=== PATIENT | female | born 1990 | race Caucasian/White ===

== ENCOUNTER 2022-11-22 15:22 | Outpatient (CLI) | payer MEDICAID, SELFPAY ==
[2022-11-22 19:23] LABS: Chlamydia DNA Amplified* NOT DETECTED (No Detected); GC DNA Amplified* NOT DETECTED (No Detected)
== END 2022-11-22 15:23 | disposition home or self-care (01) ==
LOC: NFLDREF 15:23
PROVIDERS: Visit Provider Registered Nurse
DX: Z34.91 Encounter for supervision of normal pregnancy, unspecified, first trimester (principal); Z3A.09 9 weeks gestation of pregnancy
CPT/HCPCS: 76817; 86592; 86703; 86704; 86706; 86762; 86787; 86803; 86850; 86900; 86901; 87086; 87340; 87491; 87591

== ENCOUNTER 2023-01-06 18:06 | Emergency (ER) | payer MEDICAID, SELFPAY ==
[2023-01-06 18:13] VITALS: BP 141/83; PULSE 103; RESP 18; TEMP 37.3; O2SAT 97; BMI 36.0
--- NOTE | 2023-01-06 18:36 | ED_ITS ---
HPI - Headache General Date Seen: 01/06/23 Chief Complaint: Headache/Migraine Stated Complaint: 15 weeks , migraine 6 days Time Seen by Provider: 01/06/23 18:14 Source: patient Mode of arrival: ambulatory Limitations: no limitations History of Present Illness HPI Narrative: Patient is a 32-year-old female with history of migraines who is presenting to the emergency department for a migraine. She states the headaches become life the past 6 days and his pulse to be in the back of her head. States she has had headaches like this before with a have never lasted this long. She was saw her OB and they gave her sumatriptan which usually helps with the symptoms. She has also been taking Tylenol for the symptoms and has not been helping. She is feeling mildly nauseated but has not vomited. Denies fevers, chills, weakness, numbness, lightheadedness, dizziness, diarrhea, abdominal pain, chest pain, shortness of breath. No other concerns at this time Related Data Home Medications Medication Instructions Recorded Confirmed calcium carbonate 200 mg calcium 200 mg PO BID 11/22/22 12/20/22 (500 mg) chewable tablet (Tums) cetirizine 10 mg tablet (Zyrtec) 10 mg PO QDAY PRN 11/22/22 12/20/22 docosahexaenoic acid 200 mg mg PO 11/22/22 12/20/22 capsule ( DHA) Previous Rx's Medication Instructions Recorded ondansetron 4 mg disintegrating 4 mg PO Q6H #30 tabs 11/22/22 tablet sumatriptan succinate 50 mg tablet 50 mg PO ONCE #10 tabs 01/04/23 Allergies Allergy/AdvReac Type Severity Reaction Status Date / Time No Known Drug Allergies Allergy Verified 12/20/22 11:38 Review of Systems Status of ROS: Reports: 10 or more systems reviewed and unremarkable except as noted in History and below PFSH PFSH Surgical History History of cholecystectomy ?Z90.49 - Acquired absence of other specified parts of digestive tract (ICD- 10) H/O endoscopy ?Z98.890 - Other specified postprocedural states (ICD-10) H/O colonoscopy ?Z98.890 - Other specified postprocedural states (ICD-10) Family History Aunt Ovarian cancer Social History What is your current living situation?: I presently have a place to live Problems where you live: no known problems In the past 12 months, utilities in danger of being shut off: no In past 12 months, lack of transportation kept you from medical appts, meetings, work, or getting things needed for daily living: no In the past 12 mos, have been you worried that your food would run out before you had money to buy more?: never true In the past 12 mos, the food you bought just didn't last and you didn't have money to buy more?: never true How often does anyone, including family, friends and others, physically hurt you : never How often does anyone, including family, friends and others, insult or talk down to you: never How often does anyone, including family, friends and others, threaten you with harm: never How often does anyone, including family, friends and others, scream or curse at you: never Little interest or pleasure in doing things: several days Feeling down, depressed, or hopeless: several days Exam Narrative: Exam Narrative: Const: Well-nourished, Well-developed, in mild distress Eyes: PERRL, no conjunctival injection, and symmetrical lids HENT: Atraumatic external nose and ears. Moist mucous membranes. Neck: Symmetric, trachea midline, No thyromegaly. CVS: RRR, No murmurs or gallops. Peripheral pulses 2+ and equal in all extremities RESP: Unlabored respiratory effort. Clear to auscultation bilaterally. GI: Nontender/Nondistended, No rebound or guarding. MSK:Extremities w/o deformity, Normal Active ROM Skin: Warm, Dry. No rashes or lesions. Neuro: Normal Muscle tone, No focal neurological deficits. Psych: Awake, Alert, & Oriented x3. Appropriate mood and affect. Const: Vital Signs, click to edit/add: Vital Signs - 24 hr 01/06/23 18:13 Temperature 99.1 F Pulse Rate [Pulse Oximeter] 103 H Respiratory Rate 18 Blood Pressure [Ri ght Upper Arm] 141/83 H Pulse Oximetry 97 Oxygen Delivery Me thod Room Air Course Vital Signs Vital signs: Initial Vital Signs Temperature 99.1 F 01/06/23 18:13 Temperature Source Temporal Artery Scan 01/06/23 18:13 Pulse Rate 103 H 01/06/23 18:13 Respiratory Rate 18 01/06/23 18:13 Blood Pressure 141/83 H 01/06/23 18:13 Blood Pressure Mean 102 01/06/23 18:13 Pulse Oximetry 97 01/06/23 18:13 Oxygen Delivery Method Room Air 01/06/23 18:13 Vital Signs Temperature 99.1 F 01/06/23 18:13 Pulse Rate 103 H 01/06/23 18:13 Respiratory Rate 18 01/06/23 18:13 Blood Pressure 141/83 H 01/06/23 18:13 Pulse Oximetry 97 01/06/23 18:13 Oxygen Delivery Method Room Air 01/06/23 18:13 Temperature 99.1 F 01/06/23 18:13 Pulse Rate 103 H 01/06/23 18:13 Respiratory Rate 18 01/06/23 18:13 Blood Pressure 141/83 H 01/06/23 18:13 Pulse Oximetry 97 01/06/23 18:13 Oxygen Delivery Method Room Air 01/06/23 18:13 Medications Administered Medications: Generic Name Dose Route Start Last Admin Trade Name Macy PRN Reason Stop Dose Admin Acetaminophen 1,000 mg 01/06/23 18:25 01/06/23 18:45 Acetaminophen 500 Mg Tablet PO 01/06/23 18:26 1,000 mg ONCE ONE Administration Diphenhydramine HCl 25 mg 01/06/23 18:25 01/06/23 18:46 Diphenhydramine 50 Mg/Ml Inj IVP 01/06/23 18:26 25 mg ONCE ONE Administration Lactated Ringer's 1,000 mls @ 1,000 mls/hr 01/06/23 18:25 01/06/23 18:46 Lactated Ringers 1000 Ml IV 01/06/23 19:24 1,000 mls/hr .Q1H ONE Administration Metoclopramide HCl 10 mg 01/06/23 18:25 01/06/23 18:46 Metoclopramide Hcl 5 Mg/Ml Inj IVP 01/06/23 18:26 10 mg ONCE ONE Administration MDM - Headache MDM Narrative Medical decision making narrative: Patient is a 32-year-old female presenting to emergency for her migraine. She has had migraines like this multiple times in the past. Symptoms are not improving with her home medication. States she has come emergency department before for her migraines she was given migraine cocktail which resolved the symptoms. I do not find it necessary to do imaging at this time since she has had similar headaches in the past. She will be given a migraine cocktail with Reglan, Benadryl, 1 L fluids and Tylenol. Patient is feeling much better after the migraine cocktail. She can be discharged home. She is agreeable to this plan. Discharge Plan Discharge Clinical Impression: Migraines Qualifiers: Migraine type: unspecified Status migrainosus presence: without status migrainosus Intractability: not intractable Qualified Code(s): G43.909 - Migraine, unspecified, not intractable, without status migrainosus Patient Disposition: Home, Self-Care Condition: Improved Instructions: Migraine Headache (ED) Additional Instructions: Follow-up with your primary care provider symptoms persist. Return for new or worsening symptoms. Prescriptions: No Action DHA 200 mg capsule PO cetirizine [Zyrtec] 10 mg tablet 10 mg PO QDAY PRN calcium carbonate [Tums] 200 mg calcium (500 mg) tablet,chewable 200 mg PO BID ondansetron 4 mg tablet,disintegrating 4 mg PO Q6H Qty: 30 1RF sumatriptan succinate 50 mg tablet 50 mg PO ONCE Qty: 10 0RF Rx Instructions: Take 1 tablet at onset. If no relief, can repeat by taking 1 tablet at least 2 hours later. Max is 4 tablets per 24 hours. Follow Up/Referrals: Provider,Not a Local [Primary Care Provider] - Stand Alone Forms: [facility] Info Inst[facility]
[2023-01-06] MEDS: ACETAMINOPHEN 500 MG TABLET 1000 MG PO (18:45)
[2023-01-06] MEDS: LACTATED RINGERS 1000 ML 1,000 ML IV (18:46)
[2023-01-06] MEDS: diphenhydrAMINE 50 MG/ML inj 25 MG IVP (18:46)
[2023-01-06] MEDS: METOCLOPRAMIDE HCL 5 MG/ML INJ 10 MG IVP (18:46)
== END 2023-01-06 19:38 | disposition home or self-care (01) ==
PROVIDERS: Emergency Provider Student in an Organized Health Care Education/Training Program
DX: G43.909 Migraine, unspecified, not intractable, without status migrainosus (principal)
CPT/HCPCS: 96374; 96375; 99283; 99284; A9270; J1200; J2765; J7120

== ENCOUNTER 2023-01-10 14:09 | Outpatient (CLI) | payer MEDICAID, SELFPAY | END 2023-01-10 14:10 | disposition home or self-care (01) | PROVIDERS: Visit Provider Obstetrics & Gynecology | DX: Z34.92 Encounter for supervision of normal pregnancy, unspecified, second trimester (principal); Z3A.16 16 weeks gestation of pregnancy | CPT/HCPCS: 82565; 82570; 84156; 84450; 84460; 84520 ==

== ENCOUNTER 2023-04-09 10:29 | Outpatient (REF) | payer MEDICAID, SELFPAY ==
--- OUTSIDE RECORDS SUMMARY | 2023-04-10 07:41 | XMS_ITS | Encounter Summary ---
Author Name Unknown Organization [place] Address [facility] [place] [address] Care Team Providers Care [employer] Scoreboard Operator Name Role Phone Karen Peña MD Primary [facility] P [facility] PROVIDER RELATIONS CONSULTANT Unavailable [phone] Reason for Referral * Consultation (Routine: Next available opening) - Pending Review Specialty Diagnoses / Procedures Referred By Jose L reeves Referred To Contact Diagnoses Family history of carrier of genetic disease Kimberly Theodore MD [id number] [place] [address] Referral ID Status Reason Start Date Expiration Date V isits Requested Visits Authorized [id number] Pending Review 02/20/2023 02/20/2024 1 1 Scheduling Instructions Gc after at on 02/21 H ROLLER OPERATOR Encounter Details Date Type Department Care Team (Late st Contact Info) Description 02/20/2023 Orders Only [facility] [place] [address] [place] [address] [place] [facility] [id number] [place] [address] Family history of carrier of genetic disease (Primary Dx) Social History Tobacco Use Types Packs/Day Years Used Date Smoking Tobacco: Some Days Cigarettes 0.5 Smokeless Tobacco: Never Alcohol Use Standard Drinks/Week Comments Yes 0 (1 standard drink = 0.6 oz pur e alcohol) occ PHQ-2 Answer Date Recorded PHQ-2 Score 3 10/29/2019 Adolescent Education Answer Date Record ed Getting School Help Needed Not on file 11/10 Estimated Date of Delivery Comme nts Yes 06/26/2023 Based on last me nstrual period of 09/19/2022 Sex and Gender Information Value Date Recorded Sex Assigned at Not on file Gender Identity Not on file Sexual Orientation Not on file documented as of this encounter Plan of Treatment Scheduled Referrals Name Type Priority Associated Diagnoses Orde r Schedule MFM Genetic Counseling Referral Routine: Next available opening Family history of carrier of genetic disease Expected: 02/20/2023 (Approximate), Expires: 02/21/2024 documented as of this encounter Visit Diagnoses Diagnosis Family history of carrier of genetic disease- Primary Family history of genetic disease carrier documented in this encounter Additional Health Concerns Assessment Noted Time PHQ-9 Depression Total Score: 14 020 4:15 PM CDT documented as of this encounter Care Teams [employer] Scoreboard Operator Relationship Specialty Start Date End Date Karen Peña MD [address] [place] [address] PCP - General Internal Medicine 09/16/18 Benita Gonsales NP [facility] [address] [place] [address] Nurse Practitioner Nurse Practitioner Psych/Mental Health 09/17/18 documented as of this encounter
--- OUTSIDE RECORDS SUMMARY | 2023-04-10 07:41 | XMS_ITS | Clinical Summary ---
Author Name Unknown Organization [facility] Address [address] [place] [id number] Care Team Providers [facility] Service Worker Name Role Phone Karen Peña MD Primary Care P rovider [facility] CL[facility] Unavailable [phone] Allergies No known active allergies Medications Medication Sig Dispensed Refills Start Date End Date Status cetirizine (ZYRTEC) 10 MG tablet Take 10 mg by mouth daily 0 Active medroxyPROGESTERone (DEPO-PROVERA) 150 MG/ML IM injectionIndications :Dysmenorrhea,Depo-P rovera contraceptive status Inject 1 mL (150 mg) into the muscle every 3 months 3 mL 3 10/29/2019 Active Additional Information Patient not taking.Reported on 04/11/2021 cyclobenzaprine (FLEXERIL) 10 MG tabletIndications:Ac [place] right-sided low back pain without sciatica Take 0.5-1 tablets (5-10 mg) by mouth 3 times daily as needed for muscle spasms 20 tablet 0 04/11/2021 Active Hospital, Clinic, or Other Facility Administered Medication Ordered Dose Route Frequency Start Date End Date Status medroxyPROGESTERone (DEPO-PROVERA) injection 150 mgIndications:Contracept ion 150 mg IM EVERY 3 MONTHS 02/14/2018 Active medroxyPROGESTERone (DEPO-PROVERA) syringe 150 mgIndications:Contracept verito management 150 mg IM EVERY 3 MONTHS 05/01/2019 Active Active Problems Problem Noted Date Diagnosed Date Acute bilateral low back pain without sciatica 0 04/18/2021 Cervical high risk HPV (human papillomavirus) te st positive 10/17/2018 Obesity (BMI 35.0-39.9) with comorbidity 019 Moderate recurrent major depression 09/17/2018 Hyperlipidemia with target LDL less than 130 01/2018 ROB (generalized anxiety disorder) 06/29/2016 Abnormal Pap smear of cervix 09/19/2014 Overview: 09/19/13 Abnormal pap, patient reported 10/18/14 Normal pap, pt reported 06/20/15 Normal pap, pt reported 07/31/17 ASCUS pap, neg HR HPV. Plan 1 year pap per provider 10/17/18 NIL pap, + HR HPV (16/18). 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 Overview: Overview: Paternal aunt ovarian cancer, dad with colon cancer by age 44, needs genetic evaluation External hemorrhoid 05/28/2013 Family history of colon cancer 05/28/2013 Estimated Date of Delivery Comme nts Yes 06/26/2023 Based on last ca nstrual period of 09/19/2022 Resolved Problems Problem Noted Date Diagnosed Date Resolved Date Anxiety 06/01/2016 09/17/2018 Encounters Date Type Department Care Team Description 03/14/2023 Telephone [facility] [address] [place] [phone] Shari Park GC Results (Friedreich Ataxia results) 02/21/2023 1:15 PM STRATIGRAPHY TEACHER Lab [facility] [address] [place] [phone] Kimberly Theodore MD Jones, Cresta Wedel, MD Family history of carrier of genetic disease 02/21/2023 12:30 PM STRATIGRAPHY TEACHER Office Visit [facility] [address] [place] [phone] Avinash Manning MD Stoner, Natalie E, GC Encounter of female for testing for genetic disease carrier status for procreative management (Primary Dx); Family history of carrier of genetic disease; Encounter for procreative genetic counseling and testing 02/21/2023 12:15 PM STRATIGRAPHY TEACHER Office Visit [facility] Medicine [place] [address] [place] [address] Kimberly Theodore MD Jones, Cresta Wedel, MD Hereditary disease in family possibly affecting fetus, affecting management of mother in , single or unspecified fetus (Primary Dx) 02/21/2023 11:45 AM STRATIGRAPHY TEACHER - 02/21/2023 11:59 PM STRATIGRAPHY TEACHER Hospital Encounter [facility] [place] [address] [place] [address] Kimberly Theodore MD Jones, Cresta Wedel, MD Encounter for follow-up ultrasound of anatomy Discharge Disposition: Home or Self Care 02/21/2023 Medical Correspondence [facility] [address] [place] [address] Outside, Provider 02/21/2023 Travel 02/20/2023 Orders Only [facility] [place] [address] [place] [phone] Shari Park GC Family history of carrier of genetic disease (Primary Dx) 01/29/2023 12:15 PM STRATIGRAPHY TEACHER Office Visit [facility] [place] [address] [place] [phone] Alesia Allred MD Burn, Martina, MD Encounter for follow-up ultrasound of anatomy (Primary Dx); Family history of genetic disease carrier 01/29/2023 11:45 AM STRATIGRAPHY TEACHER - 01/29/2023 11:59 PM STRATIGRAPHY TEACHER Hospital Encounter [facility] [place] [address] [place] [address] Alesia Allred MD Burn, Martina, MD related condition, antepartum Discharge Disposition: Home or Self Care 01/29/2023 11:00 AM STRATIGRAPHY TEACHER Office Visit [facility] [place] [address] [place] [address] Kimberly Theodore MD Stoner, Natalie E, GC Family history of genetic disease carrier (Primary Dx); Encounter for procreative genetic counseling 01/29/2023 Travel 01/19/2023 PRE VISIT [facility] [address] [place] [phone] Rosa Maria Segura RN Ultrasound (L2-Family history Fredreich Ataxia) 01/12/2023 Medical Correspondence [facility] [address] [place] [phone] Outside, Provider 01/12/2023 Transcribe Orders [facility] [place] [address] [place] [phone] Alesia Allred MD related condition, antepartum (Primary Dx) 01/10/2023 Medical Correspondence [facility] [address] [place] [address] Outside, Provider from Last 3 Months Immunizations Name Administration Dates Next Due DTaP, Unspecified 08/15/1993, 1,06/06/1989,01/30/1989, 9 Historic Hib Prohibit 04/09/1990 MMR 01/04/1990 OPV, unspecified 08/15/1993,04/09/1990, 9,1988 TDAP (Adacel,Boostrix) 03/22/2014 Family History Medical History Relation Comments Pancreatitis Brother Colon Cancer Father No Known Problems Maternal Grandfather No Known Problems Maternal Grandmother Gallbladder Disease Mother Gallbladder Disease Paternal Grandfather Other Cancer Paternal Grandfather No Known Problems Paternal Grandmother Gallbladder Disease Sister Relation Status Comments Brother Alive Father Alive Maternal Grandfather Maternal Grandmother Mother Alive Paternal Grandfather Alive Paternal Grandmother Sister Alive Social History Tobacco Use Types Packs/Day Years Used Date Smoking Tobacco: Some Days Cigarettes 0.5 Smokeless Tobacco: Never Tobacco Cessation:Ready to Q uit: No; Counseling Given: No Alcohol Use Standard Drinks/Week Comments Yes 0 [...] on file Sexual Orientation Not on file Last Filed Vital Signs Vital Sign Reading Time Taken Comments Blood Pressure 124/76 04/11/2021 2:28 PM STRATIGRAPHY TEACHER Pulse 78 04/11/2021 2:28 PM STRATIGRAPHY TEACHER Temperature 36.9 ??C (98.5 ??F) 04/11/2021 2:28 PM CS T Respiratory Rate 16 04/11/2021 2:28 PM STRATIGRAPHY TEACHER Oxygen Saturation 99% 04/11/2021 2:28 PM STRATIGRAPHY TEACHER Inhaled Oxygen Concentration - - Weight 88.9 kg (196 lb) 04/11/2021 2:28 PM STRATIGRAPHY TEACHER Height 162.6 cm (5' 4) 04/11/2021 2:28 PM STRATIGRAPHY TEACHER Body Mass Index 33.64 04/11/2021 2:28 PM STRATIGRAPHY TEACHER Plan of Treatment Health Maintenance Due Date Last Done Comments ADVANCE CARE PLANNING 1988 ANNUAL REVIEW OF HM ORDERS 1988 CT COLONOGRAPHY 1988 DEPRESSION ACTION PLAN 1988 FIT 1988 FLEX SIG 1988 HEPATITIS B IMMUNIZATION (1 of 3 - 3-dose series) 1988 sDNA (Cologuard) 1988 COVID-19 Vaccine (#1) 03/12/1989 Pneumococcal Vaccine: Pediatrics (0 to 5 Years) and At-Risk Patients (6 to 64 Years) (1 of 2 - PCV) 1994 HIV SCREENING 09/10/2003 HEPATITIS C SCREENING 2006 HPV FOLLOW-UP 10/18/2019 10/17/2018, 07/31/2017 NICOTINE/TOBACCO CESSATION COUNSELING Q 1 YR 10/18/2019 10/17/2018, 07/31/2017 PAP FOLLOW-UP 10/18/2019 10/17/2018, 07/20, 06/20/2015, Additional history exists YEARLY PREVENTIVE VISIT 10/18/2019 10/17/2018, 07/31 PHQ-9 04/27/2020 10/29/2019, 09/20, 09/17/2018, Additional history exists INFLUENZA VACCINE (#1) 2022 MATERNAL SCREENING DISCUSSION 11/28/2022 OBGCT (OB) 03/06/2023 COLONOSCOPY 10/25/2023 10/24/2018, 06/2018, 04/03/2017, Additional history exists COLORECTAL CANCER SCREENING 10/25/2023 DTAP/TDAP/TD IMMUNIZATION (7 - Td or Tdap) 03/22/2024 03/22/2014, 08/15/1993, 04/09/1990, Additional history exists PAP Discontinued 10/17/2018, 07/20, 06/20/2015, Additional history exists HPV IMMUNIZATION Aged Out No longer e ligible based on patient's age to complete this topic IPV IMMUNIZATION Aged Out No longer e ligible based on patient's age to complete this topic MENINGITIS IMMUNIZATION Aged Out No l onger eligible based on patient's age to complete this topic RSV MONOCLONAL ANTIBODY Aged Out No l onger eligible based on patient's age to complete this topic RSV VACCINE ( & 60+) (No Doses Required) Completed Procedures Procedure Name Priority Date/Time Associated Diagnosis Comments LABORATORY MISCELLANEOUS ORDER Routine 02/21/2023 12:58 PM STRATIGRAPHY TEACHER Family history of carrier of genetic disease [facility] US COMPREHENSIVE SINGLE F/U Routine 02/21/2023 12:26 PM STRATIGRAPHY TEACHER Encounter for follow-up ultrasound of anatomy [facility] US COMPREHENSIVE SINGLE Routine 01/29/2023 12:41 PM STRATIGRAPHY TEACHER related condition, antepartum from Last 3 Months Results * Other Laboratory; [facility]; FXN (Friedreich Ataxia) Repeat Expansion (Laboratory Miscellaneous Order) (02/21/2023 12:58 PM STRATIGRAPHY TEACHER) See Scanned Result LABORATORY MISCELLANEOUS ORDER-Scanned 03/14/2023 1:25 PM STRATIGRAPHY TEACHER MISCELLANEOUS TESTING Blood STRUCTURE OF RIGHT UPPER LIMB / Unknown Venipuncture / Unknown 02/21/2023 12:58 PM STRATIGRAPHY TEACHER 02/21/2023 12:59 PM STRATIGRAPHY TEACHER [facility] - BLOOD ORDERABL ES MISCELLANEOUS TESTING * [facility] Comprehensive Single F/U (02/21/2023 12:26 PM STRATIGRAPHY TEACHER) Anatomical Region Laterality Modality Ultrasound 02/21/2023 11:5 5 AM STRATIGRAPHY TEACHER Impressions 02/21/2023 1:28 PM STRATIGRAPHY TEACHER IMPRESSION ----- 1. Graf intrauterine at 22w 1d gestational age here for completion of anatomy. 2. The remaining anatomic survey was completed, no anomalies commonly detected by ultrasound were identified within the limits of ultrasound. 3. Growth parameters and estimated weight were consistent with established dates. EFW 90%. 4. The amniotic fluid volume appeared normal. Narrative 02/21/2023 1:28 PM STRATIGRAPHY TEACHER ?Comp Follow Up ----- Pat. Name: NAMAN AKHTAR ? Study Date: ??02/21/2023 11:55am Pat. NO: ??[id number] ?Referring ??MD: ALESIA ALLRED Site: ??[facility] ? Binder Technician: Lyudmila Segundo : ??1990 ?Age: ?? 32 ----- INDICATION ----- Suboptimal anatomy on previous u/s. Elevated BMI 35 Family history of Ashley Ataxia - getting carrier screening today METHOD ----- Transabdominal ultrasound examination. View: Sufficient ----- Graf . Number of fetuses: 1 DATING ----- ? Date ?Details ?Gest. age ?MP LMP ?09/19/2022 ? 22 w + 1 d ? 06/26/2023 Prior assessment ? 11/22/2022 ? GA: 9 w + 1 d ?22 w + 1 d ? 06/26/2023 U/S ? 02/21/2023 ?based upon AC, BPD, Femur, HC ? 23 w + 0 d ? 06/20/2023 Assigned dating ?Dating performed on 02/21/2023, based on the LMP ?22 w + 1 d ? 06/26/2023 GENERAL EVALUATION ----- Cardiac activity present. FHR 128 bpm. movements present. Presentation cephalic. Placenta No Previa, > 2 cm from internal os, Anterior. Umbilical cord 3 vessel cord. Amniotic fluid Amount of AF: normal. MVP 5.2 cm. BIOMETRY ----- Main Biometry: BPD ?54.4 ?mm ? 22w 4d ?Renny GALLEGOS ?74.7 ?mm ? 22w 6d ?Nicolaides HC ?206.4 ?mm ?22w 5d ?Hadlock Cerebellum tr ?24.5 ? mm ?22w 4d ?Nicolaides AC ?185.5 ?mm ?23w 2d ?79% ?Hadlock Femur ?41.0 ? mm ?23w 2d ?Hadlock Humerus ?35.9 ?mm ? 22w 4d ?Jagdish Weight Calculation: EFW ? 575 ? g ? 90% ?Hadlock EFW (lb,oz) ? 1 lb 4 ?oz EFW by ?Hadlock (CRA-TM-HB-FL) Head / Face / Neck Biometry: Protozoology Teacher ? 8.1 ? mm CM ?6.6 ? mm ANATOMY ----- The following structures appear normal: Head / Neck ? Cranium. Head size. Head shape. Lateral ventricles. Midline falx. Cavum septi pellucidi. Cerebellum. Cisterna magna. Thalami. Face ? Lips. Profile. Nose. Heart / Thorax ?4-chamber view. RVOT view. LVOT view. 3-vessel view. 3-yfcmkp-xrhxace view. ? Diaphragm. Abdomen ? Cord insertion. Stomach. Kidneys. Bladder. Spine ?Cervical spine. Thoracic spine. Lumbar spine. Sacral spine. Extremities / Skeleton ?Right foot. Gender: female. MATERNAL STRUCTURES ----- Cervix ?Visualized ? Appearance: Appears Closed ? Approach - Transabdominal: Cervical length 51.7 mm Right Ovary ?Normal Left Ovary ?Normal RECOMMENDATION ----- Thank-you for referring your patient for ultrasound assessment. I discussed the findings on today's ultrasound with the patient. I reviewed the limitations of ultrasound. Further ultrasound studies as clinically indicated with her primary team in [place]. Return to primary provider for continued care. If you have questions regarding today's evaluation or if we can be of further service, please contact the [facility]. anomalies may be present but not detected Procedure Note Avinash Manning MD - 02/21/2023 Comp Follow Up ----- Pat. Name: NAMAN AKHTAR Study Date: 02/21/2023 11:55am Pat. NO: [id number] Referring MD: ALESIA ALLRED Site: [facility] Binder Technician: Lyudmila Segundo RDMS : 1990 Age: 32 ----- INDICATION ----- Suboptimal anatomy on previous u/s. Elevated BMI 35 Family history of Ashley Ataxia - getting carrier screening today METHOD ----- Transabdominal ultrasound examination. View: Sufficient ----- Graf . Number of fetuses: 1 DATING ----- DateDetailsGest. age MP LMP w + 1 d 06/26/2023 Prior assessment 11/22/2022 GA: 9 w +1 d22 w + 1 d 06/26/2023 U/S 02/21/2023ased upon AC, BPD, Femur, HC23 w + 0 d 06/20/2023 Assigned dating Dating performed on 02/21/2023, based onthe LMP 22 w+ 1 d 06/26/2023 GENERAL EVALUATION ----- Cardiac activity present. FHR 128 bpm. movements present. Presentation cephalic. Placenta No Previa, > 2 cm from internal os, Anterior. Umbilical cord 3 vessel cord. Amniotic fluid Amount of AF: normal. MVP 5.2 cm. BIOMETRY ----- Main Biometry: BPD 54.4 mm22w 4d Hadlock OFD 74.7 mm22w 6d Nicolaides HC 206.4 mm22w 5d Hadlock Cerebellum tr 24.5 mm22w 4d Nicolaides AC 185.5 mm23w 2d 79% Hadlock Femur 41.0 mm23w 2d Hadlock Humerus 35.9 mm22w 4d Jagdish Weight Calculation: EFW 575 g90% Hadlock EFW (lb,oz) 1 lb 4 oz EFW by Renny ([id number]) Head / Face / Neck Biometry: Protozoology Teacher 8.1 mm CM 6.6 mm ANATOMY ----- The following structures appear normal: Head / Neck Cranium. Head size. Head shape.Lateral ventricles. Midline falx. Cavum septi pellucidi. Cerebellum.Cisterna magna. Thalami. Face Lips. Profile. Nose. Heart / Thorax 4-chamber view. RVOT view. LVOT view.3-vessel view. 1-hjmbbt-ngtbkyk view. Diaphragm. Abdomen Cord insertion. Stomach. Kidneys.Bladder. Spine Cervical spine. Thoracic spine.Lumbar spine. Sacral spine. Extremities / Skeleton Right foot. Gender: female. MATERNAL STRUCTURES ----- Cervix Visualized Appearance: Appears Closed Approach - Transabdominal:Cervical length 51.7 mm Right Ovary Normal Left Ovary Normal RECOMMENDATION ----- Thank-you for referring your patient for ultrasound assessment. I discussed the findings on today's ultrasound with the patient. Ireviewed the limitations of ultrasound. Further ultrasound studies as clinically indicated with her primary teamin [place]. Return to primary provider for continued care. If you have questions regarding today's evaluation or if we can be offurther service, please contact the [facility]. anomalies may be present but not detected IMPRESSION ----- 1. Graf intrauterine at 22w 1d gestational age here forcompletion of anatomy. 2. The remaining anatomic survey was completed, no anomaliescommonly detected by ultrasound were identified within the limits ofprenatal ultrasound. 3. Growth parameters and estimated weight were consistent withestablished dates. EFW 90%. 4. The amniotic fluid volume appeared normal. Kimberly Theodore MD Edgardo [facility] US ORDERABLE S * [facility] Comprehensive Single (01/29/2023 12:41 PM STRATIGRAPHY TEACHER) Anatomical Region Laterality Modality Ultrasound 01/29/2023 11:4 8 AM STRATIGRAPHY TEACHER Impressions 01/29/2023 1:06 PM STRATIGRAPHY TEACHER IMPRESSION ----- 1. Graf intrauterine at 18w 6d gestational age here for evaluation of anatomy. 2. No anomalies commonly detected by ultrasound or soft markers of aneuploidy were identified in the detailed anatomic survey within the limits of ultrasound, however some views were suboptimal, as described above. 3. Growth parameters and estimated weight were consistent with established dates. 4. The amniotic fluid volume appeared normal. 5. On transabdominal imaging the cervix appears long and closed. Narrative 01/29/2023 1:06 PM STRATIGRAPHY TEACHER ?Comprehensive ----- Pat. Name: NAMAN CORTÉS ? Study Date: ??01/29/2023 11:48am Pat. NO: ??[id number] ?Referring ??MD: ALESIA ALLRED Site: ??[facility] ? Binder Technician: Radha Steele RDMS : ??1990 ?Age: ?? 32 ----- INDICATION ----- Family history of Fredreich ataxia. Low risk NIPT. METHOD ----- Transabdominal ultrasound examination. View: Suboptimal view: limited by position. ----- Graf . Number of fetuses: 1 DATING ----- ? Date ?Details ?Gest. age ?MP LMP ?09/19/2022 ? 18 w + 6 d ? 06/26/2023 Prior assessment ? 11/22/2022 ? GA: 9 w + 1 d ?18 w + 6 d ? 06/26/2023 U/S ? 01/29/2023 ? based upon AC, BPD, Femur, HC ? 19 w + 3 d ? 06/22/2023 Assigned dating ?Dating performed on 01/29/2023, based on the LMP ? 18 w + 6 d ? 06/26/2023 GENERAL EVALUATION ----- Cardiac activity present. FHR 126 bpm. movements present. Presentation breech. Placenta Anterior, No Previa, > 2 cm from internal os. Umbilical cord 3 vessel cord. Amniotic fluid Amount of AF: normal. MVP 4.9 cm. BIOMETRY ----- Main Biometry: BPD ?43.4 ?mm ? 19w 1d ?Hadlock OFD ?61.4 ?mm ? 19w 6d ?Nicolaides HC ?168.9 ?mm ?19w 4d ?Hadlock Cerebellum tr ?21.8 ? mm ?20w 6d ?Nicolaides AC ?144.4 ?mm ?19w 5d ?76% ?Hadlock Femur ?30.2 ? mm ?19w 2d ?Hadlock Humerus ?28.7 ?mm ? 19w 2d ?Jagdish Weight Calculation: EFW ? 299 ? g ? 83% ?Hadlock EFW (lb,oz) ? 0 lb 11 ? oz EFW by ?Hadlock (CUS-TC-NI-FL) Head / Face / Neck Biometry: Protozoology Teacher ? 8.0 ? mm CM ?3.3 ? mm Nasal bone ? 5.4 ? mm Nuchal fold ? 4.4 ? mm ANATOMY ----- The following structures appear normal: Head / Neck ? Cranium. Head size. Head shape. Lateral ventricles. Choroid plexus. Midline falx. Cavum septi pellucidi. Cerebellum. Cisterna magna. ? Parenchyma. Thalami. Vermis. ? Neck. Nuchal fold. Face ? Lips. Profile. Nose. Maxilla. Mandible. Orbits. Lens. Heart / Thorax ?4-chamber view. RVOT view. LVOT view. Situs. Aortic arch view. Bicaval view. Ductal arch view. Superior vena cava. Inferior vena cava. ? 1-dpmpnj-lzdejft view. Cardiac position. Cardiac size. Cardiac rhythm. ? Right lung. Left lung. Diaphragm. Abdomen ? Abdominal wall. Cord insertion. Stomach. Bladder. Liver. Bowel. Genitals. Extremities / Skeleton ?Right arm. Right hand. Left arm. Left hand. Right leg. Left leg. Left foot. The following structures could not be adequately visualized: Heart / Thorax ?3-vessel view. Abdomen ? Kidneys. Spine ?Cervical spine. Thoracic spine. Lumbar spine. Sacral spine. Extremities / Skeleton ?Right foot. Gender: female. MATERNAL STRUCTURES ----- Cervix ?Visualized ? Appearance: Appears Closed ? Approach - Transabdominal: Cervical length 39.5 mm Right Ovary ?Not visualized Left Ovary ?Not visualized RECOMMENDATION ----- Thank-you for referring your patient for ultrasound assessment. I discussed the findings on today's ultrasound with the patient. I reviewed the limitations of ultrasound both in detecting aneuploidy and structural abnormalities. Ultrasound, when views completed, can routinely detect 80-90% of structural abnormalities. She had low risk cell free DNA for genetic screening this . Her history is notable for three of her sister's five children being affected by Friedreich's ataxia. She met with our genetic counselor following today's ultrasound to discuss options for carrier screening. Follow-up is scheduled here in three weeks to reassess anatomy that was suboptimally seen today. Return to primary provider for continued care. If you have questions regarding today's evaluation or if we can be of further service, please contact the [facility]. anomalies may be present but not detected I spent a total of 15 minutes on the date of this encounter including preparing to see the patient (reviewing medical records/tests), counseling and discussing the plan of care, documenting the visit in the electronic medical record, and communicating with other health home care scheduler and/or care coordination. Procedure Note Kimberly Theodore MD - 01/29/2023 Comprehensive ----- Pat. Name: NAMAN CORTÉS Study Date: 01/29/2023 11:48am Pat. NO: [id number] Referring MD: ALESIA ALLRED Site: [facility] Binder Technician: Radha Steele RDMS : 1990 Age: 32 ----- INDICATION ----- Family history of Fredreich ataxia. Low risk NIPT. METHOD ----- Transabdominal ultrasound examination. View: Suboptimal view: limited byfetal position. ----- Graf . Number of fetuses: 1 DATING ----- DateDetailsGest. age MP LMP w + 6 d 06/26/2023 Prior assessment 11/22/2022 GA: 9 w +1 d18 w + 6 d 06/26/2023 U/S 3based upon AC, BPD, Femur, HC19 w + 3 d 06/22/2023 Assigned dating Dating performed on 01/29/2023, based onthe LMP 18 w +6 d 06/26/2023 GENERAL EVALUATION ----- Cardiac activity present. FHR 126 bpm. movements present. Presentation breech. Placenta Anterior, No Previa, > 2 cm from internal os. Umbilical cord 3 vessel cord. Amniotic fluid Amount of AF: normal. MVP 4.9 cm. BIOMETRY ----- Main Biometry: BPD 43.4 mm19w 1d Hadlock OFD 61.4 mm19w 6d Nicolaides HC 168.9 mm19w 4d Hadlock Cerebellum tr 21.8 mm20w 6d Nicolaides AC 144.4 mm19w 5d 76% Hadlock Femur 30.2 mm19w 2d Hadlock Humerus 28.7 mm19w 2d Jagdish Weight Calculation: EFW 299 g83% Hadlock EFW (lb,oz) 0 lb 11 oz EFW by Hadlock ([id number]-DV-FL) Head / Face / Neck Biometry: Protozoology Teacher 8.0 mm CM 3.3 mm Nasal bone 5.4 mm Nuchal fold 4.4 mm ANATOMY ----- The following structures appear normal: Head / Neck Cranium. Head size. Head shape.Lateral ventricles. Choroid plexus. Midline falx. Cavum septi pellucidi.Cerebellum. Cisterna magna. Parenchyma. Thalami. Vermis. Neck. Nuchal fold. Face Lips. Profile. Nose. Maxilla.Mandible. Orbits. Lens. Heart / Thorax 4-chamber view. RVOT view. LVOT view.Situs. Aortic arch view. Bicaval view. Ductal arch view. Superior venacava. Inferior vena cava. 3-cnhbyh-xgxejgu view. Cardiacposition. Cardiac size. Cardiac rhythm. Right lung. Left lung.Diaphragm. Abdomen Abdominal wall. Cord insertion.Stomach. Bladder. Liver. Bowel. Genitals. Extremities / Skeleton Right arm. Right hand. Left arm. [place]. Right leg. Left leg. Left foot. The following structures could not be adequately visualized: Heart / Thorax 3-vessel view. Abdomen Kidneys. Spine Cervical spine. Thoracic spine.Lumbar spine. Sacral spine. Extremities / Skeleton Right foot. Gender: female. MATERNAL STRUCTURES ----- Cervix Visualized Appearance: Appears Closed Approach - Transabdominal:Cervical length 39.5 mm Right Ovary Not visualized Left Ovary Not visualized RECOMMENDATION ----- Thank-you for referring your patient for ultrasound assessment. I discussed the findings on today's ultrasound with the patient. Ireviewed the limitations of ultrasound both in detecting aneuploidy andstructural abnormalities. Ultrasound, when views completed, can routinely detect 80-90% of structuralabnormalities. She had low risk cell free DNA for genetic screeningthis . Her history is notable for three of her sister's five children beingaffected by Friedreich's ataxia. She met with our genetic counselorfollowing today's ultrasound to discuss options for carrier screening. Follow-up is scheduled here in three weeks to reassess anatomy that wassuboptimally seen today. Return to primary provider for continued care. If you have questions regarding today's evaluation or if we can be offurther service, please contact the [facility]. anomalies may be present but not detected I spent a total of 15 minutes on the date of this encounter includingpreparing to see the patient (reviewing medical records/tests), counselingand discussing the plan of care, documenting the visit in the electronic medical record, andcommunicating with other health home care scheduler and/or carecoordination. IMPRESSION ----- 1. Graf intrauterine at 18w 6d gestational age here forevaluation of anatomy. 2. No anomalies commonly detected by ultrasound or soft markers ofaneuploidy were identified in the detailed anatomic survey withinthe limits of ultrasound, however some views were suboptimal, as described above. 3. Growth parameters and estimated weight were consistent withestablished dates. 4. The amniotic fluid volume appeared normal. 5. On transabdominal imaging the cervix appears long and closed. [facility] R[facility] from Last 3 Months Care Teams Hospital Tray Service Worker Relationship Specialty Start Date End Date Karen Peña MD [address] [place], [place] [address] PCP - General Internal Medicine 09/16/18 Benita Gonsales NP [facility] [address], [place] [address] Nurse Practitioner Nurse Practitioner Psych/Mental Health 09/17/18
--- OUTSIDE RECORDS SUMMARY | 2023-04-10 07:41 | XMS_ITS | Encounter Summary ---
Author Name Unknown Organization [place] Address [address] [place] [address] Care Team Providers Care Last Greaser Name Role Phone Karen Peña MD Primary Care P rovider DruBenita nobles EMPLOYMENT TRAINING SPECIALIST Unavailable [phone] Encounter Details Date Type Department Care Team (Late st Contact Info) Description 02/21/2023 1:15 PM MARKETING COMMUNICATIONS ASSOCIATE Lab [facility] [address] [place] [address] Kimberly Theodore MD [address] [facility] [address] [place] [address] Avinash Manning MD [address] [facility] [address] [place] [address] Family history of carrier of genetic disease Social History Tobacco Use Types Packs/Day Years [...] as of this encounter Plan of Treatment Not on file documented as of this encounter Procedures Procedure Name Priority Date/Time Associated Diagnosis Comments LABORATORY MISCELLANEOUS ORDER Routine 02/21/2023 12:58 PM MARKETING COMMUNICATIONS ASSOCIATE Family history of carrier of genetic disease documented in this encounter Results * [facility]; FXN (Friedreich Ataxia) Repeat Expansion (Laboratory Miscellaneous Order) (02/21/2023 12:58 PM MARKETING COMMUNICATIONS ASSOCIATE) See Scanned Result LABORATORY MISCELLANEOUS ORDER-Scanned 03/14/2023 1:25 PM MARKETING COMMUNICATIONS ASSOCIATE MISCELLANEOUS TESTING Blood STRUCTURE OF RIGHT UPPER LIMB / Unknown Venipuncture / Unknown 02/21/2023 12:58 PM MARKETING COMMUNICATIONS ASSOCIATE 02/21/2023 12:59 PM MARKETING COMMUNICATIONS ASSOCIATE Shari Park [facility] LAB - BLOOD ORDERABL ES MISCELLANEOUS TESTING documented in this encounter Visit Diagnoses Diagnosis Family history of carrier of genetic disease Family history of genetic disease carrier documented in this encounter Additional Health Concerns Assessment Noted Time PHQ-9 Depression Total Score: 14 020 4:15 PM CDT documented as of this encounter Care Teams Last Greaser Relationship Specialty Start Date End Date Karen Peña MD [address] [place] [address] PCP - General Internal Medicine 09/16/18 Benita Gonsales NP [facility] [address] [place] [address] Nurse Practitioner Nurse Practitioner Psych/Mental Health 09/17/18 documented as of this encounter
--- OUTSIDE RECORDS SUMMARY | 2023-04-10 07:41 | XMS_ITS | Encounter Summary ---
Author Name Unknown Organization [place] Address [address] [place] [id number] Care Team Providers Care Insulation Applicator Name Role Phone Karen Peña MD Primary Care P ronicholasder [facility] FIELD ASSESSOR Unavailable [phone] Reason for Visit * Reason Comments Genetic Counseling Family history emily rn * Consultation (Routine: Next available opening) - Pending Review Specialty Diagnoses / Procedures Referred By Jose L reeves Referred To Contact Diagnoses Family history of carrier of genetic disease Kimberly Theodore MD [address] [facility] [address] [place] [address] Referral ID Status Reason Start Date Expiration Date V isits Requested Visits Authorized [id number] Pending Review 02/20/2023 02/20/2024 1 1 Encounter Details Date Type Department Care Team (Late st Contact Info) Description 02/21/2023 12:30 PM GRIP WRAPPER Office Visit [facility] [place] [address] [facility] [address] [place] [address] Avinash Manning MD [address] [facility] [address] [place] [address] Shari Park GC [address] [place] [address] Encounter of female for testing for genetic disease carrier status for procreative management (Primary Dx); Family history of carrier of genetic disease; Encounter for procreative genetic counseling and testing Social History Tobacco Use Types Packs/Day Years [...] on file documented as of this encounter Progress Notes * Shari Park, GC - 02/21/2023 12:30 PM CST [facility] Genetic Counseling Consult Patient: Tata Akhtar Preferred Name: Tata Date of : 1990 Date of Service: 02/21/23 Tata was seen at the [facility] for genetic consultation. Theindication for genetic counseling is family history concern. The patient was accompanied to this visit by their partner, John. The session was conducted in [place]. IMPRESSION/ PLAN 1. Tata had genetic screening earlier in this . Their non-invasive test was screen negative or low risk for screened conditions 2. During today's [facility] visit, Tata had a blood draw for screening for FXN (Friedreich Ataxia) Repeat Expansion through [employer] due to her family history of two nieces and a nephew with Friedreich Ataxia. Tata previously had a full genetic counseling session with myself on 01-29-23. We discussed options for screening at that time. I called her yesterday to see if she wanted to pursue the screening at this appointment and she elected to do so. Therefore, a genetic counseling session was added to her ultrasound appointment and consent was obtained today. 3. Since the patient chose aneuploidy screening via NIPT, quad screen is NOT recommended in the second trimester. If the patient desires screening for open neural tube defects, maternal serum AFP only is recommended, ideally between 16- 18 weeks gestation. 4. Tata had a level II comprehensive anatomy ultrasound today. Please see the ultrasound report for further details. 5. See [facility] consult note for further recommendations. HISTORY /Parity: Tata's history is insignificant. This is her first . CURRENT Current Age: [age] year old Age at Delivery: 32 year old MP: 06/26/2023, by Last Menstrual Period Gestational Age: 22w1d This is a single gestation. MEDICAL HISTORY Tata???s reported medical history is not expected to impact management or risks to development. FAMILY HISTORY A three-generation pedigree was obtained previously by a genetic counselor on 01-29-23 and is scanned under the Media tab in [employer]. There were no significant updates provided today. Please see the original documentation from myself, Shari Park, MS, [facility], for more information. The family historywas reported by Tata and their partner. Tata has a healthy brother (39y) who has no children. Tata also has a sister (37y) who has fivechildren. Two of Tata's nieces (13y, 6y) and one of her nephews (10y) have Friedreich's Ataxia. Of note, her nephew was diagnosed at 4-years-old. One of her nephews (11y) is a carrier. One of her nieces (7y) is neither a carrier nor affected with Friedreich's Ataxia. See information in carrier screening section. All of her nieces/nephews had molecular testing. Tata reports that she does not have access to one of their reports. Tata does not have a copy of her relative's genetic testing. We talked about how most cases of FAare caused by repeat expansion. I called and spoke to a [facility] genetic counselor, Katy, who confirmed that they could do this testing without a family genetic test report. She explained that a limitation of the test is that if the repeats are >187 the report will state that there is an expanded allele, but they will not know the exact number of repeats. This is a possibility as the greater the repeats, the earlier the onset of the condition. Tata's nephew had symptoms onset at 4-years-old which is early. I collected additional details on the family history for the [facility] requisition form. Affected family members include: Kayleigh Mercado (: 03/28/2012) age of onset: 4y Tiki Wright (: 06/26/2009) age of onset: 6y Sailor Mercado (: 12/07/2016) no symptoms yet, molecular diagnosis The reported family history is unremarkable for multiple miscarriages, stillbirths, defects, intellectual disabilities, and consanguinity. RISK ASSESSMENT FOR INHERITED CONDITIONS AND CARRIER SCREENING OPTIONS Expanded carrier screening is available to screen for autosomal recessive conditions and X-linked conditions in a large list of genes. Carrier screening does not test the but gives a risk assessment for the and future pregnancies to have the condition. Expanded carrier screeningis designed to identify carrier status for conditions that are primarily childhood or adolescent onset. Expanded carrier screening does not evaluate for adult-onset conditions such as hereditary cancer syndromes, dementia/ Alzheimer's disease, or cardiovascular disease risk factors. Additionally, expanded carrier screening is not comprehensive for all known genetic diseases or inherited conditions. Carrier screening does not test for all genetic and health conditions or risk factors. Autosomal recessive conditions happen when a mutation has been inherited from the egg and sperm andinclude conditions like cystic fibrosis, thalassemia, hearing loss, spinal muscular atrophy, and more. We reviewed that when both biological parents carry a harmful genetic change in a gene associated with autosomal recessive inheritance, each of their pregnancies has a 1 in 4 (25%) chance to be affected by that condition. X-linked conditions happen when a mutation has been inherited from the eggand include conditions like fragile X syndrome.With x-linked conditions, the specific risk generally depends on the chromosomal sex of the fetus, with XY individuals (generally male) being most severely affected. [place] screening was not reviewed due to focus on other topics. About [place] Screening The patient does have a family history of a known inherited condition: Friedreich Ataxia. Friedreich Ataxia Friedreich Ataxia (FA) is an autosomal recessive neurodegenerative condition. Clinical manifestations include gradual loss of strength in the arms and legs, dysarthria, ataxic gait, muscle spasticityin the lower limbs, loss of speech, impaired vision, hearing loss, hypertrophic cardiomyopathy and diabetes. FA occurs due to a GAA triplet repeat expansion in the FXN gene. Normal GAA repeat size is 5-33 GAArepeats, premutation is 34-65 GAA repeats and a full mutation is > 66 GAA repeats. Individuals with FA, have inherited a GAA expansion in both copies of their FXN gene, one from each parent. Carriers, like Tata's sister, have one functional FXN gene without a GAA expansion, and one FXN gene with a GAA expansion. In order for Tata and John's to be at risk of having FA, both Tata and John would have to be carriers. Since John does not have a family history of FA, he is at the general population risk to be a carrier for FA, which is 1 in 100 carrier risk. Since Tata's sister is an obligate carrier of FA, there is a 1 in 2 chance that Tata is a carrier of FA. Without pursuing any genetictesting, their risk to have a child with FA is 1 in 800. Tata's carrier risk x John's carrier risk x chance they both pass on a non- working copy of the FXN gene 1/2 x 1/100 x 1/4 = 1 in 800 Tata and John were offered FXN (Friedreich Ataxia) Repeat Expansion testing by [facility] to determine their carrier status. They were provided with CPT codes for testing at [facility]. Tata wanted tocheck with her insurance prior to having her blood drawn. She was provided with my contact information if she decides to pursue carrier screening for FA. We also discussed that if Tata and John were both carriers for FA, their risk to have an affected child would increased to 1 in 4 (25%). If they are both carriers, invasive testing ([facility] or amniocentesis) would be the only option to determine if the is affected. Babies with FA do not have physical defects that could be screened for by comprehensive level II ultrasound. testing could also be done. The patient has not had carrier screening previously. The patient elected to pursue carrier screening today. The screening will include 1 condition, FXN (Friedreich Ataxia) Repeat Expansion, through [facility] conditions. Carrier testing was offered to her partner, John, and declined today. The couple is aware that if Tata's results are positive, John will be recommended to have screening. We reviewed the Informed Consent for Genetic Testing form through [employer] and the patient signed the requisition form. We discussed that: Expanded carrier screening for mutations in a large panel of genes associated with autosomal recessive conditions including cystic fibrosis, spinal muscular atrophy, and others, is now available. We discussed that expanded carrier screening is designed to identify carrier status for conditions that are primarily childhood or adolescent onset. Expanded carrier screening does not evaluate for adult-onset conditions such as hereditary cancer syndromes, dementia/ Alzheimer's disease, or cardiovascular disease risk factors. Additionally, expanded carrier screening is not comprehensive for all known genetic diseases or inherited conditions. This is a screening test, and residual carrier status risk figures will be provided to the patient after results become available. Carrier screening is not meant to diagnose the patient with a condition, and generally carriers are asymptomatic. However, certain genes may confer increased risks for various health concerns in carriers (DMD, FMR1, etc).Patients are encouraged to share results with their primary care providers to ensure appropriate screening. If we are notified by the performing laboratory of a variant reclassification, the patient will be contacted. We reviewed that there is a law in place, the Genetic Information Nondiscrimination Act (JENNIFER), that protects patients from discrimination by health insurance companies and employers based on their genetic information. JENN[place]ER does not protect against discrimination by life insurance companies or disability insurance. We reviewed availability of expanded carrier screening through through [facility] and different panel sizes. [facility] will report on pseudodeficiency alleles, which are benign variants that are not known to be associated with disease and are not thought to impact the individuals risk to be a carrier for these conditions. However, the presence of pseudodeficiency alleles can exhibit false positive results on biochemical tests such as screen. [facility] laboratory will report the common 5T CFTR allele in isolation. If an individual is a carrier, family members could be as well. The patient is encouraged to share positive results with siblings and other family members of reproductive age. Additionally, even if there is not a high reproductive risk for a condition, it is possible that carrier status can be passed on to future generations. It was a pleasure to be involved with [facility]???s care. Hoku-ob-eqoy time of the meeting was 15 minutes. Shari Park, JENNYFER, MS, [facility] Board Certified and [place] Licensed Genetic Counselor [facility] Maternal Medicine Office: [phone] [facility]: [phone] [facility] WRAPPER documented in this encounter Plan of Treatment Not on file documented as of this encounter Results * Other Laboratory; [facility]; FXN (Friedreich Ataxia) Repeat Expansion (Laboratory Miscellaneous Order) (02/21/2023 12:58 PM GRIP WRAPPER) See Scanned Result LABORATORY MISCELLANEOUS ORDER-Scanned 03/14/2023 1:25 PM GRIP WRAPPER MISCELLANEOUS TESTING Blood STRUCTURE OF RIGHT UPPER LIMB / Unknown Venipuncture / Unknown 02/21/2023 12:58 PM GRIP WRAPPER 02/21/2023 12:59 PM GRIP WRAPPER Shari Park GC LAB - BLOOD ORDERABL ES MISCELLANEOUS TESTING documented in this encounter Visit Diagnoses Diagnosis Encounter of female for testing for genetic disease carrier status for procreative management- Primary Testing of female for genetic disease carrier status Family history of carrier of genetic disease Family history of genetic disease carrier Encounter for procreative genetic counseling and testing documented in this encounter Additional Health Concerns Assessment Noted Time PHQ-9 Depression Total Score: 14 020 4:15 PM CDT documented as of this encounter Care Teams Insulation Applicator Relationship Specialty Start Date End Date Karen Peña MD [address] [place] [address] PCP - General Internal Medicine 09/16/18 Benita Gonsales NP [facility] [address] [place] [address] Nurse Practitioner Nurse Practitioner Psych/Mental Health 09/17/18 documented as of this encounter
--- OUTSIDE RECORDS SUMMARY | 2023-04-10 07:41 | XMS_ITS | Encounter Summary ---
Author Name Unknown Organization [place] Address [facility] [place] [address] Care Team Providers Care Back Shoe Cutter Name Role Phone Karen Peña MD Primary [facility] PRODUCT DEVELOPMENT ACTUARY Unavailable [phone] Reason for Visit * Reason Comments Ultrasound L2-subopt anatomy Encounter Details Date Type Department Care Team (Late st Contact Info) Description 02/21/2023 12:15 PM RECREATION TEACHER Office Visit [facility] [place] [address] [facility] [address] [place] [address] Kimberly Theodore MD [address] [place] [address] Avinash Manning MD [address] [place] [address] Hereditary disease in family possibly affecting fetus, affecting management of mother in , single or unspecified fetus (Primary Dx) Social History Tobacco Use Types [...] as of this encounter Progress Notes * Avinash Manning MD - 02/21/2023 12:15 PM CST Please see full imaging report from [employer] program under imaging tab. Avinash Manning MD Maternal Medicine EATION TEACHER documented in this encounter Plan of Treatment Not on file documented as of this encounter Visit Diagnoses Diagnosis Hereditary disease in family possibly affecting fetus, affecting management of mother in , single or unspecified fetus- Primary documented in this encounter Additional Health Concerns Assessment Noted Time PHQ-9 Depression Total Score: 14 020 4:15 PM CDT documented as of this encounter Care Teams Back Shoe Cutter Relationship Specialty Start Date End Date Karen Peña MD [address] [place] [address] PCP - General Internal Medicine 09/16/18 Benita Gonsales NP [facility] [address] [place] [address] Nurse Practitioner Nurse Practitioner Psych/Mental Health 09/17/18 documented as of this encounter
--- OUTSIDE RECORDS SUMMARY | 2023-04-10 07:41 | XMS_ITS | Referral Summary ---
Author Name Unknown Organization [place] Address [address] [place] [address] Care Team Providers Care Brand Development Manager Name Role Phone Karen Peña MD Primary Care P kamaljitder DruBenita nobles NP Unavailable [phone] Encounters Date Type Department Care Team Description 03/14/2023 Telephone [facility] Maternal Medicine [facility] [address] [facility] [address] [place] [address] Shari Park GC Results (Friedreich Ataxia results) 02/21/[address] [facility] [address] [place] [phone] Outside, Provider 02/21/2023 1:15 PM ATTENDANT LODGING [employer]ACILITIES Lab [facility] [address] [place] [address] Kimberly Theodore MD Jones, Cresta Wedel, MD Family history of carrier of genetic disease 02/21/2023 Travel 02/21/2023 12:30 PM ATTENDANT LODGING FACILITIES Office Visit [facility] Medicine [facility] [address] [facility] [address] [place] [address] Avinash Manning MD Stoner, Natalie E, GC Encounter of female for testing for genetic disease carrier status for procreative management (Primary Dx); Family history of carrier of genetic disease; Encounter for procreative genetic counseling and testing 02/21/2023 12:15 PM ATTENDANT LODGING [employer]ACILITIES Office Visit [facility] Maternal [place] [address] [place] [phone] Kimberly Theodore MD Jones, Avinash Lacy MD Hereditary disease in family possibly affecting fetus, affecting management of mother in , single or unspecified fetus (Primary Dx) 02/21/2023 11:45 AM ATTENDANT LODGING [employer]ACILITIES - 02/21/2023 11:59 PM ATTENDANT LODGING [employer]ACILITIES Hospital Encounter [place] [address] [place] [phone] Kimberly Theodore MD Jones, Cresta Wedel, MD Encounter for follow-up ultrasound of anatomy Discharge Disposition: Home or Self Care 02/20/2023 Orders Only [place] [address] [facility] [address] [place] [phone] Shari Park GC Family history of carrier of genetic disease (Primary Dx) 01/29/2023 11:00 AM ATTENDANT LODGING [employer]ILITIES Office Visit [place] [address] [place] [phone] Kimberly Theodore MD Stoner, Natalie E, GC Family history of genetic disease carrier (Primary Dx); Encounter for procreative genetic counseling 01/29/2023 Travel 01/29/2023 12:15 PM ATTENDANT LODGING [employer]ACILITIES [facility] [place] [address] [facility] [address] [place] [phone] Alesia Allred MD Burn, Martina, MD Encounter for follow-up ultrasound of anatomy (Primary Dx); Family history of genetic disease carrier 01/29/2023 11:45 AM ATTENDANT [employer]GING [employer]IES - 01/29/2023 11:59 PM ATTENDANT LODGING [employer]ACILITIES Hospital Encounter [place] [address] [place] [phone] Alesia Allred MD Burn, Martina, MD related condition, antepartum Discharge Disposition: Home or Self Care 01/19/2023 PRE VISIT [place] [address] [facility] [address] [place] [phone] Rosa Maria Segura RN Ultrasound (L2-Family history Fredreich Ataxia) 01/12/2023 Medical Correspondence [facility] [address] [place] [phone] Outside, Provider 01/12/2023 Transcribe Orders [facility] [place] [address] [facility] [address] [place] [phone] Alesia Allred MD related condition, antepartum (Primary Dx) 01/10/2023 Medical Correspondence [facility] [address] [place] [phone] Outside, Provider from Last 3 Months Allergies No known active allergies Medications Medication [...] on 04/11/2021 cyclobenzaprine (FLEXERIL) 10 MG tabletIndications:Ac curyung right-sided low back pain without sciatica Take [...] on last me nstrual period of 09/19/2022 Resolved Problems Problem Noted Date Diagnosed Date Resolved Date Anxiety 06/01/2016 09/17/2018 Immunizations Name Administration Dates Next Due DTaP, Unspecified 08/15/1993, 1,06/06/1989,01/30/1989, 9 Historic Hib Prohibit 04/09/1990 MMR 01/04/1990 OPV, unspecified 08/15/1993,04/09/1990, 9,1988 TDAP (Adacel,Boostrix) 03/22/2014 Social History Tobacco Use Types Packs/Day Years [...] Comments Blood Pressure 124/76 04/11/2021 2:28 PM ATTENDANT [employer]ODGING [employer]ITIES Pulse 78 04/11/2021 2:28 PM ATTENDANT [employer]ODGING [employer]ITIES Temperature 36.9 ??C (98.5 ??F) 04/11/2021 2:28 PM CS T Respiratory Rate 16 04/11/2021 2:28 PM ATTENDANT LODGING [employer]ACILITIES Oxygen Saturation 99% 04/11/2021 2:28 PM ATTENDANT LODGING [employer]ILITIES Inhaled Oxygen Concentration - - Weight 88.9 kg (196 lb) 04/11/2021 2:28 PM ATTENDANT [employer]ODGING [employer]ILITIES Height 162.6 cm (5' 4) 04/11/2021 2:28 PM ATTENDANT [employer]ODGING [employer]ILITIES Body Mass Index 33.64 04/11/2021 2:28 PM ATTENDANT [employer]ODGING [employer]ILITIES Plan of Treatment Not on file Procedures Procedure Name Priority Date/Time Associated Diagnosis Comments LABORATORY MISCELLANEOUS ORDER Routine 02/21/2023 12:58 PM ATTENDANT LODGING [employer]ILITIES Family history of carrier of genetic disease [facility] US COMPREHENSIVE SINGLE F/U Routine 02/21/2023 12:26 PM ATTENDANT LODGING [employer]ACILITIES Encounter for follow-up ultrasound of anatomy [facility] US COMPREHENSIVE SINGLE Routine 01/29/2023 12:41 PM ATTENDANT [employer]ODGING [employer]ILITIES related condition, antepartum from Last 3 Months Results * Other Laboratory; [facility]; FXN (Friedreich Ataxia) Repeat Expansion (Laboratory Miscellaneous Order) (02/21/2023 12:58 PM ATTENDANT LODGING [employer]ACILITIES) See Scanned Result LABORATORY MISCELLANEOUS ORDER-Scanned 03/14/2023 1:25 PM ATTENDANT LODGING [employer]ACILITIES MISCELLANEOUS TESTING Blood STRUCTURE OF RIGHT UPPER LIMB / Unknown Venipuncture / Unknown 02/21/2023 12:58 PM ATTENDANT LODGING FACILITIES 02/21/2023 12:59 PM ATTENDANT LODGING [employer]ACILITIES Shari Park GC LAB - BLOOD ORDERABL ES MISCELLANEOUS TESTING * [facility] US Comprehensive Single F/U (02/21/2023 12:26 PM ATTENDANT LODGING [employer]ACILITIES) Anatomical Region Laterality Modality Ultrasound 02/21/2023 11:5 5 AM ATTENDANT LODGING [employer]ILITIES Impressions 02/21/2023 1:28 PM ATTENDANT LODGING [employer]ACILITIES IMPRESSION ----- 1. Graf intrauterine at 22w 1d gestational age here for completion of anatomy. 2. The remaining anatomic survey was completed, no anomalies commonly detected by ultrasound were identified within the limits of ultrasound. 3. Growth parameters and estimated weight were consistent with established dates. EFW 90%. 4. The amniotic fluid volume appeared normal. Narrative 02/21/2023 1:28 PM ATTENDANT LODGING [employer]ACILITIES ?Comp Follow Up ----- Pat. Name: NAMAN AKHTAR ? Study Date: ??02/21/2023 11:55am Pat. NO: ??[id number] ?Referring ??: ALESIA ALLRED Site: ??[facility] ? Office Mover: Lyudmila Segundo RDMS : ??1990 ?Age: ?? 32 ----- [...] Biometry: BPD ?54.4 ?mm ? 22w 4d ?Hadlock OFD ?74.7 ?mm ? 22w 6d ?Nicolaides HC ?206.4 ?mm ?22w 5d ?Hadlock Cerebellum tr ?24.5 ? mm ?22w 4d ?[place]olaides AC ?185.5 ?mm ?23w 2d ?79% ?Hadlock Femur ?41.0 ? mm ?23w 2d ?Hadlock Humerus ?35.9 ?mm ? 22w 4d ?[place]ag[place]ish Weight Calculation: EFW ? 575 ? g ? 90% ?Hadlock EFW (lb,oz) ? 1 lb 4 ?oz EFW by ?Hadlock ([id number]) Head / Face / Neck Biometry: Indirect Sales Representative ? 8.1 ? mm CM ?6.6 ? mm ANATOMY ----- The following structures appear normal: Head / Neck ? Cranium. Head size. Head shape. Lateral ventricles. Midline falx. Cavum septi pellucidi. Cerebellum. Cisterna magna. Thalami. Face ? Lips. Profile. Nose. Heart / Thorax ?4-chamber view. RVOT view. LVOT view. 3-vessel view. 0-myxqyj-zfmswgi view. ? Diaphragm. Abdomen ? Cord insertion. [...] clinically indicated with her primary team in [place]. Return to primary provider for continued care. If you have questions regarding today's evaluation or if we can be of further service, please contact the [facility]. anomalies may be present but not detected Procedure Note Avinash Manning MD - 02/21/2023 Comp Follow Up ----- Pat. Name: NAMAN AKHTAR Study Date: 02/21/2023 11:55am Pat. NO: [id number] Referring MD: ALESIA ALLRED Site: [facility] Office Mover: Lyudmila Segundo RDMS : 1990 Age: 32 [...] (lb,oz) 1 lb 4 oz EFW by Hadlock ([id number]-FL) Head / Face / Neck Biometry: Indirect Sales Representative 8.1 mm CM 6.6 mm ANATOMY ----- The following structures appear normal: Head / Neck Cranium. Head size. Head shape.Lateral ventricles. Midline falx. Cavum septi pellucidi. Cerebellum.Cisterna magna. Thalami. Face Lips. Profile. Nose. Heart / Thorax 4-chamber view. RVOT view. LVOT view.3-vessel view. 0-eauggx-jkgyyuc view. Diaphragm. Abdomen Cord insertion. Stomach. Kidneys.Bladder. [...] as clinically indicated with her primary teamin [place]. Return to primary provider for continued care. [...] fluid volume appeared normal. Kimberly Theodore MD [facility] US ORDERABLE S * [facility] Comprehensive Single (01/29/2023 12:41 PM ATTENDANT LODGING [employer]ACILITIES) Anatomical Region Laterality Modality Ultrasound 01/29/2023 11:4 8 AM ATTENDANT [employer]GING [employer]ITIES Impressions 01/29/2023 1:06 PM ATTENDANT [employer]ODGING [employer]ILITIES IMPRESSION ----- 1. Graf intrauterine at 18w [...] long and closed. Narrative 01/29/2023 1:06 PM ATTENDANT [employer]ODGING [employer]ITIES ?Comprehensive ----- Pat. Name: NAMAN CORTÉS ? Study Date: ??01/29/2023 11:48am Pat. NO: ??[id number] ?Referring ??MD: ALESIA ALLRED Site: ??[facility] ? Office Mover: Radha Steele RDMS : ??1990 ?Age: ?? [...] lb 11 ? oz EFW by ?Hadlock ([id number]-SB-[id number]-FL) Head / Face / Neck Biometry: Indirect Sales Representative ? 8.0 ? mm CM ?3.3 ? [...] Superior vena cava. Inferior vena cava. ? 9-rbnxyq-vfylrul view. Cardiac position. Cardiac size. Cardiac rhythm. [...] medical record, and communicating with other health manager critical care and/or care coordination. Procedure Note Kimberly Theodore MD - 01/29/2023 Comprehensive ----- Pat. Name: NAMAN CORTÉS Study Date: 01/29/2023 11:48am Pat. NO: [id number] Referring MD: ALESIA ALLRED Site: [facility] Office Mover: Radha Steele RDMS : 1990 Age: 32 [...] 0 lb 11 oz EFW by Hadlock (BCS-IM-IU-FL) Head / Face / Neck Biometry: Indirect Sales Representative 8.0 mm CM 3.3 mm Nasal bone [...] arch view. Superior venacava. Inferior vena cava. 4-lpfzah-lfwyvma view. Cardiacposition. Cardiac size. Cardiac rhythm. Right [...] electronic medical record, andcommunicating with other health manager critical care and/or carecoordination. IMPRESSION ----- 1. Graf intrauterine [...] the cervix appears long and closed. Alesia Allred MD [facility] US O RDERABLES from Last 3 Months Care Teams Brand Development Manager Relationship Specialty Start Date End Date Karen Peña MD [address] [place] [address] PCP - General Internal Medicine 09/16/18 Benita Gonsales NP [facility] [address] [place] [address] Nurse Practitioner Nurse Practitioner Psych/Mental Health 09/17/18
--- OUTSIDE RECORDS SUMMARY | 2023-04-10 07:41 | XMS_ITS | Encounter Summary ---
Author Name Unknown Organization [place] Address [address] [place] [address]. [place] [address] Care Team Providers Care Pin Feather Machine Operator Name Role Phone Karen Peña MD Primary Care P [facility]vider [facility] SUPERVISOR PLASMA Unavailable [phone] Encounter Details Date Type Department Care Team (Late st Contact Info) Description 02/21/2023 Medical Correspondence [facility] Info [place] [address] [place] [phone] Outside, Provider Social History Tobacco Use Types Packs/Day Years [...] documented as of this encounter Visit Diagnoses Not on filedocumented in this encounter Additional Health Concerns Assessment Noted Time PHQ-9 Depression Total Score: 14 020 4:15 PM CDT documented as of this encounter Care Teams Pin Feather Machine Operator Relationship Specialty Start Date End Date Karen Peña MD [address] [place], [place] [address] PCP - General Internal Medicine 09/16/18 Benita Gonsales NP [address] [address] Nurse Practitioner Nurse Practitioner Psych/Mental Health 09/17/18 documented as of this encounter
--- OUTSIDE RECORDS SUMMARY | 2023-04-10 07:41 | XMS_ITS | Encounter Summary ---
Author Name Unknown Organization [facility] Address [address] [place] [address] Care Team Providers Care Otorhinolaryngologist Name Role Phone Karen Peña MD Primary Care P rovider [facility] HEAD CD REACTOR OPERATOR Unavailable [phone] Reason for Referral * Diagnostic Imaging Ultrasound (Routine) - Pending Review Specialty Diagnoses / Procedures Referred By Contac t Referred To Contact Radiology. Diagnoses Encounter for follow-up ultrasound of anatomy Procedures [facility] US Comprehensive Single F/U Kimberly Theodore MD [address] [place] [address] Referral ID Status Reason Start Date Expiration Date V isits Requested Visits Authorized [id number] Pending Review 01/29/2023 01/29/2024 1 1 MBLER EQUIPMENT Reason for Visit * Diagnostic Imaging Ultrasound (Routine) - Pending Review Specialty Diagnoses / Procedures Referred By Contac t Referred To Contact Radiology. Diagnoses Encounter for follow-up ultrasound of anatomy Procedures [facility] US Comprehensive Single F/U Kimberly Theodore MD [address] [place] [address] Referral ID Status Reason Start Date Expiration Date V isits Requested Visits Authorized [id number] Pending Review 01/29/2023 01/29/2024 1 1 Encounter Details Date Type Department Care Team (Latest Contact Info) Description 02/21/2023 11:45 AM ASSEMBLER EQUIPMENT - 02/21/2023 11:59 PM ASSEMBLER EQUIPMENT Hospital Encounter [facility] [place] [address] [place] [address] Kimberly Theodore MD [address] [place] [address] Avinash Manning MD [address] [place] [address] Encounter for follow-up ultrasound of anatomy Discharge Disposition: Home or Self Care Social History Tobacco Use Types Packs/Day Years [...] on file documented as of this encounter Medications at Time of Discharge Medication Sig Dispensed Refills Start Date End Date cetirizine (ZYRTEC) 10 MG tablet Take 10 mg by mouth daily 0 cyclobenzaprine (FLEXERIL) 10 MG tabletIndications:Acute right-sided low back pain without sciatica Take 0.5-1 tablets (5-10 mg) by mouth 3 times daily as needed for muscle spasms 20 tablet 0 04/11/2021 medroxyPROGESTERone (DEPO-PROVERA) 150 MG/ML IM injectionIndications:Dysme norrhea,Depo-Provera contraceptive status Inject 1 mL (150 mg) into the muscle every 3 months 3 mL 3 10/29/2019 documented as of this encounter Plan of Treatment Not on file documented as of this encounter Procedures Procedure Name Priority Date/Time Associated Diagnosis Comments [facility] US COMPREHENSIVE SINGLE F/U Routine 02/21/2023 12:26 PM ASSEMBLER EQUIPMENT Encounter for follow-up ultrasound of anatomy documented in this encounter Results * [facility] US Comprehensive Single F/U (02/21/2023 12:26 PM ASSEMBLER EQUIPMENT) Anatomical Region Laterality Modality Ultrasound 02/21/2023 11:5 5 AM ASSEMBLER EQUIPMENT Impressions 02/21/2023 1:28 PM ASSEMBLER EQUIPMENT IMPRESSION ----- 1. Graf intrauterine at 22w 1d gestational age here for completion of anatomy. 2. The remaining anatomic survey was completed, no anomalies commonly detected by ultrasound were identified within the limits of ultrasound. 3. Growth parameters and estimated weight were consistent with established dates. EFW 90%. 4. The amniotic fluid volume appeared normal. Narrative 02/21/2023 1:28 PM ASSEMBLER EQUIPMENT ?Comp Follow Up ----- Pat. Name: TATA AKHTAR ? Study Date: ??02/21/2023 11:55am Pat. NO: ??[id number] ?Referring ??: DENISE ALLRED Site: ??[facility] ? Outpatient Therapist: Lyudmila Segundo RDMS : ??1990 ?Age: ?? [...] 1 lb 4 ?oz EFW by ?Hadlock ([id number]-FL) Head / Face / Neck Biometry: Shipping Point Inspector ? 8.1 ? mm CM ?6.6 ? mm ANATOMY ----- The following structures appear normal: Head / Neck ? Cranium. Head size. Head shape. Lateral ventricles. Midline falx. Cavum septi pellucidi. Cerebellum. Cisterna magna. Thalami. Face ? Lips. Profile. Nose. Heart / Thorax ?4-chamber view. RVOT view. LVOT view. 3-vessel view. 0-njppnl-oprrkyi view. ? Diaphragm. Abdomen ? Cord insertion. [...] clinically indicated with her primary team in [place]. Return to primary provider for continued care. If you have questions regarding today's evaluation or if we can be of further service, please contact the [facility] Center. anomalies may be present but not detected Procedure Note Avinash Manning MD - 02/21/2023 Comp Follow Up ----- Pat. Name: TATA AKHTAR Study Date: 02/21/2023 11:55am Pat. NO: [id number] Referring MD: DENISE ALLRED Site: [facility] Outpatient Therapist: Lyudmila Segundo RDMS : 1990 Age: 32 [...] d22 w + 1 d 06/26/2023 U/S 4based upon AC, BPD, Femur, HC23 w + [...] 1 lb 4 oz EFW by Hadlock ([id number]-FL) Head / Face / Neck Biometry: Shipping Point Inspector 8.1 mm CM 6.6 mm ANATOMY ----- The following structures appear normal: Head / Neck Cranium. Head size. Head shape.Lateral ventricles. Midline falx. Cavum septi pellucidi. Cerebellum.Cisterna magna. Thalami. Face Lips. Profile. Nose. Heart / Thorax 4-chamber view. RVOT view. LVOT view.3-vessel view. 1-zwczzh-llfwxhg view. Diaphragm. Abdomen Cord insertion. Stomach. Kidneys.Bladder. [...] as clinically indicated with her primary teamin [place]. Return to primary provider for continued care. [...] fluid volume appeared normal. Kimberly Theodore MD [facility] US ORDERABLE S documented in this encounter Visit Diagnoses Diagnosis Encounter for follow-up ultrasound of anatomy documented in this encounter Additional Health Concerns Assessment Noted Time PHQ-9 Depression Total Score: 14 020 4:15 PM CDT documented as of this encounter Care Teams Otorhinolaryngologist Relationship Specialty Start Date End Date Karen Peña MD [address] [place], [place] [id number] PCP - General Internal Medicine 09/16/18 Benita Gonsales NP [facility] [address] [place], [place] [address] Nurse Practitioner Nurse Practitioner Psych/Mental Health 09/17/18 documented as of this encounter
--- OUTSIDE RECORDS SUMMARY | 2023-04-10 07:41 | XMS_ITS | Encounter Summary ---
Author Name Unknown Organization [facility] Address [address] [place] [address] Care Team Providers Care Family Caseworker Name Role Phone Karen Peña MD Primary Care P rovider [facility] SAWYER Unavailable [phone] Reason for Referral * Consultation (Routine: Next available opening) - Pending Review Specialty Diagnoses / Procedures Referred By Jose L reeves Referred To Contact Diagnoses Family history of genetic disease carrier Kimberly Theodore MD [address] [place] [address] Referral ID Status Reason Start Date Expiration Date V isits Requested Visits Authorized [id number] Pending Review 01/29/2023 01/29/2024 1 1 OW REPRESENTATIVE * Diagnostic Imaging Ultrasound (Routine) - Pending Review Specialty Diagnoses / Procedures Referred By Jose L reeves Referred To Contact Radiology. Diagnoses Encounter for follow-up ultrasound of anatomy Procedures [facility] US Comprehensive Single F/U Kimberly Theodore MD [address] [place] [address] Referral ID Status Reason Start Date Expiration Date V isits Requested Visits Authorized [id number] Pending Review 01/29/2023 01/29/2024 1 1 OW REPRESENTATIVE Reason for Visit * Reason Comments Ultrasound L2-Family history of Fredreich Ataxia Encounter Details Date Type Department Care Team ([facility] Contact Info) Description 01/29/2023 12:15 PM ESCROW REPRESENTATIVE Office Visit [facility] [place] [address] [place] [address] Alesia Allred MD [address] [place] [address] Kimberly Theodore MD [address] [facility] [address] [place] [address] Encounter for follow-up ultrasound of anatomy (Primary Dx); Family history of genetic disease carrier Social History Tobacco Use Types Packs/Day Years [...] as of this encounter Progress Notes * Kimberly Theodore MD - 01/29/2023 12:15 PM CST Please see Imaging tab under Chart Review for details of today's visit. Kimberly Theodore OW REPRESENTATIVE documented in this encounter Plan of Treatment Scheduled Referrals Name Type Priority Associated Diagnoses Orde r Schedule [facility] Genetic Counseling Referral Routine: Next available opening Family history of genetic disease carrier Expected: 01/29/2023 (Approximate), Expires: 01/30/2024 documented as of this encounter Results * [facility] US Comprehensive Single F/U (02/21/2023 12:26 PM ESCROW REPRESENTATIVE) Anatomical Region Laterality Modality Ultrasound 02/21/2023 11:5 5 AM ESCROW REPRESENTATIVE Impressions 02/21/2023 1:28 PM ESCROW REPRESENTATIVE IMPRESSION ----- 1. Graf intrauterine at 22w 1d gestational age here for completion of anatomy. 2. The remaining anatomic survey was completed, no anomalies commonly detected by ultrasound were identified within the limits of ultrasound. 3. Growth parameters and estimated weight were consistent with established dates. EFW 90%. 4. The amniotic fluid volume appeared normal. Narrative 02/21/2023 1:28 PM ESCROW REPRESENTATIVE ?Comp Follow Up ----- Pat. Name: TATA AKHTAR ? Study Date: ??02/21/2023 11:55am Pat. NO: ??[id number] ?Referring ??MD: ALESIA ALLRED Site: ??[facility] ? Mannequin Wig Maker: Lyudmila Segundo RDMS : ??1990 ?Age: ?? [...] 1 lb 4 ?oz EFW by ?Hadlock ([id number]) Head / Face / Neck Biometry: Radio Interference Trouble Shooter ? 8.1 ? mm CM ?6.6 ? mm ANATOMY ----- The following structures appear normal: Head / Neck ? Cranium. Head size. Head shape. Lateral ventricles. Midline falx. Cavum septi pellucidi. Cerebellum. Cisterna magna. Thalami. Face ? Lips. Profile. Nose. Heart / Thorax ?4-chamber view. RVOT view. LVOT view. 3-vessel view. 4-bydind-acepqum view. ? Diaphragm. Abdomen ? Cord insertion. [...] clinically indicated with her primary team in [place]. Return to primary provider for continued care. If you have questions regarding today's evaluation or if we can be of further service, please contact the [facility]. anomalies may be present but not detected Procedure Note Avinash Manning MD - 02/21/2023 Comp Follow Up ----- Pat. Name: TATA AKHTAR Study Date: 02/21/2023 11:55am Pat. NO: [id number] Referring MD: ALESIA ALLRED Site: [facility] Mannequin Wig Maker: Lyudmila Segundo RDMS : 1990 Age: 32 [...] 1 lb 4 oz EFW by Hadlock ([id number]-FL) Head / Face / Neck Biometry: Radio Interference Trouble Shooter 8.1 mm CM 6.6 mm ANATOMY ----- The following structures appear normal: Head / Neck Cranium. Head size. Head shape.Lateral ventricles. Midline falx. Cavum septi pellucidi. Cerebellum.Cisterna magna. Thalami. Face Lips. Profile. Nose. Heart / Thorax 4-chamber view. RVOT view. LVOT view.3-vessel view. 2-ddceug-xrggyjc view. Diaphragm. Abdomen Cord insertion. Stomach. Kidneys.Bladder. [...] as clinically indicated with her primary teamin [place]. Return to primary provider for continued care. [...] Diagnoses Diagnosis Encounter for follow-up ultrasound of anatomy- Primary Family history of genetic disease carrier Encounter for follow-up ultrasound of anatomy documented in this encounter Additional Health Concerns Assessment Noted Time PHQ-9 Depression Total Score: 14 020 4:15 PM CDT documented as of this encounter Care Teams Family Caseworker Relationship Specialty Start Date End Date Karen Peña MD [address] [place] [address] PCP - General Internal Medicine 09/16/18 Benita Gonsales NP [facility] [address] [place] [address] Nurse Practitioner Nurse Practitioner Psych/Mental Health 09/17/18 documented as of this encounter
--- OUTSIDE RECORDS SUMMARY | 2023-04-10 07:41 | XMS_ITS | Encounter Summary ---
Author Name Unknown Organization [facility] Address [address] [place] [address] Care Team Providers Care Appellate Conferee Name Role Phone Karen Peña MD Primary Care P rovider Benita Gonsales FRUIT RANCHER Unavailable [phone] Encounter Details Date Type Department Care Team (Latest Contact Info) Description 01/29/2023 Travel Social History Tobacco Use Types Packs/Day Years [...] documented as of this encounter Care Teams Appellate Conferee Relationship Specialty Start Date End Date Karen Peña MD [address] [place] [address] PCP - General Internal Medicine 09/16/18 Benita Gonsales NP [address] [address] Nurse Practitioner Nurse Practitioner Psych/Mental Health 09/17/18 documented as of this encounter
--- OUTSIDE RECORDS SUMMARY | 2023-04-10 07:41 | XMS_ITS | Encounter Summary ---
Author Name Unknown Organization [facility] Address [address] [place] [address] Care Team Providers Care Financial Intern Name Role Phone Karen Peña MD Primary Care P kamaljitder [facility] INDUSTRIAL TWISTING MACHINE OPERATOR Unavailable Reason for Visit * Reason Comments Genetic Counseling Family history jacklyn ic disease carrier * Consultation (Routine: Next available opening) - Pending Review Specialty Diagnoses / Procedures Referred By Jose L reeves Referred To Contact Diagnoses Family history of genetic disease carrier Kimberly Theodore MD [address] [place] [address] Referral ID Status Reason Start Date Expiration Date V isits Requested Visits Authorized [id number] Pending Review 01/29/2023 01/29/2024 1 1 Encounter Details Date Type Department Care Team (Late st Contact Info) Description 01/29/2023 11:00 AM RETRIMMER Office Visit [facility] [place] [address] [facility] [address] [place] [address] Kimberly Theodore MD [address] [place] [address] Shari Park GC [address] [place] [address] Family history of genetic disease carrier (Primary Dx); Encounter for procreative genetic counseling Social History Tobacco Use Types Packs/Day Years [...] Progress Notes * Shari Park, GC - 01/29/2023 11:00 AM CST [facility] Genetic Counseling Consult Patient: Tata Akhtar Preferred Name: Tata Date of : 1990 Date of Service: 01/29/23 Tata was seen at the [facility] for genetic consultation. Theindication for genetic counseling is family history concern. The patient was accompanied to this visit by their partner, John. The session was conducted in Maldivian. IMPRESSION/ PLAN 1. Tata had genetic screening earlier in this . Their non-invasive test was screen negative or low risk for screened conditions 2. During today's [facility] visit, Tata had a genetic counseling session only. The patient will furtherconsider screening and diagnostic testing, but declined to proceed today. CPT codes for carrier screening were provided. 3. Since the patient chose aneuploidy screening via NIPT, quad screen is NOT recommended in the second trimester. If the patient desires screening for open neural tube defects, maternal serum AFP only is recommended, ideally between 16- 18 weeks gestation. 4. Tata had a level II comprehensive anatomy ultrasound today. Please see the ultrasound report for further details. 5. Further recommendation include a follow-up ultrasound with [facility]. The upcoming ultrasound has beenscheduled for 02/21/2023. HISTORY /Parity: Tata's history is insignificant. This is her first . CURRENT Current Age: [age] year old Age at Delivery: 32 year old MP: 06/26/2023, by Last Menstrual Period Gestational Age: 18w6d This is a single gestation. MEDICAL HISTORY Tata???s reported medical history is not expected to impact management or risks to development. FAMILY HISTORY A three-generation pedigree was obtained today and is scanned under the Media tab in [employer]. The family history was reported by Tata and their partner. The following significant findings were reported today: Tata has a healthy brother (39y) who [...] Ataxia. See information in carrier screening section. Tata's mother (61y) is healthy. She had her ovaries removed due to a benign tumor. Tata has twohealthy maternal aunts and a healthy maternal uncle. Tata's maternal grandparents are . Tata's father (61y) was diagnosed with colon cancer at [id number]. He has not had genetic testing, to her knowledge. Tata's maternal aunt was diagnosed with ovarian cancer <53-vxeea-uni and had negative genetic testing. Tata's father has two other siblings. Tata's paternal grandmother was diagnosed with lymphoma in her late 40s/early 50s and is . Tata's paternal grandfatheris still living. We discussed the family history of cancer briefly. Cancer most often occurs by chance; however, some families seem to develop cancer more frequently than expected. Everyone has a risk to develop cancer, but individuals may be at an increased risk to develop cancer based on their family history. Cancer family history, even without genetic testing, can change cancer screening recommendations for family members and aid in insurance coverage for access to them as well. The most informative individuals to complete cancer genetic counseling and genetic testing are those with a personal history of cancer or those closely related to the affected individuals. This may be Tata's father. If he does not want testing, Tata could consider testing. Tata declined for further information about the Cancer Risk Management Program. If the family wants more information they can contact the [facility] Cancer Risk Management Program ( ). John (35y) is healthy. John's mother (56y) had anal cancer. John has one maternal aunt. His maternal grandparents are still living. John has limited information about his father, but knows he has a paternal half-brother. His maternal half-sister (22y) is healthy. Otherwise, the reported family history is unremarkable for multiple [...] individuals (generally male) being most severely affected. [place] screening was not reviewed due to focus on other topics. About [place] Screening The patient does have a family history of a known inherited condition. 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 Friedreich Ataxia Friedreich Ataxia (FA) is [...] with a GAA expansion. In order for Christophe's to be at risk of having FA, [...] 1/100 x 1/4 = 1 in 800 Christophe were offered FXN (Friedreich Ataxia) Repeat Expansion testing by [facility] to determine their carrier status. They were provided with CPT codes for testing at [facility]. Tata wanted tocheck with her insurance prior [...] patient has not had carrier screening previously. We also discussed the [facility] comprehensive carrier screening panel of up to 558 conditions. It does not include Friedreich's Ataxia, but could be done if the couple wanted to know about the risks for other genetic conditions. Expanded carrier screening for mutations in a [...] availability of expanded carrier screening through through [facility] and different panel sizes. [facility] laboratory will report on pseudodeficiency alleles, which are benign variants that are not known to be associated with disease and are not thought to impact the individuals risk to be a carrier for these conditions. However, the presence of pseudodeficiency alleles can exhibit false positive results on biochemical tests such as screen. [facility] will report the common 5T CFTR allele [...] can be passed on to future generations. RISK ASSESSMENT FOR CHROMOSOME CONDITIONS We explained that the risk for chromosome abnormalities increases with maternal age. We discussed specific features of common chromosome abnormalities, including Down syndrome, trisomy 13, trisomy 18, and sex chromosome trisomies. At age 32 at midtrimester, the risk to have a baby with Down syndrome is 1 in 342. At age 32 at midtrimester, the risk to have a baby with any chromosome abnormality is 1 in 172. Tata had genetic screening earlier in this . Their non-invasive test was screennegative or low risk for screened conditions Non-invasive testing (NIPT) results Maternal plasma cell-free DNA testing Screens for trisomy 21, trisomy 13, trisomy 18, and sex chromosome aneuploidy First trimester ultrasound with nuchal translucency and nasal bone assessment was not performed in this , to our knowledge. Tata had a [facility] NIPT earlier in ; we reviewed the results today, which are low risk. The NIPT did not include sex chromosome aneuploidies. Given the accuracy of this test, these results greatly decrease the chance for certain chromosome abnormalities We discussed the limitations of normal NIPT results Maternal serum AFP only to screen for open neural tube defects (after 15 weeks) was not performed in this , to our knowledge. GENETIC TESTING OPTIONS Genetic testing during a includes screening and diagnostic procedures. Screening tests are non-invasive which means no risk to the and includes ultrasounds and blood work. The benefits and limitations of screening were reviewed. Screening tests provide a risk assessment (chance) specific to the for certain chromosome abnormalities but cannot definitively diagnose or exclude a chromosome abnormality. Follow-up genetic counseling and consideration of diagnostic testing is recommended with any abnormal screening result. Diagnostic testing during a is more certain and can test for more conditions. However, the tests do have a risk of miscarriage that requires careful consideration. These tests can detect chromosome ab normalities with greater than 99% certainty. Results can be compromised by maternal cell contamination or mosaicism and are limited by the resolution of current genetic testing technology. There is no screening or diagnostic test that detects all forms of defects or intellectual disability. We discussed the following screening options: Non-invasive testing (NIPT) Also called cell-free DNA screening because it detects chromosomes from the placenta in the person's blood Can be done any time after 10 weeks gestation Standard recommendation for NIPT screens for trisomy 21, trisomy 18, trisomy 13, with the option ofadding sex chromosome aneuploidies, without or without predicted sex Cannot screen for open neural tube defects, maternal serum AFP after 15 weeks is recommended New NIPT options include screening for other trisomies, microdeletion syndromes, and in some cases blood antigens. Guidelines do not recommend these conditions are included in standard screening. These options have limitations and should be discussed with a genetic counselor. However, current (2022) ACMG guidelines do recommend that screening for one microdeletion syndrome,called 22q11.2 deletion syndrome be offered to all patients. 22q11.2 deletion syndrome hasan estimated prevalence of 1 in 990 to 1 in 2148 (0.05-0.1%). Risk is not thought to increase with maternal age. Clinical features are variable but include congenital heart defects, cleft palate, developmental delays, immune system deficiencies, and hearing loss. Approximately 90% of cases are de luca (a sporadic new change in a ). Cell-free DNA screening for 22q11.2 deletion syndrome isavailable (Expanded NIPS through [facility]). We discussed the limitations of cell-free DNA screening in detecting microdeletions and the possiblity of false positives and false negatives. Expanded NIPS also allows for reflex to include other microdeletion conditions and rare autosomal trisomies if an indication would arise later in the . 22q11.2 deletion syndrome was not included in [facility]'s NIPT. We discussed the following ultrasound options: Comprehensive level II ultrasound ( Anatomy Ultrasound) Ultrasound done between 18-20 weeks gestation Screens for major defects and markers for aneuploidy (like trisomy 21 and trisomy 18) Includes looking at the fetus/baby's growth, heart, organs (stomach, kidneys), placenta, and amniotic fluid We discussed the following diagnostic options: Amniocentesis Invasive diagnostic procedure done after 15 weeks gestation The procedure collects a small sample of amniotic fluid for the purpose of chromosomal testing and/or other genetic testing Diagnostic result; more than 99% sensitivity for chromosome abnormalities Testing for AFP in the amniotic fluid can test for open neural tube defects It was a pleasure to be involved with [facility]???s care. Nwlm-as-qass time of the meeting was 25 minutes. Shari Park GC, MS, [facility] Board Certified and [place] Licensed Genetic Counselor [facility] Office: [phone] [facility]: [phone] [facility] IMMER documented in this encounter Plan of Treatment Not on file documented as of this encounter Visit Diagnoses Diagnosis Family history of genetic disease carrier- Primary Encounter for procreative genetic counseling documented in this encounter Additional Health Concerns Assessment Noted Time PHQ-9 Depression Total Score: 14 020 4:15 PM CDT documented as of this encounter Care Teams Financial Intern Relationship Specialty Start Date End Date Karen Peña MD [address] [place] [address] PCP - General Internal Medicine 09/16/18 Benita Gonsales NP [facility] [address] [place] [address] Nurse Practitioner Nurse Practitioner Psych/Mental Health 09/17/18 documented as of this encounter
--- OUTSIDE RECORDS SUMMARY | 2023-04-10 07:41 | XMS_ITS | Encounter Summary ---
Author Name Unknown Organization [facility] Address [address] [place] [address] Care Team Providers Care Fat Purification Worker Name Role Phone Karen Peña MD Primary Care P rovider Benita Gonsales BAND TOP MAKER Unavailable [phone] Encounter Details Date Type Department Care Team (Latest Contact Info) Description 02/21/2023 Travel Social History Tobacco Use Types Packs/Day [...] documented as of this encounter Care Teams Fat Purification Worker Relationship Specialty Start Date End Date Karen Peña MD [address] [place] [address] PCP - General Internal Medicine 09/16/18 Benita Gonsales NP [address] [address] Nurse Practitioner Nurse Practitioner Psych/Mental Health 09/17/18 documented as of this encounter
--- OUTSIDE RECORDS SUMMARY | 2023-04-10 07:41 | XMS_ITS | Encounter Summary ---
Author Name Unknown Organization [facility] Address [address] [facility] [place] [address] Care Team Providers Care Store Consultant Name Role Phone Karen Peña MD Primary Care P rovider [facility] GREENHOUSE SUPERINTENDENT Unavailable [phone] Reason for Visit * Reason Onset Date Comments Results 03/14/2023 Friedreich Ataxi a results Encounter Details Date Type Department Care Team ([facility] Contact Info) Description 03/14/2023 Telephone [facility] [place] [address] [facility] [address] [place] [address] Shari Park GC [address] [address] [place] [address] Results (Friedreich Ataxia results) Social History Tobacco Use Types Packs/Day Years [...] on file documented as of this encounter Miscellaneous Notes * Telephone Encounter - Shari Park GC - 03/14/2023 12:53 PM ONCOLOGY SOCIAL WORKER March 14, 2023 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 She had this testing done as carrier screening for her current due to her sister having children affected with this condition. 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 Trinucleotide repeats in the range of 5-33 are considered in the normal range. Autosomal recessive repeats [id number] are associated with full penetrance of Friedreich Ataxia. We discussed that this analysis does not rule out rare point mutations. There was not a review of Tata's nieces and nephew's genetic test results to confirm that it was due to trinucleotide repeat expansion, but this is the most common inheritance. Shari Park MS, [facility] Licensed Genetic Counselor [facility] Pager: [phone] Office: [phone] LOGY SOCIAL WORKER documented in this encounter Plan of Treatment Not on file documented as of this encounter Visit Diagnoses Not on filedocumented in this encounter Additional Health Concerns Assessment Noted Time PHQ-9 Depression Total Score: 14 020 4:15 PM CDT documented as of this encounter Care Teams Store Consultant Relationship Specialty Start Date End Date Karen Peña MD [address] [place] [address] PCP - General Internal Medicine 09/16/18 Benita Gonsales NP [facility] [address] [place] [address] Nurse Practitioner Nurse Practitioner Psych/Mental Health 09/17/18 documented as of this encounter
--- OUTSIDE RECORDS SUMMARY | 2023-04-10 07:42 | XMS_ITS | Encounter Summary ---
Author Name Unknown Organization [place] Address [address] [place] [address] Care Team Providers Care Ball Warper Tender Name Role Phone [facility], [facility] Primary Care Provide r None Primary Care Provider Unavailabl e No Ref-Primary, Physician Primary Care Provider Yolanda Chowdary APRN CHILD CARE CENTRE MANAGER Primary Care Provi renetta Unavailable Yolanda Chowdary APRN CHILD CARE CENTRE MANAGER Unavailable Un available Yolanda Chowdary APRN, CNP Unavailable Un available Karen Peña MD Unavailable Karen Peña MD Primary Care P rovider [facility], Benita L ELECTROPLATER Unavailable [phone] Yolanda Chowdary APRN CHILD CARE CENTRE MANAGER Unavailable Un available [facility], Benita L ELECTROPLATER Unavailable [phone] Karen Peña MD Unavailable Yolanda Chowdary APRN CHILD CARE CENTRE MANAGER Unavailable Un available Karen Peña MD Unavailable Yolanda Chowdary APRN CHILD CARE CENTRE MANAGER Unavailable Un available Yolanda Chowdary APRN, CNP Unavailable Un available Reason for Visit * Reason Onset Date Comments Panel Management 09/29/2014 pap due Encounter Details Date Type Department Care Team (Late st Contact Info) Description 09/29/[address] [facility] [id number] [place] [address], [address] [place] [address] [place] [address] [place] [address] Panel Management (pap due) Social History Tobacco Use Types Packs/Day Years Used Date Smoking Tobacco: Former Cigarettes 0.5 Alcohol Use Standard Drinks/Week Comments Yes 0 (1 standard drink = 0.6 oz pur e alcohol) Sex and Gender Information Value Date Recorded Sex Assigned at Not on file Gender Identity Not on file Sexual Orientation Not on file documented as of this encounter Miscellaneous Notes * Telephone Encounter - Tiffany Malik - 09/29/2014 1:43 PM CDT Panel Management Review Date of last visit with a [place] provider: Juan Miguel Wallace on 06/02/14. Date of next visit with a [place] provider: None. Problem List There is no problem list on file for this patient. Health Maintenance List Health Maintenance Topic Date Due ??? PAP SCREENING Q3 YR (SYSTEM ASSIGNED) 2009 ??? INFLUENZA VACCINE (SYSTEM ASSIGNED) 10/20/2014 ??? TETANUS IMMUNIZATION (SYSTEM ASSIGNED) 03/22/2024 For diabetic patients with hyperlipidemia, only choose diabetes. Composite cancer screening Chart review shows that this patient is due/due soon for the following Pap Smear No results found for this basename: pap No past surgical history on file. Is hysterectomy listed in surgical history? No Is mastectomy listed in surgical history? No Tobacco History History Smoking status ??? Former Smoker -- 0.50 packs/day Smokeless tobacco ??? Not on file Summary: Patient is due/failing the following: PAP Action needed: Patient needs office visit for physical/pap. Type of outreach: Phone, spoke to patient. coming in for a physical! Questions for provider review: None Please indicate office visit, lab, MTM, or nurse appt if needed. Indicate fasting or not fasting. Tiffany Malik MA Chart routed to Care Team . documented in this encounter Plan of Treatment Not on file documented as of this encounter Procedures Procedure Name Priority Date/Time Associated Diagnosis Comments PAP IMAGED THIN LAYER SCREEN Routine 09/19/2013 Screening for malignant neoplasm of cervix documented in this encounter Results * PAP imaged thin layer, screen (09/19/2013) PAP Date MISYS PAP MISYS Cytologic material (specimen) 09/19/2013 Narrative MISYS - 09/19/2013 [facility] Juan Miguel Wallace MD LAB - OPTIME CLI NICAL SPECIMEN MISYS documented in this encounter Visit Diagnoses Diagnosis Screening for malignant neoplasm of cervix- Primary Screening for malignant neoplasm of the cervix documented in this encounter Care Teams Ball Warper Tender Relationship Specialty Start Date End Date [facility], [facility] [address] [place], [place] [id number] PCP - General 04/16/14 06/20/16 None PCP - General 06/21/16 10/19/16 No Ref-Primary, Physician PCP - General 04/03/17 07/30/17 Yolanda Chowdary APRN CHILD CARE CENTRE MANAGER PCP - General Nurse Practitioner - Adult Health 07/31/17 09/15/18 Yolanda Chowdary APRN CHILD CARE CENTRE MANAGER PCP - Assigned PCP 08/05/17 04/23/18 Karen Peña MD [address] [place], [place] [address] PCP - General Internal Medicine 09/16/18 Yolanda Chowdary APRN CHILD CARE CENTRE MANAGER Assigned PCP 08/05/17 08/03/18 Karen Peña MD [address] [place], [place] [id number] Assigned PCP 08/04/18 11/01/19 Benita Gonsales NP [facility] [address] [place], [place] [id number] Nurse Practitioner Nurse Practitioner Psych/Mental Health 09/17/18 Yolanda Chowdary APRN CHILD CARE CENTRE MANAGER Assigned PCP 11/02/19 10/30/20 Benita Gonsales ELECTROPLATER [facility] [address] [place] [address] Assigned Behavioral Health Provider 12/12/19 03/20/20 Karen Peña MD [address] [place] [address] Assigned PCP 10/31/20 02/26/21 Yolanda Chowdary APRN CHILD CARE CENTRE MANAGER Assigned PCP 02/27/21 04/30/21 Karen Peña MD [address] [place] [address] Assigned PCP 05/01/21 10/21/21 Yolanda Chowdary APRN CHILD CARE CENTRE MANAGER Assigned PCP 10/22/21 02/03/22 Yolanda Chowdary APRN CHILD CARE CENTRE MANAGER Assigned PCP 04/15/22 04/21/22 documented as of this encounter
--- OUTSIDE RECORDS SUMMARY | 2023-04-10 07:42 | XMS_ITS | Encounter Summary ---
Author Name Unknown Organization [place] Address [address] [place] [address] Care Team Providers Care Relief Pharmacist Name Role Phone Karen Peña MD Primary Care P rovider [facility], Benita Hernandez OIL BURNER INSTALLER Unavailable [phone] Yolanda Chowdary APRN MEDICAL AIDES TEACHER Unavailable Un available [facility], Benita Hernandez OIL BURNER INSTALLER Unavailable [phone] Karen Peña MD Unavailable Yolanda Chowdary APRN MEDICAL AIDES TEACHER Unavailable Un available Karen Peña MD Unavailable Yolanda Chowdary APRN MEDICAL AIDES TEACHER Unavailable Un available Yolanda Chowdary APRN MEDICAL AIDES TEACHER Unavailable Un available Encounter Details Date Type Department Care Team (Late st Contact Info) Description 03/10/2020 [facility] Medical Advice [address] [place] [address] Cherelle Romero, RN Social History Tobacco Use Types Packs/Day Years Used Date Smoking Tobacco: Every Day Cigarettes 0.5 Smokeless Tobacco: Never Alcohol Use Standard Drinks/Week Comments Yes 0 (1 standard drink = 0.6 oz pur e alcohol) occ PHQ-2 Answer Date Recorded PHQ-2 Score 3 10/29/2019 Sex and Gender Information Value Date Recorded [...] documented as of this encounter Care Teams Relief Pharmacist Relationship Specialty Start Date End Date Karen Peña MD [address] [place] [address] PCP - General Internal Medicine 09/16/18 Benita Gonsales OIL BURNER INSTALLER [facility] [address] [place] [address] Nurse Practitioner Nurse Practitioner Psych/Mental Health 09/17/18 Yolanda Chowdary APRN MEDICAL AIDES TEACHER Assigned PCP 11/02/19 10/30/20 Benita Gonsales NP [facility] [address] [place] [address] Assigned Behavioral Health Provider 12/12/19 03/20/20 Karen Peña MD [address] [place] [address] Assigned PCP 10/31/20 02/26/21 Yolanda Chowdary APRN MEDICAL AIDES TEACHER Assigned PCP 02/27/21 04/30/21 Karen Peña MD [address] [place] [address] Assigned PCP 05/01/21 10/21/21 Yolanda Chowdary APRN MEDICAL AIDES TEACHER Assigned PCP 10/22/21 02/03/22 Yolanda Chowdary APRN MEDICAL AIDES TEACHER Assigned PCP 04/15/22 04/21/22 documented as of this encounter
--- OUTSIDE RECORDS SUMMARY | 2023-04-10 07:42 | XMS_ITS | Encounter Summary ---
Author Name Unknown Organization [place] Address [address] [place] [address]. [place] [address] Care Team Providers Care Telescope Maintenance Name Role Phone Karen Peña MD Primary Care P rovider Benita Gonsales MUSEUM SERVICE SCHEDULER Unavailable [phone] Encounter Details Date Type Department Care Team (Late st Contact Info) Description 01/10/2023 Medical Correspondence [facility] [address] [place] [address] Outside, Provider Social History Tobacco Use Types Packs/Day Years Used Date Smoking Tobacco: Some Days Cigarettes 0.5 Smokeless Tobacco: Never Alcohol Use Standard Drinks/Week Comments Yes 0 (1 standard drink = 0.6 oz pur e alcohol) occ PHQ-2 Answer Date Recorded PHQ-2 Score 3 10/29/2019 Adolescent Education Answer Date Record ed Getting School Help Needed Not on file 11/10 Sex and Gender Information Value Date Recorded [...] documented as of this encounter Care Teams Telescope Maintenance Relationship Specialty Start Date End Date Karen Peña MD [address] [place] [address] PCP - General Internal Medicine 09/16/18 Benita Gonsales NP [address] [address] Nurse Practitioner Nurse Practitioner Psych/Mental Health 09/17/18 documented as of this encounter
--- OUTSIDE RECORDS SUMMARY | 2023-04-10 07:42 | XMS_ITS | Encounter Summary ---
Author Name Unknown Organization [place] Address [address] [place] [address] Care Team Providers Care Shot Bagger Name Role Phone Karen Peña MD [facility] GUIDE SETTER Unavailable [phone] Reason for Referral * Diagnostic Imaging Ultrasound (Routine) - Pending Review Specialty Diagnoses / Procedures Referred By Contac t Referred To Contact Radiology. Diagnoses related condition, antepartum Procedures [facility] US Comprehensive Single Alesia Allred MD [address] [place] [address] Referral ID Status Reason Start Date Expiration Date V isits Requested Visits Authorized [id number] Pending Review 01/12/2023 01/12/2024 1 1 D TESTER * Consultation (Routine: Next available opening) - Pending Review Specialty Diagnoses / Procedures Referred By Contac t Referred To Contact Diagnoses related condition, antepartum Alesia Allred MD [address] [place] [address] Maternal Med [address] [place] [facility] [address] [place] [address] Referral ID Status Reason Start Date Expiration Date V isits Requested Visits Authorized [id number] Pending Review 01/12/2023 01/12/2024 1 1 Question Answer Preferred Location: [facility] MP 06/26/2023 Ultrasound Comprehensive US (>than 18 weeks GA) US PROC NONE MFM Issue Genetic Screening *MUST request Genetic Counseling - Family hx of Willowshannansujit PRINCE MD Consultation (unrelated to Ultrasound findings): No Inflammatory Bowel Disease Clinic: Joint MFM and GI Consultation: No Chronic Kidney Disease: Joint MFM and Nephrology Consultation No Genetic Counseling Consultation: Yes fax Alesia Allred, [facility] Women's Health, Comments There is no height or weight on file to calculate BMI. >> Patient may proceed with recommendations for further testing as directed by the Maternal Medicine Specialist >> >> If requesting Echo: MFM will determine appropriate location for exam due to indication. >> If requesting Lung Maturity Amnio: If results indicate lung maturity, induction or C/S is recommended within 36 hours. Please schedule accordingly. Please be aware that coverage of these services is subject to the terms and limitations of your health insurance plan. Call member services at your health plan with any benefit or coverage questions. D TESTER Encounter Details Date Type Department Care Team (Latest Contact Info) Description 01/12/2023 Transcribe Orders [facility] [place] [address] [facility] [address] [place] [address] Alesia Allred MD [address] [place] [address] related condition, antepartum (Primary Dx) Social History Tobacco Use Types [...] Type Priority Associated Diagnoses Orde r Schedule Mat Med Ctr Referral - Referral Routine: Next available opening related condition, antepartum Expected: 01/12/2023 (Approximate), Expires: 07/11/2023 documented as of this encounter Results * [facility] US Comprehensive Single (01/29/2023 12:41 PM SOUND TESTER) Anatomical Region Laterality Modality Ultrasound 01/29/2023 11:4 8 AM SOUND TESTER Impressions 01/29/2023 1:06 PM SOUND TESTER IMPRESSION ----- 1. Graf intrauterine at 18w [...] long and closed. Narrative 01/29/2023 1:06 PM SOUND TESTER ?Comprehensive ----- Pat. Name: TATA CORTÉS ? Study Date: ??01/29/2023 11:48am Pat. NO: ??[id number] ?Referring ??MD: ALESIA ALLRED Site: ??[facility] ? Fitness Supervisor: CEDRIC Garcia: ??1990 ?Age: ?? 32 ----- INDICATION ----- [...] lb 11 ? oz EFW by ?Hadlock ([id number]) Head / Face / Neck Biometry: Race Starter ? 8.0 ? mm CM ?3.3 ? [...] Superior vena cava. Inferior vena cava. ? 8-gujfte-xjpfulf view. Cardiac position. Cardiac size. Cardiac rhythm. [...] medical record, and communicating with other health intensive care medicine specialist and/or care coordination. Procedure Note Kimberly Theodore MD - 01/29/2023 Comprehensive ----- Pat. Name: TATA CORTÉS Study Date: 01/29/2023 11:48am Pat. NO: [id number] Referring MD: ALESIA ALLRED Site: [facility] Fitness Supervisor: Radha [place] RDMS : 1990 Age: 32 ----- INDICATION ----- Family history of Fredreich ataxia. Low risk NIPT. METHOD ----- Transabdominal ultrasound examination. View: Suboptimal view: limited byfetal position. ----- Graf . Number of fetuses: 1 DATING ----- DateDetailsGest. age MP LMP w + 6 d 06/26/2023 Prior assessment 11/22/2022 GA: 9 w +1 d18 w + 6 d 06/26/2023 U/S 01/29/2023ased upon AC, BPD, Femur, HC19 w + [...] (lb,oz) 0 lb 11 oz EFW by Renny ([id number]) Head / Face / Neck Biometry: Race Starter 8.0 mm CM 3.3 mm Nasal bone [...] arch view. Superior venacava. Inferior vena cava. 2-zxyoca-bgjyojy view. Cardiacposition. Cardiac size. Cardiac rhythm. Right [...] electronic medical record, andcommunicating with other health intensive care medicine specialist and/or carecoordination. IMPRESSION ----- 1. Graf intrauterine [...] appears long and closed. Alesia Allred MD IMG MFM US O RDERABLES documented in this encounter Visit Diagnoses Diagnosis related condition, antepartum- Primary related condition, antepartum documented in this encounter Additional Health Concerns Assessment Noted Time PHQ-9 Depression Total Score: 14 020 4:15 PM CDT documented as of this encounter Care Teams Shot Bagger Relationship Specialty Start Date End Date Karen Peña MD [address] [place], [place] [phone] PCP - General Internal Medicine 09/16/18 Benita Gonsales NP [facility] [address] [place], [place] [id number] Nurse Practitioner Nurse Practitioner Psych/Mental Health 09/17/18 documented as of this encounter
--- OUTSIDE RECORDS SUMMARY | 2023-04-10 07:42 | XMS_ITS | Encounter Summary ---
Author Name Unknown Organization [place] Address [address] [place] [address] Care Team Providers Care Insulation Worker Furnace Installer Name Role Phone Karen Peña MD [facility] Un[facility] [phone] Reason for Referral * Diagnostic Imaging Ultrasound (Routine) - Pending Review Specialty Diagnoses / Procedures Referred By Contac t Referred To Contact Radiology. Diagnoses related condition, antepartum Procedures [facility] US Comprehensive Alesia Serrato MD [address] [place] [address] Referral ID Status Reason Start Date Expiration Date V isits Requested Visits Authorized [id number] Pending Review 01/12/2023 01/12/2024 1 1 SOLUTIONS ARCHITECT Reason for Visit * Diagnostic Imaging Ultrasound (Routine) - Pending Review Specialty Diagnoses / Procedures Referred By Contac t Referred To Contact Radiology. Diagnoses related condition, antepartum Procedures [facility] US Alesia Hawley MD [address] [place] [address] Referral ID Status Reason Start Date Expiration Date V isits Requested Visits Authorized [id number] Pending Review 01/12/2023 01/12/2024 1 1 Encounter Details Date Type Department Care Team (Latest Contact Info) Description 01/29/2023 11:45 AM IT SOLUTIONS ARCHITECT - 01/29/2023 11:59 PM IT SOLUTIONS ARCHITECT Hospital Encounter [facility] Maternal Medicine [place] [address] [place] [phone] Alesia Allred MD [address] [place], [place] [address] Kimberly [place] MD [address] [place] [address] related condition, antepartum Discharge Disposition: Home or Self Care Social [...] Name Priority Date/Time Associated Diagnosis Comments [facility] US COMPREHENSIVE SINGLE Routine 01/29/2023 12:41 PM IT SOLUTIONS ARCHITECT related condition, antepartum documented in this encounter Results * [facility] US Comprehensive Single (01/29/2023 12:41 PM IT SOLUTIONS ARCHITECT) Anatomical Region Laterality Modality Ultrasound 01/29/2023 11:4 8 AM IT SOLUTIONS ARCHITECT Impressions 01/29/2023 1:06 PM IT SOLUTIONS ARCHITECT IMPRESSION ----- 1. Graf intrauterine at 18w [...] long and closed. Narrative 01/29/2023 1:06 PM IT SOLUTIONS ARCHITECT ?Comprehensive ----- Pat. Name: TATA CORTÉS ? Study Date: ??01/29/2023 11:48am Pat. NO: ??[id number] ?Referring ??: ALESIA ALLRED Site: ??[facility] ? Mounter Saxophones: Radha [place] RDMS : ??1990 ?Age: ?? [...] lb 11 ? oz EFW by ?Hadlock ([id number]-FL) Head / Face / Neck Biometry: Heel Builder Machine ? 8.0 ? mm CM ?3.3 ? [...] Superior vena cava. Inferior vena cava. ? 7-sojkxg-qqlbsoq view. Cardiac position. Cardiac size. Cardiac rhythm. [...] medical record, and communicating with other health career development coordinator and/or care coordination. Procedure Note Kimberly Theodore MD - 01/29/2023 Comprehensive ----- Pat. Name: TATA CORTÉS Study Date: 01/29/2023 11:48am Pat. NO: [id number] Referring MD: ALESIA ALLRED Site: [facility] Mounter Saxophones: Radha [place] RDMS : 1990 Age: 32 ----- INDICATION ----- Family history of Fredreich ataxia. Low risk NIPT. METHOD ----- Transabdominal ultrasound examination. View: Suboptimal view: limited byfetal position. ----- Graf . Number of fetuses: 1 DATING ----- DateDetailsGest. age MP LMP 8 w + 6 d 06/26/2023 Prior assessment [...] 0 lb 11 oz EFW by Hadlock ([id number]) Head / Face / Neck Biometry: Heel Builder Machine 8.0 mm CM 3.3 mm Nasal bone [...] arch view. Superior venacava. Inferior vena cava. 3-yjcqli-byxfbrm view. Cardiacposition. Cardiac size. Cardiac rhythm. Right [...] electronic medical record, andcommunicating with other health career development coordinator and/or carecoordination. IMPRESSION ----- 1. Graf intrauterine [...] this encounter Visit Diagnoses Diagnosis related condition, antepartum documented in this encounter Additional Health Concerns Assessment Noted Time PHQ-9 Depression Total Score: 14 020 4:15 PM CDT documented as of this encounter Care Teams Insulation Worker Furnace Installer Relationship Specialty Start Date End Date Karen Peña MD [address] [place], [place] [address] PCP - General Internal Medicine 09/16/18 Benita Gonsales NP [facility] [address] [place], [place] [address] Nurse Practitioner Nurse Practitioner Psych/Mental Health 09/17/18 documented as of this encounter
--- OUTSIDE RECORDS SUMMARY | 2023-04-10 07:42 | XMS_ITS | Encounter Summary ---
Author Name Unknown Organization [facility] Address [address] [place] [address] Care Team Providers Care Transaction Manager Name Role Phone Karen Peña MD [facility] FAMILY PROGRAM SPECIALIST Unavailable [phone] Reason for Visit * Reason Comments Ultrasound L2-Family history Fr edreich Ataxia Encounter Details Date Type Department Care Team (Late st Contact Info) Description 01/19/2023 PRE VISIT [facility] [place] [address] [facility] [address] [place] [address] Rosa Maria Segura RN Ultrasound (L2-Family history Fredreich Ataxia) Social History Tobacco Use Types Packs/Day Years [...] documented as of this encounter Care Teams Transaction Manager Relationship Specialty Start Date End Date Karen Peña MD [address] [place] [address] PCP - General Internal Medicine 09/16/18 Benita Gonsales NP [facility] [address] [place] [address] Nurse Practitioner Nurse Practitioner Psych/Mental Health 09/17/18 documented as of this encounter
--- OUTSIDE RECORDS SUMMARY | 2023-04-10 07:42 | XMS_ITS | Encounter Summary ---
Author Name Unknown Organization [place] Address [address] [place] [address]. [place] [address] Care Team Providers Care Contract Administration Manager Name Role Phone Karen Peña MD Primary Care P rovider Benita Gonsales ENDOSCOPY RN Unavailable [phone] Encounter Details Date Type Department Care Team (Late st Contact Info) Description 01/12/2023 Medical Correspondence [facility] [address] [place] [address] Outside, Provider Social History Tobacco Use [...] documented as of this encounter Care Teams Contract Administration Manager Relationship Specialty Start Date End Date Karen Peña MD [address] [place] [address] PCP - General Internal Medicine 09/16/18 Benita Gonsales NP [address] [address] Nurse Practitioner Nurse Practitioner Psych/Mental Health 09/17/18 documented as of this encounter
--- OUTSIDE RECORDS SUMMARY | 2023-04-10 07:42 | XMS_ITS | Encounter Summary ---
Author Name Unknown Organization [place] Address [address] [place] [address] Care Team Providers Care Race Starter Name Role Phone Karen Peña MD Unavailable Karen Peña MD Primary Care P rovider [facility], Benita L INVASIVE MANAGER Unavailable [phone] Yolanda Chowdary APRN GRAIN THRESHER Unavailable Un available [facility], Benita L INVASIVE MANAGER Unavailable [phone] Karen Peña MD Unavailable Yolanda Chowdary APRN GRAIN THRESHER Unavailable Un available Karen Peña MD Unavailable Yolanda Chowdary APRN GRAIN THRESHER Unavailable Un available Yolanda Chowdary APRN GRAIN THRESHER Unavailable Un available Encounter Details Date Type Department Care Team (Latest Contact Info) Description 10/29/2019 Historic Results Social History Tobacco Use Types Packs/Day Years [...] on file Sexual Orientation Not on file COVID-19 Exposure Response Date Recorded In the last month, have you been in contact with someone who was confirmed or suspected to have Coronavirus / COVID-19? No / Unsure 10/29/2019 3:32 PM CDT documented as of this encounter Plan of Treatment Not on file documented as of this encounter Visit Diagnoses Not on filedocumented in this encounter Additional Health Concerns Assessment Noted Time PHQ-9 Depression Total Score: 14 020 4:15 PM CDT documented as of this encounter Care Teams Race Starter Relationship Specialty Start Date End Date Karen Peña MD [address] [place] [address] PCP - General Internal Medicine 09/16/18 Karen Peña MD [address] [place], [place] [address] Assigned PCP 08/04/18 11/01/19 Benita Gonsales NP [facility] [address] [place], [place] [address] Nurse Practitioner Nurse Practitioner Psych/Mental Health 09/17/18 Yolanda Chowdary APRN GRAIN THRESHER Assigned PCP 11/02/19 10/30/[address] [facility] [address] [place] [address] Assigned Behavioral Health Provider 12/12/19 03/20/20 Karen Peña MD [address] [place] [address] Assigned PCP 10/31/20 02/26/21 Yolanda Chowdary APRN GRAIN THRESHER Assigned PCP 02/27/21 04/30/21 Karen Peña MD [address] [place], [place] [address] Assigned PCP 3/13/22 9/2/22 Yolanda Chowdary APRN GRAIN THRESHER Assigned PCP 10/22/21 02/03/22 Yolanda Chowdary APRN GRAIN THRESHER Assigned PCP 04/15/22 04/21/22 documented as of this encounter
--- OUTSIDE RECORDS SUMMARY | 2023-04-10 07:42 | XMS_ITS | Encounter Summary ---
Author Name Unknown Organization [place] Address [facility] [place] [address] Care Team Providers Care Pulmonology Technician Name Role Phone Karen Peña MD [facility] Unavailable Reason for Visit * Reason Onset Date Comments Conjunctivitis Entered automati lucas based on patient selection in MyChart. Conjunctivitis 08/30/2022 Encounter Details Date Type Department Care Team ([facility] st Contact Info) Description 08/30/2022 11:55 AM CDT E-Visit [facility] [address] [address] Heriberto Brooks, YOUNG [address] [place] [address] Conjunctivitis (Entered automatically base... Social History Tobacco Use Types Packs/Day Years [...] on file documented as of this encounter Patient Instructions * Patient Instructions* Heriberto Brooks PA-C - 08/30/2022 11:55 AM CDT Images from the original note were not included. Bacterial Conjunctivitis You have an infection in the membranes covering the white part of??the eye. This part of the eye iscalled the conjunctiva. The infection is called conjunctivitis. The most common symptoms of conjunctivitis include a thick, pus- like discharge from the eye, swollen eyelids, redness, eyelids stickingtogether upon awakening, and a gritty or scratchy feeling in the eye. Your infection was caused by bacteria. It may be treated with medicine. With treatment, the infection takes about 7 to 10 days toresolve. Home care ??? Use prescribed antibiotic eye drops or ointment as directed to treat the infection. ??? Apply a warm compress (towel soaked in warm water) to the affected eye 3 to 4 times a day. Do this just before applying medicine to the eye. ??? Use a warm, wet cloth to wipe away crusting of the eyelids in the morning. This is caused by mucus drainage during the night. You may also use saline irrigating solution or artificial tears to rinse away mucus in the eye. Do not put a patch over the eye. ??? Wash your hands before and after touching the infected eye. This is to prevent spreading the infection to the other eye, and to other people. Don't share your towels or washcloths with others. ??? You may use acetaminophen or ibuprofen to control pain, unless another medicine was prescribed.Talk with your healthcare provider before using these medicines if you have chronic liver or kidneydisease. Also talk with your provider if you have ever had a stomach ulcer or digestive bleeding. ??? Don't wear contact lenses until your eyes have healed and all symptoms are gone. Follow-up care Follow up with your healthcare provider, or as advised. When to seek medical advice Call your healthcare provider right away if any of these occur: ??? Worsening vision ??? Increasing pain in the eye ??? Increasing swelling or redness of the eyelid ??? Redness spreading around the eye [employer] last reviewed this educational content on 05/21/2019 ?? [id number] [employer]. All rights reserved. This information is not intended as a substitute for professional medical care. Always follow your healthcare professional's instructions. documented in this encounter Miscellaneous Notes * Telephone Encounter - Heriberto Brooks PA-C - 08/30/2022 12:01 PM CDT Provider E-Visit time total (minutes): 3 documented in this encounter Plan of Treatment Not on file documented as of this encounter Visit Diagnoses Diagnosis Acute bacterial conjunctivitis of left eye- Primary documented in this encounter Additional Health Concerns Assessment Noted Time PHQ-9 Depression Total Score: 14 020 4:15 PM CDT documented as of this encounter Care Teams Pulmonology Technician Relationship Specialty Start Date End Date Karen Peña MD [address] [place] [address] PCP - General Internal Medicine 09/16/18 Benita Gonsales NP [facility] [address] [place] [address] Nurse Practitioner Nurse Practitioner Psych/Mental Health 09/17/18 documented as of this encounter
== END 2023-04-09 10:30 | disposition home or self-care (01) ==
LOC: NFLDREF 10:29
PROVIDERS: Visit Provider Obstetrics & Gynecology
DX: Z34.90 Encounter for supervision of normal pregnancy, unspecified, unspecified trimester (principal); Z3A.28 28 weeks gestation of pregnancy
CPT/HCPCS: 86850

== ENCOUNTER 2023-04-18 08:20 | Outpatient (CLI) | payer MEDICAID, SELFPAY | END 2023-04-18 08:21 | disposition home or self-care (01) | LOC: NFLDREF 04-27 14:21 | PROVIDERS: Visit Provider Obstetrics & Gynecology | DX: R73.09 Other abnormal glucose (principal) | CPT/HCPCS: 82951; 82952 ==

== ENCOUNTER 2023-05-30 14:45 | Outpatient (CLI) | payer MEDICAID, SELFPAY ==
--- OUTSIDE RECORDS SUMMARY | 2023-05-30 16:29 | XMS_ITS | Encounter Summary ---
Author Name Unknown Organization [place] Address [address] [place] [address] Care Team Providers Care Performance Analyst Name Role Phone Karen Peña MD Primary Care P rovider DruBenita nobles MEDICAL I D SALES Unavailable [phone] Encounter Details Date Type Department Care Team (Late st Contact Info) Description 02/21/2023 1:15 PM FIRST ASSIST Lab [facility] [address] [place] [address] Kimberly Theodore MD [address] [facility] [address] [place] [address] Avinash Manning MD [address] [facility] [address] [place] [address] Family history of carrier of genetic disease Social History Tobacco Use Types Packs/Day Years Used Date Smoking Tobacco: Some Days Cigarettes Smokeless Tobacco: Never Alcohol Use Standard Drinks/Week [...] LABORATORY MISCELLANEOUS ORDER Routine 02/21/2023 12:58 PM FIRST ASSIST Family history of carrier of genetic disease documented in this encounter Results * Other Laboratory; [facility]; FXN (Friedreich Ataxia) Repeat Expansion (Laboratory Miscellaneous Order) (02/21/2023 12:58 PM FIRST ASSIST) See Scanned Result LABORATORY MISCELLANEOUS ORDER-Scanned 03/14/2023 1:25 PM FIRST ASSIST MISCELLANEOUS TESTING Blood STRUCTURE OF RIGHT UPPER LIMB / Unknown Venipuncture / Unknown 02/21/2023 12:58 PM FIRST ASSIST 02/21/2023 12:59 PM FIRST ASSIST Shari Park GC LAB - BLOOD ORDERABL ES MISCELLANEOUS TESTING documented in this encounter Visit Diagnoses Diagnosis Family history of carrier of genetic disease Family history of genetic disease carrier documented in this encounter Additional Health Concerns Assessment Noted Time PHQ-9 Depression Total Score: 14 020 4:15 PM CDT documented as of this encounter Care Teams Performance Analyst Relationship Specialty Start Date End Date Karen Peña MD [address] [place] [address] PCP - General Internal Medicine 09/16/18 Benita Gonsales NP [facility] [address] [place] [address] Nurse Practitioner Nurse Practitioner Psych/Mental Health 09/17/18 documented as of this encounter
--- OUTSIDE RECORDS SUMMARY | 2023-05-30 16:29 | XMS_ITS | Clinical Summary ---
Author Name Unknown Organization [place] Address [address] [place] [address] Care Team Providers Care Digital Tech Name Role Phone Karen Peña MD Primary [facility] Unavailable [phone] Allergies No known active allergies Medications Medication Sig Dispensed Refills Start Date End Date Status cetirizine (ZYRTEC) 10 MG tablet Take 10 mg by mouth daily Active medroxyPROGESTERone (DEPO-PROVERA) 150 MG/ML IM injectionIndications :Dysmenorrhea,Depo-P rovera contraceptive status Inject 1 mL (150 mg) into the muscle every 3 months 3 mL 3 10/29/2019 Active Additional Information Patient not taking.Reported on 04/11/2021 cyclobenzaprine (FLEXERIL) 10 MG tabletIndications:Ac squaxin right-sided low back pain without sciatica Take 0.5-1 tablets (5-10 mg) by mouth 3 times daily as needed for muscle spasms 20 tablet 04/11/2021 Active Hospital, Clinic, or Other Facility [...] Type Department Care Team Description 03/14/2023 Telephone [facility] [place] [address] [facility] [address] [place] [address] Shari Park, GC Results (Friedreich Ataxia results) from Last 3 Months Immunizations Name Administration [...] Tobacco: Some Days Cigarettes Smokeless Tobacco: Never Tobacco Cessation:Ready to Q [...] Comments Blood Pressure 124/76 04/11/2021 2:28 PM TILE SETTER Pulse 78 04/11/2021 2:28 PM TILE SETTER Temperature 36.9 ??C (98.5 ??F) 04/11/2021 2:28 PM CS T Respiratory Rate 16 04/11/2021 2:28 PM TILE SETTER Oxygen Saturation 99% 04/11/2021 2:28 PM TILE SETTER Inhaled Oxygen Concentration - - Weight 88.9 kg (196 lb) 04/11/2021 2:28 PM TILE SETTER Height 162.6 cm (5' 4) 04/11/2021 2:28 PM TILE SETTER Body Mass Index 33.64 04/11/2021 2:28 PM TILE SETTER Plan of Treatment Health Maintenance Due Date Last Done Comments ADVANCE CARE PLANNING 1990 ANNUAL REVIEW OF HM ORDERS [address] CT COLONOGRAPHY 1988 DEPRESSION ACTION PLAN 1988 FIT 1988 FLEX SIG 1988 sDNA (Cologuard) 1988 Pneumococcal Vaccine: Pediatrics (0 to 5 Years) and At-Risk Patients (6 to 64 Years) (1 of 2 - PCV) 1994 HIV SCREENING 09/10/2003 HEPATITIS C SCREENING 2006 HEPATITIS B IMMUNIZATION (1 of 3 - 19+ 3-dose series) 09/10/2007 HPV FOLLOW-UP 10/18/2019 10/17/2018, 07/31/2017 NICOTINE/TOBACCO CESSATION COUNSELING Q 1 YR 10/18/2019 10/17/2018, 07/31/2017 PAP FOLLOW-UP 10/18/2019 10/17/2018, 07/20, 06/20/2015, Additional history exists YEARLY PREVENTIVE VISIT 10/18/2019 10/17/2018, 07/31 PHQ-9 04/27/2020 10/29/2019, 09/20, 09/17/2018, Additional history exists COVID-19 Vaccine ( - 2022-24 season) 2022 INFLUENZA VACCINE (#1) 2022 MATERNAL SCREENING DISCUSSION 11/28/2022 OBGCT (OB) 03/06/2023 GROUP B STREP SCREENING 05/29/2023 COLONOSCOPY 10/25/2023 10/24/2018, 06/2018, 04/03/2017, Additional history [...] Procedure Name Priority Date/Time Associated Diagnosis Comments COLONOSCOPY - HIM SCAN 10/24/2018 12:00 AM CDT PAP IMAGED THIN LAYER SCREEN Routine 10/17/2018 5:50 PM CDT Routine general medical examination at a health care facility HPV HIGH RISK TYPES DNA CERVICAL Routine 10/17/2018 5:30 PM CDT Routine general medical examination at a health care facility from Last 3 Months or Most Recently Relevant to Health Maintenance Results * COLONOSCOPY - HIM SCAN (10/24/2018 12:00 AM CDT) 10/24/2018 Provider Outside PROCEDURES * Pap imaged thin layer screen with HPV - recommended age 30 - 65 years (select HPV order below) (10/17/2018 5:50 PM CDT) PAP NIL COPATH Copath Report Patient Name: TATA CORTÉS MR#: [id number] Specimen #: [id number] Collected: 10/17/2018 Received: 10/22/2018 Reported: 10/23/2018 13:53 Ordering Phy(s): KAREN PEÑA For improved result formatting, select 'View Enhanced Report Format' under Linked Documents section. SPECIMEN/STAIN PROCESS: Pap imaged thin layer prep screening (Surepath, FocalPoint with guided screening) ? Pap-Cyto x 1, HPV ordered x 1 SOURCE: Cervical, endocervical Pap imaged thin layer prep screening (Surepath, FocalPoint with guided screening) SPECIMEN ADEQUACY: Satisfactory for evaluation. -Transformation zone component present. CYTOLOGIC INTERPRETATION: Negative for intraepithelial lesion or malignancy Electronically signed out by: ANNA Galvez (ASCP) CLINICAL HISTORY: control, Previous ASC-US Date of Last Pap: 07/31/17, Papanicolaou Test Limitations: ??Cervical cytology is a screening test with limited sensitivity; regular screening is critical for cancer prevention; Pap tests are primarily effective for the diagnosis/preventi on of squamous cell carcinoma, not adenocarcinomas or other cancers. COLLECTION SITE: Client: ??[facility] Location: [place] ([place]) The [facility] of [facility], with the professional component performed at the [facility], [address] [place] [phone] ([phone]) COPATH Cytologic material (specimen) 10/17/2018 5:50 PM CDT 10/22/2018 7:35 AM CDT Karen Peña MD LAB - O PTIME CLINICAL SPECIMEN COPATH * (ABNORMAL) HPV High Risk Types DNA Cervical (10/17/2018 5:30 PM CDT) HPV Source SurePath 10/24/2018 8:05 AM CDT [facility] HPV 16 DNA Negative NEG^Nega tive 10/24/2018 2:44 PM CDT [facility] HPV 18 DNA Negative NEG^Nega tive 10/24/2018 2:44 PM CDT [facility] Other HR HPV Positive(A) NEG^Nega tive 10/24/2018 2:44 PM CDT [facility] Final Diagnosis This patient's sample is positive for other HR HPV DNA (types 31, 33, 35, 39, 45, 51, 52, 56, 58, 59, 66 or 68), not HPV 16 or HPV 18 DNA. This result requires clinical correlation with concurrent cytology findings. 10/24/2018 2:44 PM CDT [facility] Comment: This test was developed and its performance characteristics determined by the [facility]. It has not been cleared or approved by the FDA. The laboratory is regulated under CLIA as qualified to perform high-complexity testing. This test is used for clinical purposes. It should not be regarded as investigational or for research. (Note) METHODOLOGY: ??The Nancy edith 4800 system uses automated extraction, simultaneous amplification of HPV (L1 region) and beta-globin, ?? followed by ??real time detection of fluorescent labeled HPV and beta globin using specific oligonucleotide probes . The test specifically identifies types HPV 16 DNA and HPV 18 DNA while concurrently detecting the rest of the high risk types (31, 33, 35, 39, 45, 51, 52, 56, 58, 59, 66 or 68). COMMENTS: ??This test is not intended for use as a screening device for women under age 30 with normal cervical cytology. ??Results should be correlated with cytologic and histologic findings. Close clinical followup is recommended. Specimen Description Cervical Cells 10/24/2018 8:05 AM CDT [facility] Comment:[id number] 10/17/2018 5:30 PM CDT 10/17/2018 6:10 PM CDT Karen Peña MD LAB - B LOOD ORDERABLES [facility] [address] [place] [address] from Last 3 Months or Most Recently Relevant to Health Maintenance Care Teams Digital Tech Relationship Specialty Start Date End Date Karen Peña MD [address] [place] [address] PCP - General Internal Medicine 09/16/18 Benita Gonsales NP [facility] [address] [place], [place] [address] Nurse Practitioner Nurse Practitioner Psych/Mental Health 09/17/18
--- OUTSIDE RECORDS SUMMARY | 2023-05-30 16:29 | XMS_ITS | Encounter Summary ---
Author Name Unknown Organization [place] Address [address] [place] [address] Care Team Providers Care Principal Biostatistician Name Role Phone Karen Peña MD Primary Care [facility] ECMO SPECIALIST Unavailable [phone] Reason for Visit * Reason Comments Genetic Counseling Family history emily rn * Consultation (Routine: Next available opening) - Pending Review Specialty Diagnoses / Procedures Referred By Jose L reeves Referred To Contact Diagnoses Family history of carrier of genetic disease Kimberly Theodore MD [address] [facility] [address] [place] [address] Referral ID Status Reason Start Date Expiration Date V isits Requested Visits Authorized [id number] Pending Review 02/20/2023 02/20/2024 1 1 Encounter Details Date Type Department Care Team (Late st Contact Info) Description 02/21/2023 12:30 PM C WPF DEVELOPER Office Visit [facility] [place] [address] [facility] [address] [place] [address] Avinash Manning MD [address] [facility] [address] [place] [address] Shari Park GC [address] [place] [address] [place] [address] Encounter of female for testing [...] Park, GC - 02/21/2023 12:[address] [facility] Genetic Counseling Consult Patient: Tata Akhtar Preferred Name: Tata Date of : 1990 Date of Service: 02/21/23 Tata was seen at the [facility] for genetic consultation. Theindication for genetic counseling is family history concern. The patient was accompanied to this visit by their partner, John. The session was conducted in Iranian. IMPRESSION/ PLAN 1. Tata had genetic screening earlier in this . Their non-invasive test was screen negative or low risk for screened conditions 2. 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 5. See [facility] consult note for further recommendations. HISTORY [...] is scanned under the Media tab in [employer]. There were no significant updates provided today. Please see the original documentation from myself, Shari Park, MS, [facility], for more information. The family historywas reported [...] expansion. I called and spoke to a [facility] genetic counselor, Katy, who confirmed [...] details on the family history for the [facility] requisition form. Affected family members [...] individuals (generally male) being most severely affected. [place] screening was not reviewed due to focus on other topics. 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 They were provided with CPT codes for testing at [facility]. Tata wanted tocheck with her insurance prior [...] condition, FXN (Friedreich Ataxia) Repeat Expansion, through [facility] [facility].. She declined to [facility] comprehensive carrier screening for 558 conditions. Carrier testing was offered to her partner, John, and declined today. The couple is aware that if Tata's results are positive, John will be recommended to have screening. We reviewed the Informed Consent for Genetic Testing form through [facility] and the patient signed the requisition form. [...] through [facility] laboratory and different panel sizes. [facility] laboratory will report on pseudodeficiency alleles, which are benign variants that are not known to be associated with disease and are not thought to impact the individuals risk to be a carrier for these conditions. However, the presence of pseudodeficiency alleles can exhibit false positive results on biochemical tests such as screen. [facility] laboratory will report the common 5T CFTR [...] was a pleasure to be involved with [facility]???s care. [id number] time of the meeting was 15 minutes. Shari Park, GC, MS, [facility] Board Certified and [place] Licensed Genetic Counselor [facility] Office: [phone] MFM: [phone] [facility] C WPF DEVELOPER documented in this encounter Plan of Treatment Not on file documented as of this encounter Results * Other Laboratory; [facility]; FXN (Friedreich Ataxia) Repeat Expansion (Laboratory Miscellaneous Order) (02/21/2023 12:58 PM C WPF DEVELOPER) See Scanned Result LABORATORY MISCELLANEOUS ORDER-Scanned 03/14/2023 1:25 PM C WPF DEVELOPER MISCELLANEOUS TESTING Blood STRUCTURE OF RIGHT UPPER LIMB / Unknown Venipuncture / Unknown 02/21/2023 12:58 PM C WPF DEVELOPER 02/21/2023 12:59 PM C WPF DEVELOPER Shari Park GC LAB - BLOOD ORDERABL [...] documented as of this encounter Care Teams Principal Biostatistician Relationship Specialty Start Date End Date Karen Peña MD [address] [place] [address] PCP - General Internal Medicine 09/16/18 Benita Gonsales NP [facility] [address] [place] [address] Nurse Practitioner Nurse Practitioner Psych/Mental Health 09/17/18 documented as of this encounter
--- OUTSIDE RECORDS SUMMARY | 2023-05-30 16:29 | XMS_ITS | Encounter Summary ---
Author Name Unknown Organization [place] Address [address] [facility] [place] [address] Care Team Providers Care Clinical Reimbursement Specialist Name Role Phone Karen Peña MD Primary [facility] P rovider [facility] CABLE WEAVER Unavailable [phone] Reason for Visit * Reason Onset Date Comments Results 03/14/2023 Friedreich Ataxi a results Encounter Details Date Type Department Care Team ([facility] Contact Info) Description 03/14/2023 Telephone [facility] [place] [address] [facility] [address] [place] [address] Shari Park GC [address] [address] [place] [address] Results (Friedreich Ataxia results) Social [...] Shari Park GC - 03/14/2023 12:53 PM BUCK SWAMPER March 14, 2023 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 She had this testing done as carrier screening for her current due to her sister having children affected with this condition. 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 Trinucleotide repeats in the range of 5-33 are considered in the normal range. Autosomal recessive repeats [id number] are associated with full penetrance of Friedreich Ataxia. We discussed that this analysis does not rule out rare point mutations. There was not a review of Tata's nieces and nephew's genetic test results to confirm that it was due to trinucleotide repeat expansion, but this is the most common inheritance. Shari Park MS, [facility] Licensed Genetic Counselor [facility] Pager: [phone] Office: [phone] SWAMPER documented in this encounter Plan of Treatment Not on file documented as of this encounter Visit Diagnoses Not on filedocumented in this encounter Additional Health Concerns Assessment Noted Time PHQ-9 Depression Total Score: 14 020 4:15 PM CDT documented as of this encounter Care Teams Clinical Reimbursement Specialist Relationship Specialty Start Date End Date Karen Peña MD [address] [place] [address] PCP - General Internal Medicine 09/16/18 Benita Gonsales NP [facility] [address] [place] [address] Nurse Practitioner Nurse Practitioner Psych/Mental Health 09/17/18 documented as of this encounter
--- OUTSIDE RECORDS SUMMARY | 2023-05-30 16:29 | XMS_ITS | Encounter Summary ---
Author Name Unknown Organization [place] Address [address] [place] [address] Care Team Providers Care Sports Internship Name Role Phone Karen Peña MD Primary Care P rovider Benita Gonsales SUTURE POLISHER Unavailable [phone] Encounter Details Date Type Department Care [...] documented as of this encounter Care Teams Sports Internship Relationship Specialty Start Date End Date Karen Peña MD [address] [place] [address] PCP - General Internal Medicine 09/16/18 Benita Gonsales NP NPI: [id number] [place] [address] [address] [place] [address] Nurse Practitioner Nurse Practitioner Psych/Mental Health 09/17/18 documented as of this encounter
--- OUTSIDE RECORDS SUMMARY | 2023-05-30 16:29 | XMS_ITS | Encounter Summary ---
Author Name Unknown Organization [place] Address [address] [place] [address]. [place] [address] Care Team Providers Care Drill Doctor Name Role Phone Karen Peña MD Primary [facility]ider [facility] CHART COMPUTER Unavailable [phone] Encounter Details Date Type Department Care Team (Late st Contact Info) Description 02/21/2023 Medical Correspondence [facility] Info [facility] [address] [place] [address] Outside, Provider Social History Tobacco Use [...] documented as of this encounter Care Teams Drill Doctor Relationship Specialty Start Date End Date Karen Peña MD [address] [place], [place] [address] PCP - General Internal Medicine 09/16/18 Benita Gonsales NP [address] [address] Nurse Practitioner Nurse Practitioner Psych/Mental Health 09/17/18 documented as of this encounter
--- OUTSIDE RECORDS SUMMARY | 2023-05-30 16:29 | XMS_ITS | Encounter Summary ---
Author Name Unknown Organization [place] Address [facility] [place] [address] Care Team Providers Care Senior Talent Acquisition Specialist Name Role Phone Karen Peña MD [facility] SHIPPING PROCESSOR Unavailable [phone] Reason for Visit * Reason Comments Ultrasound L2-subopt anatomy Encounter Details Date Type Department Care Team (Late st Contact Info) Description 02/21/2023 12:15 PM CONCRETE HANDLER Office Visit [facility] Maternal Medicine Center [place] [address] [facility] [address] [place] [address] Kimberly Theodore MD [address] [place] [address] Avinash Manning MD [address] [place] [address] Hereditary disease in family possibly [...] imaging tab. Avinash Manning MD Maternal Medicine RETE HANDLER documented in this encounter Plan of Treatment Not on file documented as of this encounter Visit Diagnoses Diagnosis Hereditary disease in family possibly affecting fetus, affecting management of mother in , single or unspecified fetus- Primary documented in this encounter Additional Health Concerns Assessment Noted Time PHQ-9 Depression Total Score: 14 020 4:15 PM CDT documented as of this encounter Care Teams Senior Talent Acquisition Specialist Relationship Specialty Start Date End Date Karen Peña MD [address] [place] [address] PCP - General Internal Medicine 09/16/18 Benita Gonsales NP [facility] [address] [place] [place], [place] [address] Nurse Practitioner Nurse Practitioner Psych/Mental Health 09/17/18 documented as of this encounter
--- OUTSIDE RECORDS SUMMARY | 2023-05-30 16:29 | XMS_ITS | Referral Summary ---
Author Name Unknown Organization [place] Address [address] [place] [address] Care Team Providers Care Superintendent Factory Name Role Phone Karen Peña MD Primary Care P rovider [facility] Unavailable [phone] Encounters Date Type Department Care Team Description 03/14/[address] [facility] Maternal Medicine Center [place] [address] [facility] [address] [place] [address] [place] GC Results (Friedreich Ataxia results) from Last 3 Months Allergies No known [...] on 04/11/2021 cyclobenzaprine (FLEXERIL) 10 MG tabletIndications:Ac [place] right-sided low back pain without sciatica Take [...] Comments Blood Pressure 124/76 04/11/2021 2:28 PM PERFUME MAKER Pulse 78 04/11/2021 2:28 PM PERFUME MAKER Temperature 36.9 ??C (98.5 ??F) 04/11/2021 2:28 PM CS T Respiratory Rate 16 04/11/2021 2:28 PM PERFUME MAKER Oxygen Saturation 99% 04/11/2021 2:28 PM PERFUME MAKER Inhaled Oxygen Concentration - - Weight 88.9 kg (196 lb) 04/11/2021 2:28 PM PERFUME MAKER Height 162.6 cm (5' 4) 04/11/2021 2:28 PM PERFUME MAKER Body Mass Index 33.64 04/11/2021 2:28 PM PERFUME MAKER Plan of Treatment Not on file Procedures [...] order below) (10/17/2018 5:50 PM CDT) PAP ARNAV Reyna Report Patient Name: TATA CORTÉS MR#: [id number] Specimen #: [id number] Collected: 10/17/2018 Received: 10/22/2018 Reported: 10/23/2018 13:53 [...] adenocarcinomas or other cancers. COLLECTION SITE: Client: ??[facility] Location: [facility]) The technical component of this testing was completed at the [facility], with the professional component performed at the [facility], [address] [place] [phone] ([phone]) COPATH Cytologic material (specimen) 10/17/2018 5:50 PM CDT 10/22/2018 7:35 AM CDT Karen Peña MD LAB - O PTIME CLINICAL SPECIMEN COPATH * (ABNORMAL) HPV High Risk Types DNA Cervical (10/17/2018 5:30 PM CDT) HPV Source SurePath 10/24/2018 8:05 AM CDT [facility] HPV 16 DNA Negative NEG^Nega tive 10/24/2018 2:44 PM CDT [facility] HPV 18 DNA Negative NEG^Nega tive 10/24/2018 2:44 PM CDT [facility] Other HR HPV Positive(A) NEG^Nega tive 10/24/2018 2:44 PM CDT [facility] Final Diagnosis This patient's sample is positive for other HR HPV DNA (types 31, 33, 35, 39, 45, 51, 52, 56, 58, 59, 66 or 68), not HPV 16 or HPV 18 DNA. This result requires clinical correlation with concurrent cytology findings. 10/24/2018 2:44 PM CDT [facility] Comment: This test was developed and its performance characteristics determined by the [facility], Molecular Diagnostics Laboratory. It has not [...] Description Cervical Cells 10/24/2018 8:05 AM CDT [facility] Comment:[id number] 10/17/2018 5:30 PM CDT 10/17/2018 6:10 PM CDT Karen ePña MD LAB - B LOOD ORDERABLES [facility] [address] [place] [address] from Last 3 Months or Most Recently Relevant to Health Maintenance Care Teams Superintendent Factory Relationship Specialty Start Date End Date Karen Peña MD [address] [place], [place] [address] PCP - General Internal Medicine 09/16/18 Benita Gonsales NP [facility] [address] [place], [place] [address] Nurse Practitioner Nurse Practitioner Psych/Mental Health 09/17/18
--- OUTSIDE RECORDS SUMMARY | 2023-05-30 16:29 | XMS_ITS | Encounter Summary ---
Author Name Unknown Organization [place] Address [address] [place] [address] Care Team Providers Care Creative Services Writer Name Role Phone Karen Peña MD [facility] ACCESS DATABASE DEVELOPER Unavailable [phone] Reason for Referral * Diagnostic Imaging Ultrasound (Routine) - Pending Review Specialty Diagnoses / Procedures Referred By Contac t Referred To Contact Radiology. Diagnoses Encounter for follow-up ultrasound of anatomy Procedures [facility] US Comprehensive Single F/U Kimberly Theodore MD [address] [place] [address] Referral ID Status Reason Start Date Expiration Date V isits Requested Visits Authorized [id number] Pending Review 01/29/2023 01/29/2024 1 1 RVISOR ALTERATION WORKROOM Reason for Visit * Diagnostic Imaging Ultrasound (Routine) - Pending Review Specialty Diagnoses / Procedures Referred By Contac t Referred To Contact Radiology. Diagnoses Encounter for follow-up ultrasound of anatomy Procedures [facility] US Comprehensive Single F/U Kimberly Theodore MD [address] [place] [address] Referral ID Status Reason Start Date Expiration Date V isits Requested Visits Authorized [id number] Pending Review 01/29/2023 01/29/2024 1 1 Encounter Details Date Type Department Care Team (Latest Contact Info) Description 02/21/2023 11:45 AM SUPERVISOR ALTERATION WORKROOM - 02/21/2023 11:59 PM SUPERVISOR ALTERATION WORKROOM Hospital Encounter [facility] Maternal Medicine Center [place] [address] [place] [address] Kimberly Theodore MD [address] [place] [address] Avinash Manning MD [address] [place] [address] Encounter for follow-up ultrasound of [...] tablet Take 10 mg by mouth daily cyclobenzaprine (FLEXERIL) 10 MG tabletIndications:Acute right-sided low back pain without sciatica Take 0.5-1 tablets (5-10 mg) by mouth 3 times daily as needed for muscle spasms 20 tablet 04/11/2021 medroxyPROGESTERone (DEPO-PROVERA) 150 MG/ML IM injectionIndications:Dysme norrhea,Depo-Provera contraceptive status Inject 1 mL (150 mg) into the muscle every 3 months 3 mL 3 10/29/2019 documented as of this encounter Plan of Treatment Not on file documented as of this encounter Procedures Procedure Name Priority Date/Time Associated Diagnosis Comments [facility] US COMPREHENSIVE SINGLE F/U Routine 02/21/2023 12:26 PM SUPERVISOR ALTERATION WORKROOM Encounter for follow-up ultrasound of anatomy documented in this encounter Results * MFM US Comprehensive Single F/U (02/21/2023 12:26 PM SUPERVISOR ALTERATION WORKROOM) Anatomical Region Laterality Modality Ultrasound 02/21/2023 11:5 5 AM SUPERVISOR ALTERATION WORKROOM Impressions 02/21/2023 1:28 PM SUPERVISOR ALTERATION WORKROOM IMPRESSION ----- 1. Graf intrauterine at 22w 1d gestational age here for completion of anatomy. 2. The remaining anatomic survey was completed, no anomalies commonly detected by ultrasound were identified within the limits of ultrasound. 3. Growth parameters and estimated weight were consistent with established dates. EFW 90%. 4. The amniotic fluid volume appeared normal. Narrative 02/21/2023 1:28 PM SUPERVISOR ALTERATION WORKROOM ?Comp Follow Up ----- Pat. Name: TATA AKHTAR ? Study Date: ??02/21/2023 11:55am Pat. NO: ??[id number] ?Referring ??: DENISE ALLRED Site: ??[facility] ? Metals Analyst: Lyudmila Segundo RDMS : ??1990 ?Age: ?? [...] 1 lb 4 ?oz EFW by ?Hadlock ([id number]) Head / Face / Neck Biometry: Software Engineer Mobile ? 8.1 ? mm CM ?6.6 ? mm ANATOMY ----- The following structures appear normal: Head / Neck ? Cranium. Head size. Head shape. Lateral ventricles. Midline falx. Cavum septi pellucidi. Cerebellum. Cisterna magna. Thalami. Face ? Lips. Profile. Nose. Heart / Thorax ?4-chamber view. RVOT view. LVOT view. 3-vessel view. 4-hrdlap-vktycey view. ? Diaphragm. Abdomen ? Cord insertion. [...] clinically indicated with her primary team in [place]. Return to primary provider for continued care. If you have questions regarding today's evaluation or if we can be of further service, please contact the Maternal- Medicine Center. anomalies may be present but not detected Procedure Note Avinash Manning MD - 02/21/2023 Comp Follow Up ----- Pat. Name: TATA AKHTAR Study Date: 02/21/2023 11:55am Pat. NO: [id number] Referring MD: DENISE ALLRED Site: [facility] [employer] Analyst: Lyudmila Segundo RDMS : 1990 Age: 32 [...] 1 lb 4 oz EFW by Hadlock ([id number]) Head / Face / Neck Biometry: Software Engineer Mobile 8.1 mm CM 6.6 mm ANATOMY ----- The following structures appear normal: Head / Neck Cranium. Head size. Head shape.Lateral ventricles. Midline falx. Cavum septi pellucidi. Cerebellum.Cisterna magna. Thalami. Face Lips. Profile. Nose. Heart / Thorax 4-chamber view. RVOT view. LVOT view.3-vessel view. 7-hmukcg-tpiuxmd view. Diaphragm. Abdomen Cord insertion. Stomach. Kidneys.Bladder. [...] as clinically indicated with her primary teamin [place]. Return to primary provider for continued care. [...] volume appeared normal. Kimberly Theodore MD IMG [facility] US ORDERABLE S documented in this encounter Visit Diagnoses Diagnosis Encounter for follow-up ultrasound of anatomy documented in this encounter Additional Health Concerns Assessment Noted Time PHQ-9 Depression Total Score: 14 020 4:15 PM CDT documented as of this encounter Care Teams Creative Services Writer Relationship Specialty Start Date End Date Karen Peña MD [address] [place], [place] [address] PCP - General Internal Medicine 09/16/18 Benita Gonsales NP [facility] [address] [place], [place] [address] Nurse Practitioner Nurse Practitioner Psych/Mental Health 09/17/18 documented as of this encounter
--- OUTSIDE RECORDS SUMMARY | 2023-05-30 16:30 | XMS_ITS | Encounter Summary ---
Author Name Unknown Organization [place] Address [facility] [place] [address] Care Team Providers Care Web Production Artist Name Role Phone Karen Peña MD Primary Care P rovider [facility] Charlotte[facility] NITRATOR OPERATOR Unavailable [phone] Reason for Referral * Consultation (Routine: Next available opening) - Pending Review Specialty Diagnoses / Procedures Referred By Jose L reeves Referred To Contact Diagnoses Family history of carrier of genetic disease Kimberly Theodore MD [address] [place] [address] Referral ID Status Reason Start Date Expiration Date V isits Requested Visits Authorized [id number] Pending Review 02/20/2023 02/20/2024 1 1 Scheduling Instructions Gc after at on 02/21 MATIC MACHINE OPERATOR Encounter Details Date Type Department Care Team (Late st Contact Info) Description 02/20/2023 Orders Only [facility] M[facility] Medicine [facility] [place] [address] [facility] [address] [place] [address] [place] [address] [place] [address] Family history of carrier of [...] documented as of this encounter Care Teams Web Production Artist Relationship Specialty Start Date End Date Karen Peña MD [address] [place] [address] PCP - General Internal Medicine 09/16/[address] [facility] [address] [place] [address] Nurse Practitioner Nurse Practitioner Psych/Mental Health 09/17/18 documented as of this encounter
--- OUTSIDE RECORDS SUMMARY | 2023-05-30 16:30 | XMS_ITS | Encounter Summary ---
Author Name Unknown Organization [place] Address [address] [place] [address] Care Team Providers Care Blender Name Role Phone [facility] Primary Care Provide r None Primary Care Provider Unavailabl e No Ref-Primary, Physician Primary Care Provider Yolanda Chowdary APRN FUR SCRAPER Primary Care Provi renetta Unavailable Yolanda Chowdary APRN FUR SCRAPER Unavailable Un available Yolanda Chowdary APRN, CNP Unavailable Un available Karen Peña MD Unavailable Karen Peña MD Primary Care P rovider [facility], Benita L TRIM STENCIL MAKER Unavailable [phone] Yolanda Chowdary APRN FUR SCRAPER Unavailable Un available [facility], Benita L TRIM STENCIL MAKER Unavailable [phone] Karen Peña MD Unavailable Yolanda Chowdary APRN FUR SCRAPER Unavailable Un available Karen Peña MD Unavailable Yolanda Chowdary APRN FUR SCRAPER Unavailable Un available Yolanda Chowdary APRN, CNP Unavailable Un available Reason for Visit * Reason Onset Date Comments Panel Management 09/29/2014 pap due Encounter Details Date Type Department Care Team (Late st Contact Info) Description 09/29/2014 Telephone [facility] [address] [place] [address], [address] [place] [address] [place] [address] [place] [address] Panel Management (pap due) Social History Tobacco Use Types Packs/Day Years Used Date Smoking Tobacco: Former Cigarettes Alcohol Use Standard Drinks/Week Comments Yes 0 [...] Review Date of last visit with a [place] provider: Juan Miguel Wallace on 06/02/14. Date of next visit with a [place] provider: None. Problem List There is no [...] cervix documented in this encounter Care Teams Blender Relationship Specialty Start Date End Date [facility] [place] [address] [place], [place] [id number] PCP - General 04/16/14 06/20/16 None PCP - General 06/21/16 10/19/16 No Ref-Primary, Physician PCP - General 04/03/17 07/30/17 Yolanda Chowdary APRN FUR SCRAPER PCP - General Nurse Practitioner - Adult Health 07/31/17 09/15/18 Yolanda Chowdary APRN FUR SCRAPER PCP - Assigned PCP 08/05/17 04/23/18 Karen Peña MD [address] [place], [place] [address] PCP - General Internal Medicine 09/16/18 Yolanda Chowdary APRN FUR SCRAPER Assigned PCP 08/05/17 08/03/18 Karen Peña MD [address] [place], [place] [id number] Assigned PCP 08/04/18 11/01/19 Benita Gonsales NP [facility] [address] [place], [place] [address] Nurse Practitioner Nurse Practitioner Psych/Mental Health 09/17/18 Yolanda Chowdary APRN FUR SCRAPER Assigned PCP 11/02/19 10/30/20 Benita Gonsales TRIM STENCIL MAKER [facility] [address] [place] [address] Assigned Behavioral Health Provider 12/12/19 03/20/20 Karen Peña MD [address] [place] [address] Assigned PCP 10/31/20 02/26/21 Yolanda Chowdary APRN FUR SCRAPER Assigned PCP 02/27/21 04/30/21 Karen Peña MD [address] [place] [address] Assigned PCP 05/01/21 10/21/21 Yolanda Chowdary APRN FUR SCRAPER Assigned PCP 10/22/21 02/03/22 Yolanda Chowdary APRN FUR SCRAPER Assigned PCP 04/15/22 04/21/22 documented as of this encounter
--- OUTSIDE RECORDS SUMMARY | 2023-05-30 16:30 | XMS_ITS | Encounter Summary ---
Author Name Unknown Organization [place] Address [address] [place] [address] Care Team Providers Care Director Immunology Name Role Phone Karen Peña MD Unavailable Karen Peña MD Primary Care P rovider [place], Benita L PRECISION LENS GENERATOR Unavailable [phone] Yolanda Chowdary APRN LEAD TECHNICAL WRITER Unavailable Un available [facility], Benita L PRECISION LENS GENERATOR Unavailable [phone] Karen Peña MD Unavailable Yolanda Chowdary APRN LEAD TECHNICAL WRITER Unavailable Un available Karen Peña MD Unavailable Yolanda Chowdary APRN LEAD TECHNICAL WRITER Unavailable Un available Yolanda Chowdary APRN LEAD TECHNICAL WRITER Unavailable Un available Encounter Details Date Type Department Care Team (Latest Contact Info) Description 10/29/2019 Historic Results Social History Tobacco Use Types Packs/Day Years Used Date Smoking Tobacco: Every Day Cigarettes Smokeless Tobacco: Never Alcohol Use Standard [...] documented as of this encounter Care Teams Director Immunology Relationship Specialty Start Date End Date Karen Peña MD [address] [place] [address] PCP - General Internal Medicine 09/16/18 Karen Peña MD [address] [place], [place] [address] Assigned PCP 08/04/18 11/01/19 Benita Gonsales NP [facility] [address] [place], [place] [address] Nurse Practitioner Nurse Practitioner Psych/Mental Health 09/17/18 Yolanda Chowdary APRN LEAD TECHNICAL WRITER Assigned PCP 11/02/19 10/30/20 Benita Gonsales NP [facility] [address] [place] [address] Assigned Behavioral Health Provider 12/12/19 03/20/20 Karen Peña MD [address] [place] [address] Assigned PCP 10/31/20 02/26/21 Yolanda Chowdary APRN LEAD TECHNICAL WRITER Assigned PCP 02/27/21 04/30/21 Karen Peña MD [address] [place], [place] [address] Assigned PCP 05/01/21 10/21/21 Yolanda Chowdary APRN LEAD TECHNICAL WRITER Assigned PCP 10/22/21 02/03/22 Yolanda Chowdary APRN LEAD TECHNICAL WRITER Assigned PCP 04/15/22 04/21/22 documented as of this encounter
--- OUTSIDE RECORDS SUMMARY | 2023-05-30 16:30 | XMS_ITS | Encounter Summary ---
Author Name Unknown Organization [place] Address [address] [place] [address] Care Team Providers Care Biometrics Experimentalist Name Role Phone Karen Peña MD Primary Care P rovider [facility], Benita Hernandez WILDLIFE TECHNICIAN Unavailable [phone] Yolanda Chowdary APRN INSTRUCTIONAL SUPERVISOR Unavailable Un available [facility], Benita Hernandez WILDLIFE TECHNICIAN Unavailable [phone] Karen Peña MD Unavailable Yolanda Chowdary APRN INSTRUCTIONAL SUPERVISOR Unavailable Un available Karen Peña MD Unavailable Yolanda Chowdary APRN INSTRUCTIONAL SUPERVISOR Unavailable Un available Yolanda Chowdary APRN INSTRUCTIONAL SUPERVISOR Unavailable Un available Encounter Details Date Type Department Care Team (Late st Contact Info) Description 03/10/2020 My[facility] Medical Advice [address] [place] [address] Cherelle Romero RN Social History Tobacco Use Types Packs/Day [...] documented as of this encounter Care Teams Biometrics Experimentalist Relationship Specialty Start Date End Date Karen Peña MD [address] [place] [address] PCP - General Internal Medicine 09/16/18 Benita Gonsales NP [facility] [address] [place] [address] Nurse Practitioner Nurse Practitioner Psych/Mental Health 09/17/18 Yolanda Chowdary APRN INSTRUCTIONAL SUPERVISOR Assigned PCP 11/02/19 10/30/20 Benita Gonsales NP [facility] [address] [place] [address] Assigned Behavioral Health Provider 12/12/19 03/20/20 Karen Peña MD [address] [place] [address] Assigned PCP 10/31/20 02/26/21 Yolanda Chowdary APRN INSTRUCTIONAL SUPERVISOR Assigned PCP 02/27/21 04/30/21 Karen Peña MD [address] [place] [address] Assigned PCP 05/01/21 10/21/21 Yolanda Chowdary APRN INSTRUCTIONAL SUPERVISOR Assigned PCP 10/22/21 02/03/22 Yolanda Chowdary APRN INSTRUCTIONAL SUPERVISOR Assigned PCP 04/15/22 04/21/22 documented as of this encounter
[2023-05-31 13:49] LABS: Strep B DNA Probe Negative (Negative)
[2023-05-31 13:52] LABS: Strep B Susceptibility Needed? No
== END 2023-05-30 14:46 | disposition home or self-care (01) ==
LOC: NFLDREF 16:28
PROVIDERS: Visit Provider Obstetrics & Gynecology
DX: Z34.93 Encounter for supervision of normal pregnancy, unspecified, third trimester (principal)
CPT/HCPCS: 87081; 87653

== ENCOUNTER 2023-06-06 12:53 | Outpatient (CLI) | payer MEDICAID, SELFPAY ==
--- OUTSIDE RECORDS SUMMARY | 2023-06-06 12:55 | XMS_ITS | Clinical Summary ---
Author Name Unknown Organization [place] Address [address] [place] [address] Care Team Providers Care Wood Polisher Name Role Phone Karen Peña MD [facility]ider [facility] NP Unavailable [phone] Allergies No known active allergies Medications [...] on 04/11/2021 cyclobenzaprine (FLEXERIL) 10 MG tabletIndications:Ac [place] right-sided low back pain without sciatica Take [...] Type Department Care Team Description 03/14/2023 Telephone [facility] Maternal Medicine Center [place] [address] [facility] [address] [place] [address] [place], GC Results (Friedreich [...] Comments Blood Pressure 124/76 04/11/2021 2:28 PM WIRE FENCE ERECTOR Pulse 78 04/11/2021 2:28 PM WIRE FENCE ERECTOR Temperature 36.9 ??C (98.5 ??F) 04/11/2021 2:28 PM CS T Respiratory Rate 16 04/11/2021 2:28 PM WIRE FENCE ERECTOR Oxygen Saturation 99% 04/11/2021 2:28 PM WIRE FENCE ERECTOR Inhaled Oxygen Concentration - - Weight 88.9 kg (196 lb) 04/11/2021 2:28 PM WIRE FENCE ERECTOR Height 162.6 cm (5' 4) 04/11/2021 2:28 PM WIRE FENCE ERECTOR Body Mass Index 33.64 04/11/2021 2:28 PM WIRE FENCE ERECTOR Plan of Treatment Health Maintenance Due Date [...] Copath Report Patient Name: TATA CORTÉS MR#: [id number] Specimen #: [id number] Collected: 10/17/2018 Received: 10/22/2018 Reported: 10/23/2018 13:53 [...] adenocarcinomas or other cancers. COLLECTION SITE: Client: ??[facility] Location: [place] [facility]) The technical component of this testing [facility], with the professional component performed at the [facility], [address] [place] [phone] ([phone]) COPATH Cytologic material (specimen) 10/17/2018 5:50 PM CDT 10/22/2018 7:35 AM CDT Karen Peña MD LAB - O PTIME CLINICAL SPECIMEN COPATH * (ABNORMAL) HPV High Risk Types DNA Cervical (10/17/2018 5:30 PM CDT) HPV Source SurePath 10/24/2018 8:05 AM CDT [facility] HPV 16 DNA Negative NEG^Nega tive 10/24/2018 2:44 PM CDT [facility] HPV 18 DNA Negative NEG^Nega tive 10/24/2018 2:44 PM CDT [facility] Other HR HPV Positive(A) NEG^Nega tive 10/24/2018 2:44 PM CDT [facility] Final Diagnosis This patient's sample is positive for other HR HPV DNA (types 31, 33, 35, 39, 45, 51, 52, 56, 58, 59, 66 or 68), not HPV 16 or HPV 18 DNA. This result requires clinical correlation with concurrent cytology findings. 10/24/2018 2:44 PM CDT [facility] Comment: This test was developed and its performance characteristics determined by the [facility], Molecular Diagnostics Laboratory. It has not been [...] Description Cervical Cells 10/24/2018 8:05 AM CDT [facility] Comment:[id number] 10/17/2018 5:30 PM CDT 10/17/2018 6:10 PM CDT Karen Peña MD LAB - B LOOD ORDERABLES [facility] [address] [place] [address] from Last 3 Months or Most Recently Relevant to Health Maintenance Care Teams Wood Polisher Relationship Specialty Start Date End Date Karen Peña MD [address] [place] [address] PCP - General Internal Medicine 09/16/18 Benita Gonsales NP [facility] [address] [place], [place] [address] Nurse Practitioner Nurse Practitioner Psych/Mental Health 09/17/18
--- OUTSIDE RECORDS SUMMARY | 2023-06-06 12:55 | XMS_ITS | Referral Summary ---
Author Name Unknown Organization [place] Address [address] [place] [address] Care Team Providers Care Crm Dynamics Developer Name Role Phone Karen Peña MD Primary Care [facility]ider [facility] Unavailable [phone] Encounters Date Type Department Care Team Description 03/14/2023 Telephone [facility] M[facility] Medicine [facility] [place] [address] [facility] [address] [place] [address] Shari Park GC Results (Friedreich Ataxia results) from [...] on 04/11/2021 cyclobenzaprine (FLEXERIL) 10 MG tabletIndications:Ac gulkana right-sided low back pain without sciatica Take [...] Comments Blood Pressure 124/76 04/11/2021 2:28 PM EMBEDDED HARDWARE ENGINEER Pulse 78 04/11/2021 2:28 PM EMBEDDED HARDWARE ENGINEER Temperature 36.9 ??C (98.5 ??F) 04/11/2021 2:28 PM CS T Respiratory Rate 16 04/11/2021 2:28 PM EMBEDDED HARDWARE ENGINEER Oxygen Saturation 99% 04/11/2021 2:28 PM EMBEDDED HARDWARE ENGINEER Inhaled Oxygen Concentration - - Weight 88.9 kg (196 lb) 04/11/2021 2:28 PM EMBEDDED HARDWARE ENGINEER Height 162.6 cm (5' 4) 04/11/2021 2:28 PM EMBEDDED HARDWARE ENGINEER Body Mass Index 33.64 04/11/2021 2:28 PM EMBEDDED HARDWARE ENGINEER Plan of Treatment Not on file Procedures [...] Reyna Report Patient Name: TATA CORTÉS MR#: [id number] Specimen #: [id number] Collected: 10/17/2018 Received: 10/22/2018 Reported: 10/23/2018 13:53 [...] adenocarcinomas or other cancers. COLLECTION SITE: Client: ??[facility] Location: [facility]) The technical component of this testing was completed at the [facility], with the professional component performed at the [facility], [address] [place] [id number] ([phone]) COPATH Cytologic material (specimen) 10/17/2018 5:50 PM CDT 10/22/2018 7:35 AM CDT Karen Peña MD LAB - O PTIME CLINICAL SPECIMEN COPATH * (ABNORMAL) HPV High Risk Types DNA Cervical (10/17/2018 5:30 PM CDT) HPV Source [facility] 10/24/2018 8:05 AM CDT [facility] HPV 16 DNA Negative NEG^Nega tive 10/24/2018 2:44 PM CDT [facility] HPV 18 DNA Negative NEG^Nega tive 10/24/2018 2:44 PM CDT [facility] Other HR HPV Positive(A) NEG^Nega tive 10/24/2018 2:44 PM CDT [facility] Final Diagnosis This patient's sample is positive for other HR HPV DNA (types 31, 33, 35, 39, 45, 51, 52, 56, 58, 59, 66 or 68), not HPV 16 or HPV 18 DNA. This result requires clinical correlation with concurrent cytology findings. 10/24/2018 2:44 PM CDT [facility] Comment: This test was developed and its performance characteristics determined by the [facility], Molecular Diagnostics Laboratory. It has not [...] Description Cervical Cells 10/24/2018 8:05 AM CDT [facility] Comment:[id number] 10/17/2018 5:30 PM CDT 10/17/2018 6:10 PM CDT Karen Peña MD LAB - B LOOD ORDERABLES [facility] [address] [place] [address] from Last 3 Months or Most Recently Relevant to Health Maintenance Care Teams Crm Dynamics Developer Relationship Specialty Start Date End Date Karen Peña MD [address] [place], [place] [address] PCP - General Internal Medicine 09/16/18 Benita Gonsales NP [facility] [address] [place], [place] [address] Nurse Practitioner Nurse Practitioner Psych/Mental Health 09/17/18
--- OUTSIDE RECORDS SUMMARY | 2023-06-06 12:55 | XMS_ITS | Encounter Summary ---
Author Name Unknown Organization [place] Address [address] [place] [address] Care Team Providers Care Title Insurance Sales Representative Name Role Phone [facility], [facility] Primary Care Provide r None Primary Care Provider Unavailabl e No Ref-Primary, Physician Primary Care Provider Yolanda Chowdary APRN CATH LAB NURSE Primary Care Provi renetta Unavailable Yolanda Chowdary APRN CATH LAB NURSE Unavailable Un available Yolanda Chowdary APRN, CNP Unavailable Un available Karen Peña MD Unavailable Karen Peña MD Primary Care P rovider [facility], [facility], Benita L LEGAL CASHIER Unavailable [phone] Yolanda Chowdary APRN CATH LAB NURSE Unavailable Un available [facility], Benita L LEGAL CASHIER Unavailable [phone] Karen Peña MD Unavailable Yolanda Chowdary APRN CATH LAB NURSE Unavailable Un available Karen Peña MD Unavailable Yolanda Chowdary APRN CATH LAB NURSE Unavailable Un available Yolanda Chowdary APRN, CNP Unavailable Un available Reason for Visit * Reason Onset Date Comments Panel Management 09/29/2014 pap due Encounter Details Date Type Department Care Team (Late st Contact Info) Description 09/29/2014 Telephone [facility] [address] [place] [address], [address] [place] [address] [place] [address] [place] [address] Panel Management (pap due) Social History Tobacco [...] Review Date of last visit with a [place] provider: Juan Miguel Wallace on 06/02/14. Date of next visit with a [place] provider: None. Problem List There is no [...] cervix documented in this encounter Care Teams Title Insurance Sales Representative Relationship Specialty Start Date End Date [facility], [facility] [address] [place], [place] [id number] PCP - General 04/16/14 06/20/16 None PCP - General 06/21/16 10/19/16 No Ref-Primary, Physician PCP - General 04/03/17 07/30/17 Yolanda Chowdary APRN CATH LAB NURSE PCP - General Nurse Practitioner - Adult Health 07/31/17 09/15/18 Yolanda Chowdary APRN CATH LAB NURSE PCP - Assigned PCP 08/05/17 04/23/18 Karne Peña MD [address] [place], [place] [address] PCP - General Internal Medicine 09/16/18 Yolanda Chowdary APRN CATH LAB NURSE Assigned PCP 08/05/17 08/03/18 Karen Peña MD [address] [place], [place] [address] Assigned PCP 08/04/18 11/01/19 Benita Gonsales NP [facility] [address] [place], [place] [id number] Nurse Practitioner Nurse Practitioner Psych/Mental Health 09/17/18 Yolanda Chowdary APRN CATH LAB NURSE Assigned PCP 11/02/19 10/30/20 Benita Gonsales, LEGAL CASHIER [address] [place] [address] Assigned Behavioral Health Provider 12/12/19 03/20/20 Karen Peña MD [address] [place] [address] Assigned PCP 10/31/20 02/26/21 Yolanda Chowdary APRN CATH LAB NURSE Assigned PCP 02/27/21 04/30/21 Karen Peña MD [address] [place] [address] Assigned PCP 05/01/21 10/21/21 Yolanda Chowdary APRN CATH LAB NURSE Assigned PCP 10/22/21 02/03/22 Yolanda Chowdary APRN CATH LAB NURSE Assigned PCP 04/15/22 04/21/22 documented as of this encounter
--- OUTSIDE RECORDS SUMMARY | 2023-06-06 12:55 | XMS_ITS | Encounter Summary ---
Author Name Unknown Organization [place] Address [address] [facility] [place] [address] Care Team Providers Care Top Executive Name Role Phone Karen Peña MD Primary [facility] P rovider [facility] DIGITAL CIRCUIT DESIGNER Unavailable [phone] Reason for Visit * Reason Onset Date Comments Results 03/14/2023 Friedreich Ataxi a results Encounter Details Date Type Department Care Team ([facility] Contact Info) Description 03/14/2023 Telephone [facility] Maternal Medicine Center [place] [address] [facility] [address] [place] [address] Shari Park GC [address] [address] [place] [address] Results (Friedreich Ataxia results) Social [...] Shari Park GC - 03/14/2023 12:53 PM OFFICE EQUIPMENT TECHNICIAN March 14, 2023 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 She had this testing done as carrier screening for her current due to her sister having children affected with this condition. 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 Trinucleotide repeats in the range of 5-33 are considered in the normal range. Autosomal recessive repeats [id number] are associated with full penetrance of Friedreich Ataxia. We discussed that this analysis does not rule out rare point mutations. There was not a review of Tata's nieces and nephew's genetic test results to confirm that it was due to trinucleotide repeat expansion, but this is the most common inheritance. Shari Park MS, [facility] Licensed Genetic Counselor [facility] Pager: [phone] Office: [phone] CE EQUIPMENT TECHNICIAN documented in this encounter Plan of Treatment Not on file documented as of this encounter Visit Diagnoses Not on filedocumented in this encounter Additional Health Concerns Assessment Noted Time PHQ-9 Depression Total Score: 14 020 4:15 PM CDT documented as of this encounter Care Teams Top Executive Relationship Specialty Start Date End Date Karen Peña MD [address] [place] [address] PCP - General Internal Medicine 09/16/18 Benita Gonsales NP [facility] [address] [place] [address] Nurse Practitioner Nurse Practitioner Psych/Mental Health 09/17/18 documented as of this encounter
--- OUTSIDE RECORDS SUMMARY | 2023-06-06 12:55 | XMS_ITS | Encounter Summary ---
Author Name Unknown Organization [place] Address [address] [place] [address] Care Team Providers Care Forklift Technician Name Role Phone Karen Peña MD Unavailable Karen Peña MD Primary Care P rovider [place], Benita L SPRING UP SUPERVISOR Unavailable [phone] Yolanda Chowdary APRN SALES REPRESENTATIVE TRAINEE Unavailable Un available [facility], Benita L SPRING UP SUPERVISOR Unavailable Karen Peña MD Unavailable Yolanda Chowdary APRN SALES REPRESENTATIVE TRAINEE Unavailable Un available Karen Peña MD Unavailable Yolanda Chowdary APRN SALES REPRESENTATIVE TRAINEE Unavailable Un available Yolanda Chowdary APRN SALES REPRESENTATIVE TRAINEE Unavailable Un available Encounter Details Date Type [...] documented as of this encounter Care Teams Forklift Technician Relationship Specialty Start Date End Date Karen Peña MD [address] [place] [address] PCP - General Internal Medicine 09/16/18 Karen Peña MD [address] [place] [address] Assigned PCP 08/04/18 11/01/19 Benita Gonsales NP [facility] [address] [place], [place] [address] Nurse Practitioner Nurse Practitioner Psych/Mental Health 09/17/18 Yolanda Chowdary APRN SALES REPRESENTATIVE TRAINEE Assigned PCP 11/02/19 10/30/20 Benita [place] [address] [place] [address] Assigned Behavioral Health Provider 12/12/19 03/20/20 Karen Peña MD [address] [place] [address] Assigned PCP 10/31/20 02/26/21 Yolanda Chowdary APRN SALES REPRESENTATIVE TRAINEE Assigned PCP 02/27/21 04/30/21 Karen Peña MD [address] [place] [address] Assigned PCP 05/01/21 10/21/21 Yolanda Chowdary APRN SALES REPRESENTATIVE TRAINEE Assigned PCP 10/22/21 02/03/22 Yolanda Chowdary APRN SALES REPRESENTATIVE TRAINEE Assigned PCP 04/15/22 04/21/22 documented as of this encounter
--- OUTSIDE RECORDS SUMMARY | 2023-06-06 12:55 | XMS_ITS | Encounter Summary ---
Author Name Unknown Organization [place] Address [address] [place] [address] Care Team Providers Care Blueprint Machine Operator Name Role Phone Karen Peña MD Primary Care P rovider [facility], Benita Hernandez TREASURY DIRECTOR Unavailable [phone] Yolanda Chowdary APRN FURNACE BUILDER Unavailable Un available [facility], Benita Hernandez TREASURY DIRECTOR Unavailable [phone] Karen Peña MD Unavailable Yolanda Chowdary APRN FURNACE BUILDER Unavailable Un available Karen Peña MD Unavailable Yolanda Chowdary APRN FURNACE BUILDER Unavailable Un available Yolanda Chowdary APRN FURNACE BUILDER Unavailable Un available Encounter Details Date Type Department Care Team (Late st Contact Info) Description 03/10/2020 [facility] Medical Advice [address] [place] [address] Cherelle Romero RN Social History [...] documented as of this encounter Care Teams Blueprint Machine Operator Relationship Specialty Start Date End Date Karen Peña MD [address] [place] [address] PCP - General Internal Medicine 09/16/18 Benita Gonsales, TREASURY DIRECTOR [facility] [address] [place] [address] Nurse Practitioner Nurse Practitioner Psych/Mental Health 09/17/18 Yolanda Chowdary APRN FURNACE BUILDER Assigned PCP 11/02/19 10/30/20 [place] [address] [place] [address] Assigned Behavioral Health Provider 12/12/19 03/20/20 Karen Peña MD [address] [place] [address] Assigned PCP 10/31/20 02/26/21 Yolanda Chowdary APRN FURNACE BUILDER Assigned PCP 02/27/21 04/30/21 Karen Peña MD [address] [place] [address] Assigned PCP 05/01/21 10/21/21 Yolanda Chowdary APRN FURNACE BUILDER Assigned PCP 10/22/21 02/03/22 Yolanda Chowdary APRN FURNACE BUILDER Assigned PCP 04/15/22 04/21/22 documented as of this encounter
--- NOTE | 2023-06-06 13:00 | US_ITS ---
Patient: NAMAN RUGGIERO Facility:?[facility] RIS Patient ID:?[id number] Site Patient ID:?[id number]. Site :?[id number] Study:?US-OB Pelvis OB BPP & F/U GROWTH-06/06/2023 1:53:43 PM Ordering Physician:?GENOVEVA JACOBO M.D. Final Report: INDICATION: High BMI TECHNIQUE: Real time seay scale imaging of the fetus was performed. COMPARISON: 11/22/2022 FINDINGS: Sonographic imaging demonstrates a single living intrauterine gestation. Fetus demonstrates a regular cardiac rate of 123 beats per minute. Fetus has a vertex position. The placenta lies anteriorly. Amniotic fluid volume appears normal and there is a single deepest pocket of 5.1 cm. The estimated weight is 3435gm which lies at the 83rd %. BPD greater than 97th percentile. HC 86th percentile. AC 90th percentile. FL 36th percentile. The fetus was active and demonstrated normal breathing movements. There was normal flexion and extension of the trunk and extremities. IMPRESSION: Normal biophysical profile score 8/8. Sonographic gestational age 38 weeks 4 days and sonographic due date 06/16/2023. Sonographic age 10 days ahead of the clinical age. Estimated weight 83rd percentile. Abdominal circumference 90th percentile. BPD greater than 97th percentile. Dictated by Sergio Bradley MD @ 06/07/2023 11:30:10 AM Signed by:?Sergio Bradley MD @06/07/2023 11:30:10 AM (Electronic Signature)
== END 2023-06-06 12:54 | disposition home or self-care (01) ==
LOC: US 12:53
PROVIDERS: Visit Provider Obstetrics & Gynecology
DX: O99.210 Obesity complicating pregnancy, unspecified trimester (principal); Z68.37 Body mass index [BMI] 37.0-37.9, adult
CPT/HCPCS: 76816; 76819

== ENCOUNTER 2023-06-13 13:01 | Outpatient (CLI) | payer MEDICAID, SELFPAY ==
--- NOTE | 2023-06-13 13:00 | US_ITS ---
Patient: NAMAN RUGGIERO Facility:?[facility] RIS Patient ID:?[id number] Site Patient ID:?[id number]. Site :?[id number] Study:?US-OB Pelvis BPP-06/13/2023 2:00:21 PM Ordering Physician:Celeste Camacho Final Report: INDICATION: High BMI. COMPARISON: OB ultrasound 06/06/2023. TECHNIQUE: Ultrasound OB pelvis biophysical profile. Real time seay scale imaging of the fetus was performed without non-stress testing. FINDINGS: Sonographic imaging demonstrates a single living intrauterine gestation. The fetus demonstrates a regular cardiac rate of 135 beats per minute. The fetus has a cephalic orientation. The placenta lies anteriorly. Single deepest pocket measures 6.2 cm (2/2). The fetus was active (2/2). There was normal flexion and extension of the trunk and extremities (2/2). The fetus demonstrated normal breathing movements (2/2). IMPRESSION: Normal biophysical profile score 8 out of 8. Dictated by Alix Morin MD @ 06/14/2023 3:11:19 AM Signed by:?Alix Morin MD @06/14/2023 3:11:19 AM (Electronic Signature)
--- OUTSIDE RECORDS SUMMARY | 2023-06-13 13:03 | XMS_ITS | Encounter Summary ---
Author Name Unknown Organization [place] Address [address] [place] [address] Care Team Providers Care Leasing Agent Name Role Phone Karen Peña MD Unavailable Karen Peña MD Primary Care P rovider [place], Benita L BRAND MARKETING SPECIALIST Unavailable [phone] Yolanda Chowdary APRN CREATIVE ART DIRECTOR Unavailable Un available Replaced By [facility], Benita L BRAND MARKETING SPECIALIST Unavailable [phone] Karen Peña MD Unavailable Yolanda Chowdary APRN CREATIVE ART DIRECTOR Unavailable Un available Karen Peña MD Unavailable Yolanda Chowdary APRN CREATIVE ART DIRECTOR Unavailable Un available Yolanda Chowdary APRN CREATIVE ART DIRECTOR Unavailable Un available Encounter Details Date Type [...] documented as of this encounter Care Teams Leasing Agent Relationship Specialty Start Date End Date Karen Peña MD [address] [place] [address] PCP - General Internal Medicine 09/16/18 Karen Peña MD [address] [place] [address] Assigned PCP 08/04/18 11/01/19 Benita Gonsales NP [facility] [address] [place], [place] [address] Nurse Practitioner Nurse Practitioner Psych/Mental Health 09/17/18 Yolanda Chowdary APRN CREATIVE ART DIRECTOR Assigned PCP 11/02/19 10/30/20 Benita [place] [address] [place] [address] Assigned Behavioral Health Provider 12/12/19 03/20/20 Karen Peña MD [address] [place] [address] Assigned PCP 10/31/20 02/26/21 Yolanda Chowdary APRN CREATIVE ART DIRECTOR Assigned PCP 02/27/21 04/30/21 Karen Peña MD [address] [place] [address] Assigned PCP 05/01/21 10/21/21 Yolanda Chowdary APRN CREATIVE ART DIRECTOR Assigned PCP 10/22/21 02/03/22 Yolanda Chowdary APRN CREATIVE ART DIRECTOR Assigned PCP 04/15/22 04/21/22 documented as of this encounter
--- OUTSIDE RECORDS SUMMARY | 2023-06-13 13:03 | XMS_ITS | Referral Summary ---
Author Name Unknown Organization [place] Address [address] [place] [address] Care Team Providers Care Open Hearth Furnace Laborer Name Role Phone Karen Peña MD [facility]ider [facility] Unavailable [phone] Encounters Date Type Department Care Team Description 03/14/2023 Telephone [facility] Maternal Medicine Center [place] [address] [facility] [address] [place] [address] Shari Park GC Results (Friedreich [...] on 04/11/2021 cyclobenzaprine (FLEXERIL) 10 MG tabletIndications:Ac tunica-biloxi right-sided low back pain without sciatica Take [...] Comments Blood Pressure 124/76 04/11/2021 2:28 PM UTILIZATION REVIEWER Pulse 78 04/11/2021 2:28 PM UTILIZATION REVIEWER Temperature 36.9 ??C (98.5 ??F) 04/11/2021 2:28 PM CS T Respiratory Rate 16 04/11/2021 2:28 PM UTILIZATION REVIEWER Oxygen Saturation 99% 04/11/2021 2:28 PM UTILIZATION REVIEWER Inhaled Oxygen Concentration - - Weight 88.9 kg (196 lb) 04/11/2021 2:28 PM UTILIZATION REVIEWER Height 162.6 cm (5' 4) 04/11/2021 2:28 PM UTILIZATION REVIEWER Body Mass Index 33.64 04/11/2021 2:28 PM UTILIZATION REVIEWER Plan of Treatment Not on file Procedures [...] Reyna Report Patient Name: TATA CORTÉS MR#: [id number] Specimen #: [id number] Collected: 10/17/2018 Received: 10/22/2018 Reported: 10/23/2018 13:53 [...] adenocarcinomas or other cancers. COLLECTION SITE: Client: ??[facility] Location: [facility]) The technical component of this testing was completed at the [facility], with the professional component performed at the [facility], [address] [place] [phone] ([phone]) COPATH Cytologic material (specimen) 10/17/2018 5:50 PM [...] and its performance characteristics determined by the [facility], Molecular Diagnostics Laboratory. It has not been [...] AM CDT [facility] Comment:[id number] 10/17/2018 5:30 PM CDT 10/17/2018 6:10 PM CDT Karen Peña MD LAB - B LOOD ORDERABLES [facility] [address] [place] [address] from Last 3 Months or Most Recently Relevant to Health Maintenance Care Teams Open Hearth Furnace Laborer Relationship Specialty Start Date End Date Karen Peña MD [address] [place], [place] [address] PCP - General Internal Medicine 09/16/18 Benita Gonsales NP [facility] [address] [place], [place] [address] Nurse Practitioner Nurse Practitioner Psych/Mental Health 09/17/18
--- OUTSIDE RECORDS SUMMARY | 2023-06-13 13:03 | XMS_ITS | Encounter Summary ---
Author Name Unknown Organization [place] Address [address] [place] [address] Care Team Providers Care Wet Machine Cutter Name Role Phone Karen Peña MD Primary [facility]ider [facility] OPEN DEVELOPER OPERATOR Unavailable [phone] Reason for Visit * Reason Onset Date Comments Results 03/14/2023 Friedreich Ataxi a results Encounter Details Date Type Department Care Team ([facility] Contact Info) Description 03/14/2023 Telephone [facility] Maternal Medicine Center [place] [address] [facility] [address] [place] [address] Shari Park GC 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 She had this testing done as carrier screening for her current due to her sister having children affected with this condition. 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 Trinucleotide repeats in the range of 5-33 are considered in the normal range. Autosomal recessive repeats [id number] are associated with full penetrance of Friedreich Ataxia. We discussed that this analysis does not rule out rare point mutations. There was not a review of Tata's nieces and nephew's genetic test results to confirm that it was due to trinucleotide repeat expansion, but this is the most common inheritance. Shari Park MS, [facility] Licensed Genetic Counselor [facility] Pager: [phone] Office: [phone] PRODUCTION HEATER documented in this encounter Plan of Treatment Not on file documented as of this encounter Visit Diagnoses Not on filedocumented in this encounter Additional Health Concerns Assessment Noted Time PHQ-9 Depression Total Score: 14 020 4:15 PM CDT documented as of this encounter Care Teams Wet Machine Cutter Relationship Specialty Start Date End Date Karen Peña MD [address] [place] [address] PCP - General Internal Medicine 09/16/18 Benita Gonsales NP [facility] [address] [place] [address] Nurse Practitioner Nurse Practitioner Psych/Mental Health 09/17/18 documented as of this encounter
--- OUTSIDE RECORDS SUMMARY | 2023-06-13 13:03 | XMS_ITS | Clinical Summary ---
Author Name Unknown Organization [place] Address [address] [place] [address] Care Team Providers Care Quality Worker Name Role Phone Karen Peña MD [facility] Unavailable [phone] Allergies No known active allergies Medications [...] on 04/11/2021 cyclobenzaprine (FLEXERIL) 10 MG tabletIndications:Ac [place] right-sided low back pain without sciatica Take [...] Type Department Care Team Description 03/14/2023 Telephone [facility] E[place]kine [address] [facility] [address] [place] [address] Shari Park, GC Results (Friedreich [...] Comments Blood Pressure 124/76 04/11/2021 2:28 PM HUNTER GUIDE Pulse 78 04/11/2021 2:28 PM HUNTER GUIDE Temperature 36.9 ??C (98.5 ??F) 04/11/2021 2:28 PM CS T Respiratory Rate 16 04/11/2021 2:28 PM HUNTER GUIDE Oxygen Saturation 99% 04/11/2021 2:28 PM HUNTER GUIDE Inhaled Oxygen Concentration - - Weight 88.9 kg (196 lb) 04/11/2021 2:28 PM HUNTER GUIDE Height 162.6 cm (5' 4) 04/11/2021 2:28 PM HUNTER GUIDE Body Mass Index 33.64 04/11/2021 2:28 PM HUNTER GUIDE Plan of Treatment Health Maintenance Due Date [...] Copath Report Patient Name: TATA CORTÉS MR#: [id number] Specimen #: [id number] Collected: 10/17/2018 Received: 10/22/2018 Reported: 10/23/2018 13:53 [...] adenocarcinomas or other cancers. COLLECTION SITE: Client: ??[facility] Location: [place] ([place]) [facility] with the [facility] [address] [place] [phone] ([phone]) COPATH Cytologic material (specimen) 10/17/2018 5:50 PM CDT 10/22/2018 7:35 AM CDT Karen Peña MD LAB - O PTIME CLINICAL SPECIMEN COPATH * (ABNORMAL) HPV High Risk Types DNA Cervical (10/17/2018 5:30 PM CDT) HPV Source SurePath 10/24/2018 8:05 AM CDT [facility] HPV 16 DNA Negative NEG^Nega tive 10/24/2018 2:44 PM CDT [facility] HPV 18 DNA Negative NEG^Nega tive 10/24/2018 2:44 PM CDT [facility] Other HR HPV Positive(A) NEG^Nega tive 10/24/2018 2:44 PM CDT [facility] Final Diagnosis This patient's sample is positive for other HR HPV DNA (types 31, 33, 35, 39, 45, 51, 52, 56, 58, 59, 66 or 68), not HPV 16 or HPV 18 DNA. This result requires clinical correlation with concurrent cytology findings. 10/24/2018 2:44 PM CDT [facility] Comment: This test was developed [...] Description Cervical Cells 10/24/2018 8:05 AM CDT [facility] Comment:[id number] 10/17/2018 5:30 PM CDT 10/17/2018 6:10 PM CDT Karen Peña MD LAB - B LOOD ORDERABLES [facility] [address] [place] [address] from Last 3 Months or Most Recently Relevant to Health Maintenance Care Teams Quality Worker Relationship Specialty Start Date End Date Karen Peña MD [address] [place] [address] PCP - General Internal Medicine 09/16/18 Benita Gonsales NP CLINICS [address] [place], [place] [address] Nurse Practitioner Nurse Practitioner Psych/Mental Health 09/17/18
--- OUTSIDE RECORDS SUMMARY | 2023-06-13 13:03 | XMS_ITS | Encounter Summary ---
Author Name Unknown Organization [place] Address [address] [place] [address] Care Team Providers Care Diesel Stationary Engineer Name Role Phone [facility], [facility] Primary Care Provide r None Primary Care Provider Unavailabl e No Ref-Primary, Physician Primary Care Provider Yolanda Chowdary APRN FIRE ENGINEER Primary Care Provi renetta Unavailable Yolanda Chowdary APRN FIRE ENGINEER Unavailable Un available Yolanda Chowdary APRN, CNP Unavailable Un available Karen Peña MD Unavailable Karen Peña MD Primary Care P rovider [facility], Benita L CHAIN SALES CONSULTANT Unavailable [phone] Yolanda Chowdary APRN FIRE ENGINEER Unavailable Un available [facility], Benita L CHAIN SALES CONSULTANT Unavailable [phone] Karen Peña MD Unavailable Yolanda Chowdary APRN FIRE ENGINEER Unavailable Un available Karen Peña MD Unavailable Yolanda Chowdary APRN FIRE ENGINEER Unavailable Un available Yolanda Chowdary APRN, CNP Unavailable Un available Reason for Visit * Reason Onset Date Comments Panel Management 09/29/2014 pap due Encounter Details Date Type Department Care Team (Late st Contact Info) Description 09/29/2014 Telephone [facility] [id number] [place] [address], [address] [place] [address] [place] [address] [place] [address] Panel Management (pap due) Social History Tobacco [...] Review Date of last visit with a [facility] provider: Juan Miguel Wallace on 06/02/14. Date of next visit with a [facility] provider: None. Problem List There is no [...] cervix documented in this encounter Care Teams Diesel Stationary Engineer Relationship Specialty Start Date End Date [facility], [facility] [address] [place], [place] [id number] PCP - General 04/16/14 06/20/16 None PCP - General 06/21/16 10/19/16 No Ref-Primary, Physician PCP - General 04/03/17 07/30/17 Yolanda Chowdary APRN FIRE ENGINEER PCP - General Nurse Practitioner - Adult Health 07/31/17 09/15/18 Yolanda Chowdary APRN FIRE ENGINEER PCP - Assigned PCP 08/05/17 04/23/18 Karen Peña MD [address] [place], [place] [address] PCP - General Internal Medicine 09/16/18 Yolanda Chowdary APRN FIRE ENGINEER Assigned PCP 08/05/17 08/03/18 Karen Peña MD [address] [place], [place] [id number] Assigned PCP 08/04/18 11/01/19 Benita Gonsales NP [facility] [address] [place], [place] [id number] Nurse Practitioner Nurse Practitioner Psych/Mental Health 09/17/18 Yolanda Chowdary APRN FIRE ENGINEER Assigned PCP 11/02/19 10/30/20 Benita Gonsales, CHAIN SALES CONSULTANT [address] [place] [address] Assigned Behavioral Health Provider 12/12/19 03/20/20 Karen Peña MD [address] [place] [address] Assigned PCP 10/31/20 02/26/21 Yolanda Chowdary APRN FIRE ENGINEER Assigned PCP 02/27/21 04/30/21 Karen Peña MD [address] [place] [address] Assigned PCP 05/01/21 10/21/21 Yolanda Chowdary APRN FIRE ENGINEER Assigned PCP 10/22/21 02/03/22 Yolanda Chowdary APRN FIRE ENGINEER Assigned PCP 04/15/22 04/21/22 documented as of this encounter
--- OUTSIDE RECORDS SUMMARY | 2023-06-13 13:03 | XMS_ITS | Encounter Summary ---
Author Name Unknown Organization [place] Address [address] [place] [address] Care Team Providers Care Adjunct Mathematics Instructor Name Role Phone Karen Peña MD Primary Care P rovider [facility], Benita Hernandez ELECTRICAL TECHNICIAN Unavailable [phone] Yolanda Chowdary APRN CHAMBER WALKER Unavailable Un available [facility], Benita Hernandez ELECTRICAL TECHNICIAN Unavailable [phone] Karen Peña MD Unavailable Yolanda Chowdary APRN CHAMBER WALKER Unavailable Un available Karen Peña MD Unavailable Yolanda Chowdary APRN CHAMBER WALKER Unavailable Un available Yolanda Chowdary APRN CHAMBER WALKER Unavailable Un available Encounter Details Date Type Department Care Team (Late st Contact Info) Description 03/10/2020 MyC Medical Advice [address] [place] [address] Cherelle Romero RN Social History [...] documented as of this encounter Care Teams Adjunct Mathematics Instructor Relationship Specialty Start Date End Date Karen Peña MD [address] [place] [address] PCP - General Internal Medicine 09/16/18 Benita Gonsales, ELECTRICAL TECHNICIAN [facility] [address] [place] [address] Nurse Practitioner Nurse Practitioner Psych/Mental Health 09/17/18 Yolanda Chowdary APRN CHAMBER WALKER Assigned PCP 11/02/19 10/30/20 [place] [address] [place] [address] Assigned Behavioral Health Provider 12/12/19 03/20/20 Karen Peña MD [address] [place] [address] Assigned PCP 10/31/20 02/26/21 Yolanda Chowdary APRN CHAMBER WALKER Assigned PCP 02/27/21 04/30/21 Karen Peña MD [address] [place] [address] Assigned PCP 05/01/21 10/21/21 Yolanda Chowdary APRN CHAMBER WALKER Assigned PCP 10/22/21 02/03/22 Yolanda Chowdary APRN CHAMBER WALKER Assigned PCP 04/15/22 04/21/22 documented as of this encounter
== END 2023-06-13 13:02 | disposition home or self-care (01) ==
LOC: US 13:01
PROVIDERS: Visit Provider Obstetrics & Gynecology
DX: O99.210 Obesity complicating pregnancy, unspecified trimester (principal); Z68.37 Body mass index [BMI] 37.0-37.9, adult
CPT/HCPCS: 76819

== ENCOUNTER 2023-06-20 13:03 | Outpatient (CLI) | payer MEDICAID, SELFPAY ==
--- NOTE | 2023-06-20 13:00 | US_ITS ---
Patient: NAMAN RUGGIERO Facility:?[facility] Patient ID:?[id number] Site Patient ID:?[id number]. Site :?[id number] Study:?US-OB Pelvis BPP-06/20/2023 1:29:08 PM Ordering Physician:JODY JACOBO Final Report: INDICATION: High BMI TECHNIQUE: Limited transabdominal two-dimensional seay-scale ultrasound examination. COMPARISON: None FINDINGS: There is a living fetus in cephalic lie with gestational age of 39 weeks 1 day and EDC of 06/26/2023. The biophysical profile score is 8/8. The heart rate is measured at 138 beats per minute and the rhythm appears regular. The amniotic fluid volume is within normal limits with single deepest pocket of 6.1 cm. The placenta is anterior and superior to the cervical os. There is no evidence of previa. IMPRESSION: 1. Living fetus in cephalic lie with gestational age of 39 weeks 1 day and EDC of 06/26/2023. 2. Biophysical profile score is 8/8. Dictated by Rogelio Ramey MD @ 06/21/2023 6:46:46 AM Signed by:?Rogelio Ramey MD @06/21/2023 6:46:46 AM (Electronic Signature)
--- OUTSIDE RECORDS SUMMARY | 2023-06-20 13:05 | XMS_ITS | Encounter Summary ---
Author Name Unknown Organization [place] Address [address] [place] [address] Care Team Providers Care Paint Tinter Name Role Phone Karen Peña MD Primary Care P rovider [facility], Benita Hernandez LINE MAINTENANCE Unavailable [phone] Yolanda Chowdary APRN IRRIGATOR Unavailable Un available [facility], Benita Hernandez LINE MAINTENANCE Unavailable [phone] Karen Peña MD Unavailable Yolanda Chowdary APRN IRRIGATOR Unavailable Un available Karen Peña MD Unavailable Yolanda Chowdary APRN IRRIGATOR Unavailable Un available Yolanda Chowdary APRN IRRIGATOR Unavailable Un available Encounter Details Date Type Department Care Team (Late st Contact Info) Description 03/10/2020 MyC Medical Advice [address] [place] [address] Cherelle Romero RN Social History [...] documented as of this encounter Care Teams Paint Tinter Relationship Specialty Start Date End Date Karen Peña MD [address] [place] [address] PCP - General Internal Medicine 09/16/18 Benita Gonsales, LINE MAINTENANCE [facility] [address] [place] [address] Nurse Practitioner Nurse Practitioner Psych/Mental Health 09/17/18 Yolanda Chowdary APRN IRRIGATOR Assigned PCP 11/02/19 10/30/20 [place] [address] [place] [address] Assigned Behavioral Health Provider 12/12/19 03/20/20 Karen Peña MD [address] [place] [address] Assigned PCP 10/31/20 02/26/21 Yolanda Chowdary APRN IRRIGATOR Assigned PCP 02/27/21 04/30/21 Karen Peña MD [address] [place] [address] Assigned PCP 05/01/21 10/21/21 Yolanda Chowdary APRN IRRIGATOR Assigned PCP 10/22/21 02/03/22 Yolanda Chowdary APRN IRRIGATOR Assigned PCP 04/15/22 04/21/22 documented as of this encounter
--- OUTSIDE RECORDS SUMMARY | 2023-06-20 13:05 | XMS_ITS | Encounter Summary ---
Author Name Unknown Organization [place] Address [address] [facility] [place] [address] Care Team Providers Care Metaphysics Teacher Name Role Phone Karen Peña MD Primary [facility] P [facility]vider [facility] [address] REPORTER Unavailable [phone] Reason for Visit * Reason Onset Date Comments Results 03/14/2023 Friedreich Ataxi a results Encounter Details Date Type Department Care Team ([facility] Contact Info) Description 03/14/2023 Telephone [facility] [place] [address] [facility] [address] [place] [address] Shari Park GC [address] [address] [place] [address] Results (Friedreich Ataxia results) Social [...] Shari Park GC - 03/14/2023 12:53 PM FLIGHT DIRECTOR March 14, 2023 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 She had this testing done as carrier screening for her current due to her sister having children affected with this condition. 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 Trinucleotide repeats in the range of 5-33 are considered in the normal range. 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 We discussed that this analysis does not rule out rare point mutations. There was not a review of Tata's nieces and nephew's genetic test results to confirm that it was due to trinucleotide repeat expansion, but this is the most common inheritance. Shari Park MS, [facility] Licensed Genetic Counselor [facility] Pager: [phone] Office: [phone] HT DIRECTOR documented in this encounter Plan of Treatment Not on file documented as of this encounter Visit Diagnoses Not on filedocumented in this encounter Additional Health Concerns Assessment Noted Time PHQ-9 Depression Total Score: 14 020 4:15 PM CDT documented as of this encounter Care Teams Metaphysics Teacher Relationship Specialty Start Date End Date Karen Peña MD [address] [place] [address] PCP - General Internal Medicine 09/16/18 Benita Gonsales NP [facility] [address] [place] [address] Nurse Practitioner Nurse Practitioner Psych/Mental Health 09/17/18 documented as of this encounter
--- OUTSIDE RECORDS SUMMARY | 2023-06-20 13:05 | XMS_ITS | Referral Summary ---
Author Name Unknown Organization [place] Address [address] [place] [address] Care Team Providers Care Doorperson Name Role Phone Karen Peña MD Primary [facility]ider [facility] OUTSIDE B2B SALES Unavailable [phone] Allergies No known active allergies Medications [...] on 04/11/2021 cyclobenzaprine (FLEXERIL) 10 MG tabletIndications:Ac [place] right-sided low back pain without sciatica Take [...] Comments Blood Pressure 124/76 04/11/2021 2:28 PM ECONOMICS INSTRUCTOR Pulse 78 04/11/2021 2:28 PM ECONOMICS INSTRUCTOR Temperature 36.9 ??C (98.5 ??F) 04/11/2021 2:28 PM CS T Respiratory Rate 16 04/11/2021 2:28 PM ECONOMICS INSTRUCTOR Oxygen Saturation 99% 04/11/2021 2:28 PM ECONOMICS INSTRUCTOR Inhaled Oxygen Concentration - - Weight 88.9 kg (196 lb) 04/11/2021 2:28 PM ECONOMICS INSTRUCTOR Height 162.6 cm (5' 4) 04/11/2021 2:28 PM ECONOMICS INSTRUCTOR Body Mass Index 33.64 04/11/2021 2:28 PM ECONOMICS INSTRUCTOR Plan of Treatment Not on file Procedures [...] Reyna Report Patient Name: TATA CORTÉS MR#: [id number] Specimen #: [id number] Collected: 10/17/2018 Received: 10/22/2018 Reported: 10/23/2018 13:53 [...] adenocarcinomas or other cancers. COLLECTION SITE: Client: ??[facility] Location: [facility] () The technical component of this testing was completed at the [facility], with the professional component performed at the [facility], [address] [place] [phone] ([phone]) COPATH Cytologic material (specimen) 10/17/2018 5:50 PM CDT 10/22/2018 7:35 AM CDT Karen Peña MD LAB - O PTIME CLINICAL SPECIMEN COPATH * (ABNORMAL) HPV High Risk Types DNA Cervical (10/17/2018 5:30 PM CDT) HPV Source SurePath 10/24/2018 8:05 AM CDT [facility] HPV 16 DNA Negative NEG^Nega tive 10/24/2018 2:44 PM CDT [facility] HPV 18 DNA Negative NEG^Nega tive 10/24/2018 2:44 PM CDT [facility] Other HR HPV Positive(A) NEG^Nega tive 10/24/2018 2:44 PM CDT [facility] Final Diagnosis This patient's sample is positive for other HR HPV DNA (types 31, 33, 35, 39, 45, 51, 52, 56, 58, 59, 66 or 68), not HPV 16 or HPV 18 DNA. This result requires clinical correlation with concurrent cytology findings. 10/24/2018 2:44 PM CDT [facility] Comment: This test was developed and its performance characteristics determined by the [facility], Molecular Diagnostics Laboratory. It has not [...] Description Cervical Cells 10/24/2018 8:05 AM CDT [facility] Comment:[id number] 10/17/2018 5:30 PM CDT 10/17/2018 6:10 PM CDT Karen Peña MD LAB - B LOOD ORDERABLES [facility] [address] [place] [address] from Last 3 Months or Most Recently Relevant to Health Maintenance Care Teams Doorperson Relationship Specialty Start Date End Date Karen Peña MD [address] [place] [address] PCP - General Internal Medicine 09/16/18 Benita Gonsales NP [facility] [address] [place] [address] Nurse Practitioner Nurse Practitioner Psych/Mental Health 09/17/18
--- OUTSIDE RECORDS SUMMARY | 2023-06-20 13:05 | XMS_ITS | Clinical Summary ---
Author Name Unknown Organization [place] Address [address] [place] [address] Care Team Providers Care Power House Engineer Name Role Phone Karen Peña MD Primary Care P rovider [facility] Unavailable [phone] Allergies No known active allergies Medications [...] on 04/11/2021 cyclobenzaprine (FLEXERIL) 10 MG tabletIndications:Ac [place] right-sided low back pain without sciatica Take [...] Comments Blood Pressure 124/76 04/11/2021 2:28 PM GROUNDWATER CONSULTANT Pulse 78 04/11/2021 2:28 PM GROUNDWATER CONSULTANT Temperature 36.9 ??C (98.5 ??F) 04/11/2021 2:28 PM CS T Respiratory Rate 16 04/11/2021 2:28 PM GROUNDWATER CONSULTANT Oxygen Saturation 99% 04/11/2021 2:28 PM GROUNDWATER CONSULTANT Inhaled Oxygen Concentration - - Weight 88.9 kg (196 lb) 04/11/2021 2:28 PM GROUNDWATER CONSULTANT Height 162.6 cm (5' 4) 04/11/2021 2:28 PM GROUNDWATER CONSULTANT Body Mass Index 33.64 04/11/2021 2:28 PM GROUNDWATER CONSULTANT Plan of Treatment Health Maintenance Due Date [...] Copath Report Patient Name: TATA CORTÉS MR#: [id number] Specimen #: [id number] Collected: 10/17/2018 Received: 10/22/2018 Reported: 10/23/2018 13:53 [...] adenocarcinomas or other cancers. COLLECTION SITE: Client: ??[facility] Location: [place] ([place]) The technical component of this testing was completed at the [facility] [employer] [facility], with the professional component performed at the [facility] [employer] [facility], [address] [place] [phone] ([phone]) COPTRANG Cytologic material (specimen) 10/17/2018 5:50 PM CDT 10/22/2018 7:35 AM CDT Karen Peña MD LAB - O PTIME CLINICAL SPECIMEN COPATH * (ABNORMAL) HPV High Risk Types DNA Cervical (10/17/2018 5:30 PM CDT) HPV Source SurePath 10/24/2018 8:05 AM CDT [facility] HPV 16 DNA Negative NEG^Nega tive 10/24/2018 2:44 PM CDT [facility] HPV 18 DNA Negative NEG^Nega tive 10/24/2018 2:44 PM CDT [facility] Other HR HPV Positive(A) NEG^Nega tive 10/24/2018 2:44 PM CDT [facility] Final Diagnosis This patient's sample is positive for other HR HPV DNA (types 31, 33, 35, 39, 45, 51, 52, 56, 58, 59, 66 or 68), not HPV 16 or HPV 18 DNA. This result requires clinical correlation with concurrent cytology findings. 10/24/2018 2:44 PM CDT [facility] Comment: This test was developed and its performance characteristics determined by the [facility], Molecular Diagnostics Laboratory. It has not [...] Description Cervical Cells 10/24/2018 8:05 AM CDT [facility] Comment:[id number] 10/17/2018 5:30 PM CDT 10/17/2018 6:10 PM CDT Karen Peña MD LAB - B LOOD ORDERABLES [facility] [address] [place] [address] from Last 3 Months or Most Recently Relevant to Health Maintenance Care Teams Power House Engineer Relationship Specialty Start Date End Date Karen Peña MD [address] [place], [place] [id number] PCP - General Internal Medicine 09/16/18 Benita Gonsales NP CLINICS [address] [place], [place] [address] Nurse Practitioner Nurse Practitioner Psych/Mental Health 09/17/18
--- OUTSIDE RECORDS SUMMARY | 2023-06-20 13:05 | XMS_ITS | Encounter Summary ---
Author Name Unknown Organization [place] Address [address] [place] [address] Care Team Providers Care Draughtsman Name Role Phone Karen Peña MD Unavailable Karen Peña MD Primary Care P rovider [facility], Benita L ZIGZAG TOPSTITCHER Unavailable [phone] Yolanda Chowdary APRN GRINDER SET UP OPERATOR UNIVERSAL Unavailable Un available [facility], Benita L ZIGZAG TOPSTITCHER Unavailable [phone] Karen Peña MD Unavailable Yolanda Chowdary APRN GRINDER SET UP OPERATOR UNIVERSAL Unavailable Un available Karen Peña MD Unavailable Yolanda Chowdary APRN GRINDER SET UP OPERATOR UNIVERSAL Unavailable Un available Yolanda Chowdary APRN GRINDER SET UP OPERATOR UNIVERSAL Unavailable Un available Encounter Details Date Type [...] documented as of this encounter Care Teams Draughtsman Relationship Specialty Start Date End Date Karen Peña MD [address] [place] [address] PCP - General Internal Medicine 09/16/18 Karen Peña MD [address] [place] [address] Assigned PCP 08/04/18 11/01/19 Benita Gonsales NP [facility] [address] [place], [place] [address] Nurse Practitioner Nurse Practitioner Psych/Mental Health 09/17/18 Yolanda Chowdary APRN GRINDER SET UP OPERATOR UNIVERSAL Assigned PCP 11/02/19 10/30/20 Benita [place] [id number] [place] [address] Assigned Behavioral Health Provider 12/12/19 03/20/20 Karen Peña MD [address] [place] [address] Assigned PCP 10/31/20 02/26/21 Yolanda Chowdary APRN GRINDER SET UP OPERATOR UNIVERSAL Assigned PCP 02/27/21 04/30/21 Karen Peña MD [address] [place] [address] Assigned PCP 05/01/21 10/21/21 Yolanda Chowdary APRN GRINDER SET UP OPERATOR UNIVERSAL Assigned PCP 10/22/21 02/03/22 Yolanda Chowdary APRN GRINDER SET UP OPERATOR UNIVERSAL Assigned PCP 04/15/22 04/21/22 documented as of this encounter
--- OUTSIDE RECORDS SUMMARY | 2023-06-20 13:05 | XMS_ITS | Encounter Summary ---
Author Name Unknown Organization [place] Address [address] [place] [address] Care Team Providers Care Department Coordinator Name Role Phone [facility], [facility] Primary Care Provide r None Primary Care Provider Unavailabl e No Ref-Primary, Physician Primary Care Provider Yolanda Chowdary APRN REGISTERED NURSE OBSTETRICS Primary Care Provi renetta Unavailable Yolanda Chowdary APRN REGISTERED NURSE OBSTETRICS Unavailable Un available Yolanda Chowdary APRN, CNP Unavailable Un available Karen Peña MD Unavailable Karen Peña MD Primary Care P rovider [facility], Benita L TRAFFIC CONTROLLER CABLE Unavailable [phone] Yolanda Chowdary APRN REGISTERED NURSE OBSTETRICS Unavailable Un available [facility], Benita L TRAFFIC CONTROLLER CABLE Unavailable [phone] Karen Peña MD Unavailable Yolanda Chowdary APRN REGISTERED NURSE OBSTETRICS Unavailable Un available Karen Peña MD Unavailable Yolanda Chowdary APRN REGISTERED NURSE OBSTETRICS Unavailable Un available Yolanda Chowdary APRN, CNP Unavailable Un available Reason for Visit * Reason Onset Date Comments Panel Management 09/29/2014 pap due Encounter Details Date Type Department Care Team (Late st Contact Info) Description 09/29/2014 Telephone [facility] [id number] [place] [address], [address] [place] [address] [place] [address] [place] [address] Panel Management (pap due) Social History Tobacco [...] Review Date of last visit with a [facility] provider: Juan Miguel Wallace on 06/02/14. Date of next visit with a [facility] provider: None. Problem List There is no [...] cervix documented in this encounter Care Teams Department Coordinator Relationship Specialty Start Date End Date [facility] [address] [place], [place] [id number] PCP - General 04/16/14 06/20/16 None PCP - General 06/21/16 10/19/16 No Ref-Primary, Physician PCP - General 04/03/17 07/30/17 Yolanda Chowdary APRN REGISTERED NURSE OBSTETRICS PCP - General Nurse Practitioner - Adult Health 07/31/17 09/15/18 Yolanda Chowdary APRN REGISTERED NURSE OBSTETRICS PCP - Assigned PCP 08/05/17 04/23/18 Karen Peña MD [address] [place], [place] [address] PCP - General Internal Medicine 09/16/18 Yolanda Chowdary APRN REGISTERED NURSE OBSTETRICS Assigned PCP 08/05/17 08/03/18 Karen Peña MD [address] [place], [place] [id number] Assigned PCP 08/04/18 11/01/19 Benita Gonsales NP [facility] [address] [place], [place] [id number] Nurse Practitioner Nurse Practitioner Psych/Mental Health 09/17/18 Yolanda Chowdary APRN REGISTERED NURSE OBSTETRICS Assigned PCP 11/02/19 10/30/20 Benita Gonsales, TRAFFIC CONTROLLER CABLE [address] [place] [address] Assigned Behavioral Health Provider 12/12/19 03/20/20 Karen Peña MD [address] [place] [address] Assigned PCP 10/31/20 02/26/21 Yolanda Chowdary APRN REGISTERED NURSE OBSTETRICS Assigned PCP 02/27/21 04/30/21 Karen Peña MD [address] [place] [address] Assigned PCP 05/01/21 10/21/21 Yolanda Chowdary APRN REGISTERED NURSE OBSTETRICS Assigned PCP 10/22/21 02/03/22 Yolanda Chowdary APRN REGISTERED NURSE OBSTETRICS Assigned PCP 04/15/22 04/21/22 documented as of this encounter
== END 2023-06-20 13:04 | disposition home or self-care (01) ==
LOC: US 13:03
PROVIDERS: Visit Provider Obstetrics & Gynecology
DX: O99.213 Obesity complicating pregnancy, third trimester (principal); Z68.37 Body mass index [BMI] 37.0-37.9, adult; Z3A.39 39 weeks gestation of pregnancy
CPT/HCPCS: 76819

== ENCOUNTER 2023-06-27 12:57 | Outpatient (CLI) | payer MEDICAID, SELFPAY ==
--- OUTSIDE RECORDS SUMMARY | 2023-06-27 12:59 | XMS_ITS | Clinical Summary ---
Author Name Unknown Organization [place] Address [address] [place] [address] Care Team Providers Care Signalling And Communications Engineer Name Role Phone Karen Peña MD [facility] Un[facility] [phone] Allergies No known active allergies Medications [...] on 04/11/2021 cyclobenzaprine (FLEXERIL) 10 MG tabletIndications:Ac [place] right-sided low back pain without sciatica Take [...] Comments Blood Pressure 124/76 04/11/2021 2:28 PM BIOMETRICS SPECIALIST Pulse 78 04/11/2021 2:28 PM BIOMETRICS SPECIALIST Temperature 36.9 ??C (98.5 ??F) 04/11/2021 2:28 PM CS T Respiratory Rate 16 04/11/2021 2:28 PM BIOMETRICS SPECIALIST Oxygen Saturation 99% 04/11/2021 2:28 PM BIOMETRICS SPECIALIST Inhaled Oxygen Concentration - - Weight 88.9 kg (196 lb) 04/11/2021 2:28 PM BIOMETRICS SPECIALIST Height 162.6 cm (5' 4) 04/11/2021 2:28 PM BIOMETRICS SPECIALIST Body Mass Index 33.64 04/11/2021 2:28 PM BIOMETRICS SPECIALIST Plan of Treatment Health Maintenance Due Date [...] 09/20, 09/17/2018, Additional history exists COVID-19 Vaccine (2022- season) 2022 MATERNAL SCREENING DISCUSSION 11/28/2022 OBGCT (OB) 03/06/2023 GROUP B STREP SCREENING 05/29/2023 INFLUENZA VACCINE (Season Ended) 2023 COLONOSCOPY 10/25/2023 10/24/2018, 06/2018, 04/03/2017, Additional history [...] Copath Report Patient Name: TATA CORTÉS MR#: [id number] Specimen #: [id number] Collected: 10/17/2018 Received: 10/22/2018 Reported: 10/23/2018 13:53 [...] adenocarcinomas or other cancers. COLLECTION SITE: Client: ??[facility] Location: [place] ([place]) The technical component of this testing was completed at the [facility] [employer] [facility], with the professional component performed at the [facility] [employer] [facility], [address] [place] [phone] ([phone]) COPTRANG Cytologic material (specimen) 10/17/2018 5:50 PM CDT 10/22/2018 7:35 AM CDT Karen Peña MD LAB - O PTIME CLINICAL SPECIMEN COPATH * (ABNORMAL) HPV High Risk Types DNA Cervical (10/17/2018 5:30 PM CDT) HPV Source SurePath 10/24/2018 8:05 AM CDT [facility] HPV 16 DNA Negative NEG^Nega tive 10/24/2018 2:44 PM CDT [facility] HPV 18 DNA Negative NEG^Nega tive 10/24/2018 2:44 PM CDT [facility] Other HR HPV Positive(A) NEG^Nega tive 10/24/2018 2:44 PM CDT [facility] Final Diagnosis This patient's sample is positive for other HR HPV DNA (types 31, 33, 35, 39, 45, 51, 52, 56, 58, 59, 66 or 68), not HPV 16 or HPV 18 DNA. This result requires clinical correlation with concurrent cytology findings. 10/24/2018 2:44 PM CDT [facility] Comment: This test was developed and its performance characteristics determined by the [facility], Molecular Diagnostics Laboratory. It has not [...] Cervical Cells 10/24/2018 8:05 AM CDT [facility] Comment:[id number] 10/17/2018 5:30 PM CDT 10/17/2018 6:10 PM CDT Karen Peña MD LAB - B LOOD ORDERABLES [facility] [address] [place] [address] from Last 3 Months or Most Recently Relevant to Health Maintenance Care Teams Signalling And Communications Engineer Relationship Specialty Start Date End Date Karen Peña MD [address] [place], [place] [address] PCP - General Internal Medicine 09/16/18 Benita Gonsales NP [facility] [address] [place], [place] [address] Nurse Practitioner Nurse Practitioner Psych/Mental Health 09/17/18
--- OUTSIDE RECORDS SUMMARY | 2023-06-27 12:59 | XMS_ITS | Encounter Summary ---
Author Name Unknown Organization [place] Address [address] [place] [address] Care Team Providers Care Fire Ranger Name Role Phone [facility], [facility] Primary Care Provide r None Primary Care Provider Unavailabl e No Ref-Primary, Physician Primary Care Provider Yolanda Chowdary APRN SSDS MK 2 ADVANCED OPERATOR Primary Care Provi renetta Unavailable Yolanda Chowdary APRN SSDS MK 2 ADVANCED OPERATOR Unavailable Un available Yolanda Chowdary APRN, CNP Unavailable Un available Karen Peña MD Unavailable Karen Peña MD Primary Care P rovider [facility], Benita L PRECISION DYER Unavailable [phone] Yolanda Chowdary APRN SSDS MK 2 ADVANCED OPERATOR Unavailable Un available [facility], Benita L PRECISION DYER Unavailable [phone] Karen Peña MD Unavailable Yolanda Chowdary APRN SSDS MK 2 ADVANCED OPERATOR Unavailable Un available Karen Peña MD Unavailable Yolanda Chowdary APRN SSDS MK 2 ADVANCED OPERATOR Unavailable Un available Yolanda Chowdary APRN, CNP Unavailable Un available Reason for Visit * Reason Onset Date Comments Panel Management 09/29/2014 pap due Encounter Details Date Type Department Care Team (Late st Contact Info) Description 09/29/2014 Telephone [facility] [id number] [place] [address], [address] [place] [address] [place] [address] [place] [address] Panel Management (pap due) Social History Tobacco [...] Review Date of last visit with a [facility] provider: Juan Miguel Wallace on 06/02/14. Date of next visit with a [facility] provider: None. Problem List There is no [...] cervix documented in this encounter Care Teams Fire Ranger Relationship Specialty Start Date End Date [facility], [facility] [address] [place], [place] [id number] PCP - General 04/16/14 06/20/16 None PCP - General 06/21/16 10/19/16 No Ref-Primary, Physician PCP - General 04/03/17 07/30/17 Yolanda Chowdary APRN SSDS MK 2 ADVANCED OPERATOR PCP - General Nurse Practitioner - Adult Health 07/31/17 09/15/18 Yolanda Chowdary APRN SSDS MK 2 ADVANCED OPERATOR PCP - Assigned PCP 08/05/17 04/23/18 Karen Peña MD [address] [place], [place] [address] PCP - General Internal Medicine 09/16/18 Yolanda Chowdary APRN SSDS MK 2 ADVANCED OPERATOR Assigned PCP 08/05/17 08/03/18 Karen Peña MD [address] [place], [place] [id number] Assigned PCP 08/04/18 11/01/19 Benita Gonsales NP [facility] [address] [place], [place] [phone] Nurse Practitioner Nurse Practitioner Psych/Mental Health 09/17/18 Yolanda Chowdary APRN SSDS MK 2 ADVANCED OPERATOR Assigned PCP 11/02/19 10/30/20 Benita Gonsales, PRECISION DYER [address] [place] [address] Assigned Behavioral Health Provider 12/12/19 03/20/20 Karen Peña MD [address] [place] [address] Assigned PCP 10/31/20 02/26/21 Yolanda Chowdary APRN SSDS MK 2 ADVANCED OPERATOR Assigned PCP 02/27/21 04/30/21 Karen Peña MD [address] [place] [address] Assigned PCP 05/01/21 10/21/21 Yolanda Chowdary APRN SSDS MK 2 ADVANCED OPERATOR Assigned PCP 10/22/21 02/03/22 Yolanda Chowdary APRN SSDS MK 2 ADVANCED OPERATOR Assigned PCP 04/15/22 04/21/22 documented as of this encounter
--- OUTSIDE RECORDS SUMMARY | 2023-06-27 12:59 | XMS_ITS | Referral Summary ---
Author Name Unknown Organization [place] Address [address] [place] [address] Care Team Providers Care Behavior Management Specialist Name Role Phone Karen Peña MD [facility] PEDIATRIC CLINICAL NURSE SPECIALIST Unavailable [phone] Allergies No known active allergies Medications [...] on 04/11/2021 cyclobenzaprine (FLEXERIL) 10 MG tabletIndications:Ac [place] right-sided low back pain without sciatica Take [...] Comments Blood Pressure 124/76 04/11/2021 2:28 PM FAIRING WORKER Pulse 78 04/11/2021 2:28 PM FAIRING WORKER Temperature 36.9 ??C (98.5 ??F) 04/11/2021 2:28 PM CS T Respiratory Rate 16 04/11/2021 2:28 PM FAIRING WORKER Oxygen Saturation 99% 04/11/2021 2:28 PM FAIRING WORKER Inhaled Oxygen Concentration - - Weight 88.9 kg (196 lb) 04/11/2021 2:28 PM FAIRING WORKER Height 162.6 cm (5' 4) 04/11/2021 2:28 PM FAIRING WORKER Body Mass Index 33.64 04/11/2021 2:28 PM FAIRING WORKER Plan of Treatment Not on file Procedures [...] Reyna Report Patient Name: TATA CORTÉS MR#: [id number] Specimen #: [id number] Collected: 10/17/2018 Received: 10/22/2018 Reported: 10/23/2018 13:53 [...] adenocarcinomas or other cancers. COLLECTION SITE: Client: ??[facility] Location: [facility] () The technical component of this testing was completed at the [facility], with the professional component performed at the [facility], [address] [place] [phone] ([phone]) COPATH Cytologic material (specimen) 10/17/2018 5:50 PM CDT 10/22/2018 7:35 AM CDT Karen Peña MD LAB - O PTIME CLINICAL SPECIMEN COPATH * (ABNORMAL) HPV High Risk Types DNA Cervical (10/17/2018 5:30 PM CDT) HPV Source SurePath 10/24/2018 8:05 AM CDT [facility] HPV 16 DNA Negative NEG^Nega tive 10/24/2018 2:44 PM CDT [facility] HPV 18 DNA Negative NEG^Nega tive 10/24/2018 2:44 PM CDT [facility] Other HR HPV Positive(A) NEG^Nega tive 10/24/2018 2:44 PM CDT [facility] Final Diagnosis This patient's sample is positive for other HR HPV DNA (types 31, 33, 35, 39, 45, 51, 52, 56, 58, 59, 66 or 68), not HPV 16 or HPV 18 DNA. This result requires clinical correlation with concurrent cytology findings. 10/24/2018 2:44 PM CDT [facility] Comment: This test was developed and [...] Description Cervical Cells 10/24/2018 8:05 AM CDT [facility] Comment:[id number] 10/17/2018 5:30 PM CDT 10/17/2018 6:10 PM CDT Karen Peña MD LAB - B LOOD ORDERABLES [facility] [address] [place] [address] from Last 3 Months or Most Recently Relevant to Health Maintenance Care Teams Behavior Management Specialist Relationship Specialty Start Date End Date Karen ePña MD [address] [place] [address] PCP - General Internal Medicine 09/16/18 Beinta Gonsales NP [facility] [address] [place] [address] Nurse Practitioner Nurse Practitioner Psych/Mental Health 09/17/18
--- OUTSIDE RECORDS SUMMARY | 2023-06-27 12:59 | XMS_ITS | Encounter Summary ---
Author Name Unknown Organization [place] Address [address] [place] [address] Care Team Providers Care Internal Controls Specialist Name Role Phone Karen Peña MD Unavailable Karen Peña MD Primary Care P rovider [facility], Benita L SECOND HELPER Unavailable [phone] Yolanda Chowdary APRN STAFF RESEARCH SCIENTIST Unavailable Un available [facility], Benita L SECOND HELPER Unavailable [phone] Karen Peña MD Unavailable Yolanda Chowdary APRN STAFF RESEARCH SCIENTIST Unavailable Un available Karen Peña MD Unavailable Yolanda Chowdary APRN STAFF RESEARCH SCIENTIST Unavailable Un available Yolanda Chowdary APRN STAFF RESEARCH SCIENTIST Unavailable Un available Encounter Details Date Type [...] documented as of this encounter Care Teams Internal Controls Specialist Relationship Specialty Start Date End Date Karen Peña MD [address] [place] [address] PCP - General Internal Medicine 09/16/18 Karen Peña MD [address] [place] [address] Assigned PCP 08/04/18 11/01/19 Benita Gonsales NP [facility] [address] [place], [place] [address] Nurse Practitioner Nurse Practitioner Psych/Mental Health 09/17/18 Yolanda Chowdary APRN STAFF RESEARCH SCIENTIST Assigned PCP 11/02/19 10/30/20 Benita [place] [address] [place] [address] Assigned Behavioral Health Provider 12/12/19 03/20/20 Karen Peña MD [address] [place] [address] Assigned PCP 10/31/20 02/26/21 Yolanda Chowdary APRN STAFF RESEARCH SCIENTIST Assigned PCP 02/27/21 04/30/21 Karen Peña MD [address] [place] [address] Assigned PCP 05/01/21 10/21/21 Yolanda Chowdary APRN STAFF RESEARCH SCIENTIST Assigned PCP 10/22/21 02/03/22 Yolanda Chowdary APRN STAFF RESEARCH SCIENTIST Assigned PCP 04/15/22 04/21/22 documented as of this encounter
--- OUTSIDE RECORDS SUMMARY | 2023-06-27 12:59 | XMS_ITS | Encounter Summary ---
Author Name Unknown Organization [place] Address [address] [place] [address] Care Team Providers Care Employment Representative Name Role Phone Karen Peña MD Primary Care P rovider [facility], Benita Hernandez CUSTOMER SERVICE REPRESENTATIVE TELLER Unavailable [phone] Yolanda Chowdary APRN ELECTRICIAN SUPERVISOR SUBSTATION Unavailable Un available [facility], Benita Hernandez CUSTOMER SERVICE REPRESENTATIVE TELLER Unavailable [phone] Karen Peña MD Unavailable Yolanda Chowdary APRN ELECTRICIAN SUPERVISOR SUBSTATION Unavailable Un available Karen Peña MD Unavailable Yolanda Chowdary APRN ELECTRICIAN SUPERVISOR SUBSTATION Unavailable Un available Yolanda Chowdary APRN ELECTRICIAN SUPERVISOR SUBSTATION Unavailable Un available Encounter Details Date Type Department Care Team (Late st Contact Info) Description 03/10/2020 [facility] Medical Advice [address] [place] [address] Cherelle Romero RN Social History [...] documented as of this encounter Care Teams Employment Representative Relationship Specialty Start Date End Date Karen Peña MD [address] [place] [address] PCP - General Internal Medicine 09/16/18 Benita Gonsales, CUSTOMER SERVICE REPRESENTATIVE TELLER [facility] [address] [place] [address] Nurse Practitioner Nurse Practitioner Psych/Mental Health 09/17/18 Yolanda Chowdary APRN ELECTRICIAN SUPERVISOR SUBSTATION Assigned PCP 11/02/19 10/30/20 [place] [address] [place] [address] Assigned Behavioral Health Provider 12/12/19 03/20/20 Karen Peña MD [address] [place] [address] Assigned PCP 10/31/20 02/26/21 Yolanda Chowdary APRN ELECTRICIAN SUPERVISOR SUBSTATION Assigned PCP 02/27/21 04/30/21 Karen Peña MD [address] [place] [address] Assigned PCP 05/01/21 10/21/21 Yolanda Chowdary APRN ELECTRICIAN SUPERVISOR SUBSTATION Assigned PCP 10/22/21 02/03/22 Yolanda Chowdary APRN ELECTRICIAN SUPERVISOR SUBSTATION Assigned PCP 04/15/22 04/21/22 documented as of this encounter
--- NOTE | 2023-06-27 13:00 | US_ITS ---
Patient: NAMAN RUGGIERO Facility:?[facility] Patient ID:?[id number] Site Patient ID:?[id number]. Site :?[id number] Study:?US-OB Pelvis BPP-06/27/2023 1:52:59 PM Ordering Physician:Celeste Camacho Final Report: INDICATION: Post dates. COMPARISON: OB ultrasound 06/20/2023. TECHNIQUE: Ultrasound OB pelvis biophysical profile. Real time seay scale imaging of the fetus was performed without non-stress testing. FINDINGS: Sonographic imaging demonstrates a single living intrauterine gestation. The fetus demonstrates a regular cardiac rate of 141 beats per minute. The fetus has a cephalic orientation. The placenta lies anteriorly. Amniotic fluid volume appears normal with single deepest pocket measuring 2.9 cm and the amniotic fluid index measuring 7.0 cm (2/2). The fetus was active (2/2). There was normal flexion and extension of the trunk and extremities (2/2). The fetus demonstrated normal breathing movements (2/2). IMPRESSION: Normal biophysical profile score 8 out of 8. Dictated by Alix Morin MD @ 06/28/2023 3:13:51 AM Signed by:?Alix Morin MD @06/28/2023 3:13:51 AM (Electronic Signature)
== END 2023-06-27 12:58 | disposition home or self-care (01) ==
LOC: US 12:57
PROVIDERS: Visit Provider Obstetrics & Gynecology
DX: O48.0 Post-term pregnancy (principal)
CPT/HCPCS: 76819

== ENCOUNTER 2023-06-29 05:45 | Inpatient (IN) | payer MEDICAID, SELFPAY ==
[2023-06-29] VITALS (85 sets, daily range): BP systolic 95–144; BP diastolic 56–89; PULSE 64–100; RESP 16–20; TEMP 36.4–36.7; O2SAT 96–99; BMI 38.6
--- OUTSIDE RECORDS SUMMARY | 2023-06-29 05:48 | XMS_ITS | Encounter Summary ---
Author Name Unknown Organization [place] Address [address] [place] [address] Care Team Providers Care Plant Control Operator Name Role Phone Karen Peña MD Unavailable Karen Peña MD Primary Care P rovider [facility], Benita L PERFORMANCE IMPROVEMENT MANAGER Unavailable [phone] Yolanda Chowdary APRN CATTLE DEHORNER Unavailable Un available [facility], Benita L PERFORMANCE IMPROVEMENT MANAGER Unavailable [phone] Karen Peña MD Unavailable Yolanda Chowdary APRN CATTLE DEHORNER Unavailable Un available Karen Peña MD Unavailable Yolnada Chowdary APRN CATTLE DEHORNER Unavailable Un available Yolanda Chowdary APRN CATTLE DEHORNER Unavailable Un available Encounter Details Date Type [...] documented as of this encounter Care Teams Plant Control Operator Relationship Specialty Start Date End Date Karen Peña MD [address] [place] [address] PCP - General Internal Medicine 09/16/18 Karen Peña MD [address] [place] [address] Assigned PCP 08/04/18 11/01/19 Benita Gonsales NP [facility] [address] [place], [place] [address] Nurse Practitioner Nurse Practitioner Psych/Mental Health 09/17/18 Yolanda Chowdary APRN CATTLE DEHORNER Assigned PCP 11/02/19 10/30/20 Benita [place] [address] [place] [address] Assigned Behavioral Health Provider 12/12/19 03/20/20 Karen Peña MD [address] [place] [address] Assigned PCP 10/31/20 02/26/21 Yolanda Chowdary APRN CATTLE DEHORNER Assigned PCP 02/27/21 04/30/21 Karen Peña MD [address] [place] [address] Assigned PCP 05/01/21 10/21/21 Yolanda Chowdary APRN CATTLE DEHORNER Assigned PCP 10/22/21 02/03/22 Yolanda Chowdary APRN CATTLE DEHORNER Assigned PCP 04/15/22 04/21/22 documented as of this encounter
--- OUTSIDE RECORDS SUMMARY | 2023-06-29 05:48 | XMS_ITS | Clinical Summary ---
Author Name Unknown Organization [place] Address [address] [place] [address] Care Team Providers Care Commercial Artist Lettering Name Role Phone Karen Peña MD [facility] Un[facility] [phone] Allergies No known active allergies Medications [...] on 04/11/2021 cyclobenzaprine (FLEXERIL) 10 MG tabletIndications:Ac [place] right-sided low back pain without sciatica Take [...] Comments Blood Pressure 124/76 04/11/2021 2:28 PM FACILITIES CLERK Pulse 78 04/11/2021 2:28 PM FACILITIES CLERK Temperature 36.9 ??C (98.5 ??F) 04/11/2021 2:28 PM CS T Respiratory Rate 16 04/11/2021 2:28 PM FACILITIES CLERK Oxygen Saturation 99% 04/11/2021 2:28 PM FACILITIES CLERK Inhaled Oxygen Concentration - - Weight 88.9 kg (196 lb) 04/11/2021 2:28 PM FACILITIES CLERK Height 162.6 cm (5' 4) 04/11/2021 2:28 PM FACILITIES CLERK Body Mass Index 33.64 04/11/2021 2:28 PM FACILITIES CLERK Plan of Treatment Health Maintenance Due Date [...] Copath Report Patient Name: TATA CORTÉS MR#: [id number] Specimen #: [id number] Collected: 10/17/2018 Received: 10/22/2018 Reported: 10/23/2018 13:53 [...] adenocarcinomas or other cancers. COLLECTION SITE: Client: ??[facility] Location: [place] ([place]) The technical component of this testing was completed [facility], with the professional component performed at the [facility] acute [facility], [address] [place] [phone] ([phone]) COPTRANG Cytologic material (specimen) 10/17/2018 5:50 PM CDT 10/22/2018 7:35 AM CDT Karen Peña MD LAB - O PTIME CLINICAL SPECIMEN COPATH * (ABNORMAL) HPV High Risk Types DNA Cervical (10/17/2018 5:30 PM CDT) HPV Source SurePath 10/24/2018 8:05 AM CDT [facility] HPV 16 DNA Negative NEG^Nega tive 10/24/2018 2:44 PM CDT [facility] HPV 18 DNA Negative NEG^Nega tive 10/24/2018 2:44 PM CDT [facility] Other HR HPV Positive(A) NEG^Nega tive 10/24/2018 2:44 PM CDT [facility] Final Diagnosis This patient's sample is positive for other HR HPV DNA (types 31, 33, 35, 39, 45, 51, 52, 56, 58, 59, 66 or 68), not HPV 16 or HPV 18 DNA. This result requires clinical correlation with concurrent cytology findings. 10/24/2018 2:44 PM CDT [facility] Comment: This test was developed and its performance characteristics determined by the [facility], Molecular Diagnostics Laboratory. It has not been [...] Description Cervical Cells 10/24/2018 8:05 AM CDT [facility] Comment:[id number] 10/17/2018 5:30 PM CDT 10/17/2018 6:10 PM CDT Karen Peña MD LAB - B LOOD ORDERABLES [facility] [address] [place] [address] from Last 3 Months or Most Recently Relevant to Health Maintenance Care Teams Commercial Artist Lettering Relationship Specialty Start Date End Date Karen Peña MD [address] [place], [place] [address] PCP - General Internal Medicine 09/16/18 Benita Gonsales NP [facility] [address] [place], [place] [address] Nurse Practitioner Nurse Practitioner Psych/Mental Health 09/17/18
--- OUTSIDE RECORDS SUMMARY | 2023-06-29 05:48 | XMS_ITS | Referral Summary ---
Author Name Unknown Organization [facility] Address [address] [place] [address] Care Team Providers Care Tower Cleaner Name Role Phone Karen Peña MD [facility] TALEO MANAGER Unavailable Allergies No known active allergies Medications Medication [...] on 04/11/2021 cyclobenzaprine (FLEXERIL) 10 MG tabletIndications:Ac tribal right-sided low back pain without sciatica Take [...] Comments Blood Pressure 124/76 04/11/2021 2:28 PM SENIOR ORACLE SOA DEVELOPER Pulse 78 04/11/2021 2:28 PM SENIOR ORACLE SOA DEVELOPER Temperature 36.9 ??C (98.5 ??F) 04/11/2021 2:28 PM CS T Respiratory Rate 16 04/11/2021 2:28 PM SENIOR ORACLE SOA DEVELOPER Oxygen Saturation 99% 04/11/2021 2:28 PM SENIOR ORACLE SOA DEVELOPER Inhaled Oxygen Concentration - - Weight 88.9 kg (196 lb) 04/11/2021 2:28 PM SENIOR ORACLE SOA DEVELOPER Height 162.6 cm (5' 4) 04/11/2021 2:28 PM SENIOR ORACLE SOA DEVELOPER Body Mass Index 33.64 04/11/2021 2:28 PM SENIOR ORACLE SOA DEVELOPER Plan of Treatment Not on file Procedures [...] Reyna Report Patient Name: TATA CORTÉS MR#: [id number] Specimen #: [id number] Collected: 10/17/2018 Received: 10/22/2018 Reported: 10/23/2018 13:53 [...] adenocarcinomas or other cancers. COLLECTION SITE: Client: ??[facility] Location: [facility] () The technical component of this testing was completed at the General acute hospital, with the professional component performed at the General acute hospital, [address] [place] [id number] ([phone]) COPATH Cytologic material (specimen) 10/17/2018 5:50 PM [...] and its performance characteristics determined by the [facility], Molecular Diagnostics Laboratory. It has not [...] OF [facility] Comment:[id number] 10/17/2018 5:30 PM CDT 10/17/2018 6:10 PM CDT Karen Peña MD LAB - B LOOD ORDERABLES [facility] [address] [place] [address] from Last 3 Months or Most Recently Relevant to Health Maintenance Care Teams Tower Cleaner Relationship Specialty Start Date End Date Karen Peña MD [address] [place] [address] PCP - General Internal Medicine 09/16/18 Benita Gonsales NP [facility] [address] [place] [address] Nurse Practitioner Nurse Practitioner Psych/Mental Health 09/17/18
--- OUTSIDE RECORDS SUMMARY | 2023-06-29 05:48 | XMS_ITS | Encounter Summary ---
Author Name Unknown Organization [facility] Address [address] [place] [address] Care Team Providers Care 7Th Grade Teacher Name Role Phone Karen ePña MD Primary Care P rovider [facility], Benita Hernandez ENTRY WRITER Unavailable [phone] Yolanda Chowdary APRN PROMOTIONAL ADVERTISING ASSISTANT Unavailable Un available [facility], Benita Hernandez ENTRY WRITER Unavailable [phone] Karen Peña MD Unavailable Yolanda Chowdary APRN PROMOTIONAL ADVERTISING ASSISTANT Unavailable Un available Karen Peña MD Unavailable Yolanda Chowdary APRN PROMOTIONAL ADVERTISING ASSISTANT Unavailable Un available Yolanda Chowdary APRN PROMOTIONAL ADVERTISING ASSISTANT Unavailable Un available Encounter Details Date Type Department Care Team (Late st Contact Info) Description 03/10/2020 MyC Medical Advice [address] [place] [address] Cherelle Romero RN Social History [...] documented as of this encounter Care Teams 7Th Grade Teacher Relationship Specialty Start Date End Date Karen Peña MD [address] [place] [address] PCP - General Internal Medicine 09/16/18 Benita Gonsales, ENTRY WRITER [facility] [address] [place] [address] Nurse Practitioner Nurse Practitioner Psych/Mental Health 09/17/18 Yolanda Chowdary APRN PROMOTIONAL ADVERTISING ASSISTANT Assigned PCP 11/02/19 10/30/20 [place] [address] [place] [address] Assigned Behavioral Health Provider 12/12/19 03/20/20 Karen Peña MD [address] [place] [address] Assigned PCP 10/31/20 02/26/21 Yolanda Chowdary APRN PROMOTIONAL ADVERTISING ASSISTANT Assigned PCP 02/27/21 04/30/21 Karen Peña MD [address] [place] [address] Assigned PCP 05/01/21 10/21/21 Yolanda Chowdary APRN PROMOTIONAL ADVERTISING ASSISTANT Assigned PCP 10/22/21 02/03/22 Yolanda Chowdary APRN PROMOTIONAL ADVERTISING ASSISTANT Assigned PCP 04/15/22 04/21/22 documented as of this encounter
--- OUTSIDE RECORDS SUMMARY | 2023-06-29 05:48 | XMS_ITS | Encounter Summary ---
Author Name Unknown Organization [facility] Address [address] [place] [address] Care Team Providers Care Wet Pour Mixer Name Role Phone [facility] Primary Care Provide r None Primary Care Provider Unavailabl e No Ref-Primary, Physician Primary Care Provider Yolanda Chowdary APRN TIME LOCK EXPERT Primary Care Provi renetta Unavailable Yolanda Chowdary APRN TIME LOCK EXPERT Unavailable Un available Yolanda Chowdary APRN, CNP Unavailable Un available Karen Peña MD Unavailable Karen Peña MD Primary Care P rovider [facility], Benita L HEALTHCARE NETWORK PRICING CONSULTANT Unavailable [phone] Yolanda Chowdary APRN TIME LOCK EXPERT Unavailable Un available [facility], Benita L HEALTHCARE NETWORK PRICING CONSULTANT Unavailable [phone] Karen Peña MD Unavailable Yolanda Chowdary APRN TIME LOCK EXPERT Unavailable Un available Karen Peña MD Unavailable Yolanda Chowdary APRN TIME LOCK EXPERT Unavailable Un available Yolanda Chowdary APRN, CNP Unavailable Un available Reason for Visit * Reason Onset Date Comments Panel Management 09/29/2014 pap due Encounter Details Date Type Department Care Team (Late st Contact Info) Description 09/29/2014 Telephone [facility] [id number] [place] [address], [address] [place] [address] [place] [address] [place] [address] Panel Management (pap due) Social History Tobacco [...] Review Date of last visit with a [facility] provider: Juan Miguel Wallace on 06/02/14. Date of next visit with a [facility] provider: None. Problem List There is no [...] cervix documented in this encounter Care Teams Wet Pour Mixer Relationship Specialty Start Date End Date [facility] [address] [place], [place] [id number] PCP - General 04/16/14 06/20/16 None PCP - General 06/21/16 10/19/16 No Ref-Primary, Physician PCP - General 04/03/17 07/30/17 Yolanda Chowdayr APRN TIME LOCK EXPERT PCP - General Nurse Practitioner - Adult Health 07/31/17 09/15/18 Yolanda Chowdary APRN TIME LOCK EXPERT PCP - Assigned PCP 08/05/17 04/23/18 Karen Peña MD [address] [place], [place] [id number] PCP - General Internal Medicine 09/16/18 Yolanda Chowdary APRN TIME LOCK EXPERT Assigned PCP 08/05/17 08/03/18 Karen Peña MD [address] [place], [place] [id number] Assigned PCP 08/04/18 11/01/19 Benita Gonsales NP [facility] [address] [place], [place] [id number] Nurse Practitioner Nurse Practitioner Psych/Mental Health 09/17/18 Yolanda Chowdary APRN TIME LOCK EXPERT Assigned PCP 11/02/19 10/30/20 Benita Gonsales, HEALTHCARE NETWORK PRICING CONSULTANT [address] [place] [address] Assigned Behavioral Health Provider 12/12/19 03/20/20 Karen Peña MD [address] [place] [address] Assigned PCP 10/31/20 02/26/21 Yolanda Chowdary APRN TIME LOCK EXPERT Assigned PCP 02/27/21 04/30/21 Karen Peña MD [address] [place] [address] Assigned PCP 05/01/21 10/21/21 Yolanda Chowdary APRN TIME LOCK EXPERT Assigned PCP 10/22/21 02/03/22 Yolanda Chowdary APRN TIME LOCK EXPERT Assigned PCP 04/15/22 04/21/22 documented as of this encounter
[2023-06-29] MEDS: LACTATED RINGERS 1000 ML 1,000 ML 999 ML IV (07:59)
[2023-06-29 08:22] LABS: Basophils Percent Auto 0.2 % (0.0-3.0); Hematocrit 39.2 % (33.0-51.0); Hemoglobin* 13.1 gm/dL (12.0-16.0); Immature Granulocytes Pct Auto 0.4 %; Lymphocytes Percent Auto 15.1 % (20-44); Mean Corpuscular HGB Conc 33 gm/dL (32-36); Mean Corpuscular Hemoglobin 29 pg (26-34); Mean Corpuscular Volume 87 fL (80-100); Monocytes Percent Auto 6.4 % (0.0-11.0); Neutrophils Percent Auto 75.9 % (42.0-72.0); Platelet Count* 224 K/uL (140-440); RDW Coefficient of Variation % 13.9 % (11.5-15.5); Red Blood Count 4.52 m/uL (4.00-5.20); White Blood Count* 11.29 K/uL (4.50-11.00)
[2023-06-29 08:30] LABS: Slide Review Reflex No
[2023-06-29] MEDS: miSOPROStoL 25 MCG/0.25 TABLET VAGINAL (09:20)
--- NOTE | 2023-06-29 13:34 | P.LDBA_ITS ---
Subjective History of Present Illness Time Seen by Provider: 13:34 Date Seen: 06/29/23 Narrative: Patient is being admitted to Labor and Delivery for latent labor. She is a 32 year old at 40.3 weeks gestation. Her full history and physical was dictated by myself on 06/06/23. Please see this for details. She was schedule for elective IOL a few days ago but unfortunately was rescheduled for this afternoon due to lack of laboring beds yesterday. She represented this AM due to contractions every 7-10 minutes. SVE by RN was /-3. NST on admission was Cat II due to intermittent late decelerations. Patient was admitted for IOL, IV place and fluid bolus given. She received 1 dose of misoprostol per induction protocol at 0920. Additionally, she's had mild ranging BP since arrive to L&D. Will draw PreE labs now that she meets criteria for gestational hypertension. Specific Issues/Plans G 1 P 0 It's a GIRL!!!DEA! [facility]. Family history of Friedreich Ataxia. 3 of 5 of her sister's kids have this. This is an autosomal recessive neurodegenerative disease. Referral placed to genetics: patient declines genetic counseling and/or testing Level 2 US ordered on 01/10/23: 01/29/23: EFW: 299g, 83%. Anterior placenta, not previa. SDP: 4.9cm. Cervix: 39.5mm. Normal anatomy. Met with genetic counselor. Needs follow up in 3 weeks to complete anatomy scan. F/U completed on 02/21/23: Confirms Normal anatomy. [id number]: Low risk, girl 2. Elevated 1 hr GTT = 162. 3 hr GTT: fasting 112, other values normal. * Referred to palliative medicine physician with fasting glucose elevated in prediabetic range; patient declines * Repeat 3 hr GTT vs one week of glucometer testing thereafter - where she did 5 days of monitoring and all values were WNL. Recommend 150 mins exercise per week and nutrition consult, patient declined. 3. Body mass index 35.7. Hemoglobin A1c: 5.4 Recommend daily baby aspirin starting at 12 weeks Consider BPP and/or NST weekly at 37 weeks Growth on 06/06/23: EFW at the 83rd percentile, AC at the 90th percentile. 4. History of depression in the past. Has not been on medication for 8 years. Mood currently stable. 5. Migraines: -ER visit on 01/06/23. Had elevated BP. -Baseline labs collected on 01/10/23 -Recommend to add Reglan to Tylenol -Fioricet also ordered flu:Declines covid: completed initial series. not boosted. Recommended. Declines H&P: By Dr. Bo on 06/06/23 OB - Problem Based A/P Additional Plan (1) : Status: Acute (2) Gestational hypertension: Status: Acute Plan - Will start titrating pitocin - Pending pre-eclampsia labs OB Exam Physical Exam Vital signs: Temp Pulse Resp BP Pulse Ox 98 F 85 16 143/76 H 98 06/29/23 12:31 06/29/23 12:31 06/29/23 12:31 06/29/23 12:31 06/29/23 12:48 Narrative: Physical exam: General: No acute distress Psych: Alert and oriented x3, full affect HEENT: Normocephalic, atraumatic Lungs: Unlabored breathing Neuro: No focal deficit. Mentating appropriately Pelvic exam: /- Detailed Labor and Delivery Exam Contraction intensity: Moderate
[2023-06-29 13:58] LABS: Hematocrit 39.2 % (33.0-51.0); Mean Corpuscular HGB Conc 33 gm/dL (32-36); Mean Corpuscular Hemoglobin 29 pg (26-34); Mean Corpuscular Volume 86 fL (80-100); Platelet Count* 235 K/uL (140-440); Red Blood Count 4.54 m/uL (4.00-5.20); White Blood Count* 9.69 K/uL (4.50-11.00)
[2023-06-29 14:03] LABS: Slide Review Reflex No
[2023-06-29 14:11] LABS: Creatinine* 0.5 mg/dL (0.5-1.5); Estimated Glomerular Filt Rate 126 ml/min
[2023-06-29 14:12] LABS: Alanine Aminotransferase* 12 U/L (4-35); Aspartate Amino Transferase* 18 U/L (12-35); Blood Urea Nitrogen* 8 mg/dL (5-24)
[2023-06-29 14:19] LABS: Total Protein Urine 5 mg/dL
[2023-06-29] MEDS: ROPIVACAINE 0.2% 100 ml 100 ML 12 MG EPIDURAL (14:35)
[2023-06-29] MEDS: BUPIVACAINE 0.25% PF 10 ML 10 ML ML EPIDURAL (14:36)
--- NOTE | 2023-06-29 14:40 | PM.ANBPRC ---
PFSH PFSH Surgical History History of cholecystectomy ?Z90.49 - Acquired absence of other specified parts of digestive tract (ICD-10) H/O endoscopy ?Z98.890 - Other specified postprocedural states (ICD-10) H/O colonoscopy ?Z98.890 - Other specified postprocedural states (ICD-10) Family History Aunt Ovarian cancer Social History What is your current living situation?: I presently have a place to live Problems where you live: no known problems In the past 12 months, utilities in danger of being shut off: no In past 12 months, lack of transportation kept you from medical appts, meetings, work, or getting things needed for daily living: no In the past 12 mos, have been you worried that your food would run out before you had money to buy more?: never true In the past 12 mos, the food you bought just didn't last and you didn't have money to buy more?: never true Smoking Status: Never smoker How often does anyone, including family, friends and others, physically hurt you: never How often does anyone, including family, friends and others, insult or talk down to you: never How often does anyone, including family, friends and others, threaten you with harm: never How often does anyone, including family, friends and others, scream or curse at you: never Little interest or pleasure in doing things: not at all Feeling down, depressed, or hopeless: not at all Meds Home Medications and Allergies Home Medications Medication Instructions Recorded Confirmed Type calcium carbonate (Tums) 200 mg PO BID 11/22/22 06/29/23 History cetirizine 10 mg tablet (Zyrtec) 10 mg PO QDAY PRN 11/22/22 06/29/23 History docosahexaenoic acid 200 mg 200 mg PO DAILY 11/22/22 06/29/23 History capsule ( DHA) acetaminophen 500 mg tablet 500 mg PO Q6H PRN 05/02/23 06/29/23 History (Tylenol Extra Strength) Allergies Allergy/AdvReac Type Severity Reaction Status Date / Time No Known Drug Allergies Allergy Verified 06/29/23 06:11 Results Labs Labs: Laboratory Results - last 24 hr 06/29/23 06/29/23 06/29/23 07:40 13:51 13:54 WBC 11.29 H 9.69 RBC 4.52 4.54 Hgb 13.1 13.0 Hct 39.2 39.2 MCV 87 86 MCH 29 29 MCHC 33 33 RDW Coeff of Chun 13.9 Plt Count 224 235 Neut % (Auto) 75.9 H Lymph % (Auto) 15.1 L [place] % (Auto) 6.4 Eos % (Auto) 2.0 Baso % (Auto) 0.2 Neut # (Auto) 8.60 H Lymph # (Auto) 1.70 [place] # (Auto) 0.70 Eos # (Auto) 0.20 Baso # (Auto) 0.00 Abs Immat Gran (auto) 0.00 Imm/Tot Granulo (auto) 0.4 BUN 8 Creatinine 0.5 Estimated Creat Clear 136.90 Estimated GFR 126 AST 18 ALT 12 Urine Creatinine 111.0 Protein/Creatinin Ratio 0.00 Urine Total Protein 5 Blood Type A Positive Antibody Screen NEGATIVE Vital Signs Vital Signs: Last Vital Signs Temp 98 F 06/29/23 12:31 Pulse 82 06/29/23 14:38 Resp 16 06/29/23 12:31 BP 118/69 06/29/23 14:38 Pulse Ox 97 06/29/23 14:37 Weight: 102.058 kg Height: 162.56 cm Anesthesia Procedures Epidural Insertion Patient Location: OB Start Time: 14:00 Stop Time: 14:40 Start Date: 06/29/23 Stop Date: 06/29/23 Reason for Block: procedure for pain Patient Position: sitting Performed By: Daquan Scott Preanesthetic Checklist: IV checked, risks and benefits discussed, monitors and equipment checked, pre-op evaluation, timeout performed and anesthesia consent Prep: chlorhexidine gluconate Monitoring: blood pressure monitoring, continuous pulse oximetry and heart rate Approach: midline Vertebral Space: lumbar (1-5) Epidural Technique: JOSUE saline Needle Type: Tuohy needle Injection Technique: continuous catheter Needle gauge: 17 Needle Length (cm): 10 cm Needle Insertion Depth (cm): 7 Catheter Gauge: 19 Catheter Type: multi-orifice Catheter at skin depth (cm): 13 Test Dose Result: negative and lidocaine 1.5% with epinephrine 1 to 200,000
[2023-06-29] MEDS: OXYTOCIN 30 unit/500 ML in NS 30 UNIT/500 ML BAG IVPB (14:43)
[2023-06-29] MEDS: LACTATED RINGERS 1000 ML 1,000 ML 1125 ML IV (16:23)
[2023-06-29] MEDS: AZITHROMYCIN 500 MG in 0.9 % SODIUM CHLORIDE 250 ml 250 ML 255 MG IVPB (17:52)
--- NOTE | 2023-06-29 17:52 | PM.OBPNL ---
Subjective Time Seen by Provider: 14:08 Date Seen: 06/29/23 Narrative: RN requests assessment for AROM due to difficulty tracing fetus and contractions. She is s/p epidural. Additionally, patient heart rate tracing has been cat II due to late deceleration and variable decelerations that improve with IV fluid bolus and repositioning. Objective Vital Signs: Last Vital Signs Temp 98 F 06/29/23 12:31 Pulse 81 06/29/23 17:41 Resp 16 06/29/23 15:41 BP 127/75 06/29/23 17:41 Pulse Ox 99 06/29/23 16:08 Pelvic Exam Dilation (cm): 3 Effacement (%): 75 Station: -2 Contractions Contraction intensity: Moderate Pitocin Rate (mU/min): 2 Plan Plan: - Patient verbally consented to AROM and placement of internal monitors. AROM at 1610 with clear fluid. Patient internalized with FSE and IUPC without complications. - Recurrent late decelerations noted after AROM. Moderate variability. Pitocin turned off and patient was repositioned. IV bolus given. - After 1 hour off of Pitocin, recurrent deceleration still present. Unable to restart pitocin. Repeat SVE: 1715 showed unchanged exam. - Discussed with patient that I am concern for well being given the persistent late decelerations and her low cervical dilation. This is her first labor and she will need significant more time to reach full cervical dilation. Unfortunately, I do not think fetus will tolerate the stress of continued contractions, let alone head compression from active pushing. At this point, I recommend a primary delivery. - The patient was consented for section. She understands that the four main categories of risk include pain, bleeding, infection, and damage to surrounding structures. Regarding infection, she understands that we will be delivering appropriate antibiotics (for her it will be 2g of ancef and 500 mg of Azithromycin), however that the risk of infection following section still is approximately 5%. She understands that though the risk is very low that there is always a risk of damage to the bladder, uterus, ovaries, fallopian tubes, bowels, ureters, or even the fetus. She understands that most injuries can be addressed at the time of surgery, however, such an injury may require additional surgeries to fix. Lastly, she understands that a section carries a risk of bleeding, and that while this bleeding can be addressed with multiple medical and surgical modalities (including hysterectomy), that there is the possibility of needing a blood transfusion. She reports she would accept a blood transfusion. Lastly, she understands that a section does increase risks for future pregnancies and deliveries including, but not limited to, the risk of uterine rupture or placenta accreta. - All questions answered to patient's and spouse's satisfaction. Consent signed - Plan: Proceed toward urgent delivery - Hgb/plt: 13.0/ 235 - T&S: A+, antibody negative Gestational HTN - Based on mild range in blood pressures 4 hours apart. - pre E labs within normal limits with a PC ratio of 0.00 - Will continue to monitor
[2023-06-29] MEDS: LACTATED RINGERS 1000 ML 1,000 ML 125 ML IV (18:20)
--- NOTE | 2023-06-29 20:08 | P.NB_ITS ---
Nerve Block Nerve Block Time Seen by Provider: 19:55 Date Seen: 06/29/23 Type of block requested by surgeon for post-operative analgesia: TAP Side: bilateral Time out performed: Yes Verification of patient name: Yes Verification of date of : Yes Site marking: site marked Name of person performing procedure: Gerald Kim Continuous monitoring Was continuous monitoring of O2 sat, B/P, monitoring and evaluation advisor, recorded every 15 minutes?: Yes Procedure Checklist: sterile prep, needles and gloves Ultrasound guided. Images saved: Yes Medications given in 5ml increments after negative aspiration: Marcaine %: 0.25 mL: 30 Needle gauge: 20 and Exparel mL: 10 Needle gauge: 20 Patient tolerated procedure well: Yes Additional comments: Injected in 5ml increments after negative aspiration Block Charges Block Charge (with Pro Fee): TAP Bilateral Use of Ultrasound Machine for Block: Yes- US Guidance/pain block
--- NOTE | 2023-06-29 20:08 | W.ANESCHARGE ---
Anesthesia Charges Start Date/Time Anesthesia Start Date: 06/29/23 Anesthesia Start Time: 18:02 Stop Date/Time Anesthesia Stop Date: 06/29/23 Anesthesia Stop Time: 20:02 Summary Emergency: EQUIPMENT ASSOCIATE
--- NOTE | 2023-06-29 21:18 | P.OBPRC_ITS ---
Procedure Time Seen by Provider: 18:00 Date of procedure: 06/29/[address] [facility] bill your pro fee for this procedure?: Yes Procedure Description: DELIVERY BY SECTION Date of Service: 06/29/2023 Delivery time: Summary: Admitted for latent labor/induction of labor at 40.3, primary lower uterine transverse section, Pfannenstiel, Closed with sutures, QBL 755 cc, no complications, Findings: Normal uterus, bilateral ovaries and tubes. Denuded bladder serosa, bladder confirmed to be intact after backfilling with 300 cc of sterile milk. 8/9 Weight 3740 g. Primary Indication: 1. Nonreassuring heart tracing remote from delivery Procedures: Primary lower uterine transverse section Specimens Removed: Placenta Surgeon: Celeste Bo MD Anesthesia: Epidural and TAP Report: Prophylactic antibiotic, 2 g of Ancef and 500 mg of Azithromycin were given before patient was taken to OR. After arrival to the operating room patient was placed in the supine position with left lateral tilt after epidural anesthesia was bolused. Laparotomy A pfannenstiel incision was made through the anterior abdominal wall with #10 scalpel approximately 2 cm above the pubic symphysis. The incision was extended sharply with the #10 scalpel through the subcutaneous tissue to the level of fascia. The fascia was entered sharply with a #10 scalpel (Pfannenstiel) in the midline and extended in semi-elliptical fashion with Faustin scissor. The underlying muscles were dissected off the overlying fascia by grasping the superior aspect of fascia with two rohan clamps and blunt dissection was used along the midline. The fascia was further from rectus muscle with Faustin scissor and/or cautery. In similar fashion, the lower aspect of fascia was also grasped with two Rohan clamps and both blunt and sharp dissection was used to separate fascia from rectus muscle. The rectus muscles were in the midline bluntly with digits. The peritoneum was then entered bluntly. The peritoneal incision was then extended superiorly and inferiorly under direct visualization with care being taken to avoid bladder and bowel. No adhesions were noted. The peritoneal incision was enlarged bluntly by lateral traction from the surgeon's and clothing sales assistant's hand. Ismael retractor was inserted into the abdomen and was expelled. Bladder blade was used for exposure instead. Delivery A bladder flap was note developed due to the bladder being low off the lower uterine segment. A low transverse hysterotomy was made then with #10 scalpel and extended laterally and cephalad with fingers in a low transverse fashion with Manu Willis technique with care being taken to avoid injury to the fetus. The amniotic cavity (membrane) was then entered with spontaneous rupture of membrane, and the amniotic fluid was noted to be clear, fetus was delivered cephalic. With delivery of the baby, at 2 cm right lower uterine segment extension was noted. This was clamped with ring forceps for temporary hemostasis. Placenta was delivered spontaneously with steady traction on cord and manual separation of placenta from uterine wall. Closure Uterine cavity was cleaned after placental delivery with lap sponge x 2. The hysterotomy was closed in two layers with stitches using 0 vicryl with continuous locking stitches and 0 monocryl in a continuous non locking manner. Two additional [id number] were placed at the left uterine angle. Another 3 cm long layer of continuous locking stitches were placed with 0 Vicryl in the middle of the hysterotomy due to continued oozing. Hemostasis was achieved as needed with electrocautery. The ovaries/tubes/uterine surface were evaluated. They were found to be normal. Hugo was applied at the hysterotomy. Hemostasis was confirmed again. At this point, the serosa of the dome of the bladder was noted to be denuded with slight oozing. The bladder was backfilled with 300 mL of sterile milk. Bladder noted to be intact without any spillage of sterile milk. 3-0 Vicryl was used to reinforce the bladder serosa in a continues non locking manner. Fascia was closed with running stitches using 0 Vicryl. Subcutaneous layer was irrigated. Hemostasis was checked for and found to be adequate. The subcutaneous layer was closed with running 2-0 Vicryl sutures. The skin was closed with 4-0 Vicryl subcuticular sutures . The incision was cleaned, Exofin applied, and Mepilex dressing placed. The procedure was considered terminate at this time. Intraoperative Complications: None QBL: 755 cc Uterotonics: 40 unit of Pitocin, TXA x2 given 30 minutes apart. Disposition: The patient tolerated the procedure well. She was recovered in Obstetric PACU for close monitoring in stable condition, with a contracted uterus and normal transvaginal bleeding. The was sent to mother?s bedside. The placenta was sent to pathology due to nonreassuring heart tracing and gestational hypertension. Debrief with OR team performed and specimen reviewed at the conclusion of the procedure. [place] Infant total score - 1 minute: 8 total score - 5 minute: 9
[2023-06-29] MEDS: ACETAMINOPHEN 500 MG TABLET 1000 MG PO (23:45)
[2023-06-30] VITALS (19 sets, daily range): BP systolic 104–126; BP diastolic 69–78; PULSE 62–90; RESP 16–18; TEMP 36.3–36.8; O2SAT 97–100
[2023-06-30] MEDS: diphenhydrAMINE 50 MG/ML inj 12.5 MG IVP ×3 (00:03→07:16)
[2023-06-30] MEDS: LACTATED RINGERS 1000 ML 1,000 ML 125 ML IV (00:26)
[2023-06-30] MEDS: KETOROLAC 30 MG/ML inj IVP ×4 (01:58→20:39)
[2023-06-30] MEDS: ACETAMINOPHEN 500 MG TABLET 1000 MG PO ×3 (06:49→22:35)
[2023-06-30] MEDS: DOCUSATE SODIUM 100 MG CAPSULE PO (07:52)
--- NOTE | 2023-06-30 11:16 | P.OBPN_ITS ---
OB - PN:Subj Subjective Date Seen: 06/30/23 Patient comments OB post-: no complaints, pain well controlled, tolerating diet and flatus present [place] status: Narrative: The patient is a 32-year-old 1 now para 1001 who is postoperative day 1. Following a primary low transverse section for nonreassuring heart tones yesterday evening. She had been admitted to the hospital at 40 3/7 weeks gestation for labor. She received diagnosis of gestational hypertension without severe features after she had two blood pressure readings following admission, greater than 30 minutes apart, of 140s over 70 to 80s. This morning, the patient feels well. Her pain is been adequately controlled current medications. She still is a little numbness over the abdomen, presumably from the TAP block. Her infant is reportedly doing well. She is . Her vital signs, including blood pressure, have been stable since delivery. Urine output is adequate. Gonzalez catheter has been removed. OB - PN: Obj Exam Physical Exam: Vital signs: Temp Pulse Resp BP Pulse Ox O2 Del Method 98.2 F 62 16 104/72 97 Room Air 06/30/23 07:45 06/30/23 07:45 06/30/23 09:07 06/30/23 07:45 06/30/23 07:45 06/30/23 07:45 Constitutional: Constitutional: no acute distress Routine Neck Exam: Neck: Present normal inspection Routine Respiratory Exam: Respiratory: Present CTA bilaterally; Absent respiratory distress Routine Cardiovascular Exam: Cardiovascular: Present RRR; Absent murmur Routine Abdominal Exam: Abdominal: Present soft; Absent tenderness Fundus: Present firm Routine Extremities Exam: Extremities: Present normal inspection and pedal edema; Absent calf tenderness Routine Neurological Exam: Neurological: Present alert and oriented X3 Routine Psychiatric Exam: Psychiatric: Present normal affect Wound Management: Method: suture Examination: Present clean, dry and intact; Absent erythematous Comments: Pfannenstiel incision, dressing present, clean and dry. OB - PN: Obj Data Labs Labs: Laboratory Results - last 24 hr 06/29/23 06/29/23 06/30/23 13:51 13:54 05:37 WBC 9.69 RBC 4.54 Hgb 13.0 11.0 L Hct 39.2 MCV 86 MCH 29 MCHC 33 Plt Count 235 BUN 8 Creatinine 0.5 Estimated Creat Clear 136.90 Estimated GFR 126 AST 18 ALT 12 Urine Creatinine 111.0 Protein/Creatinin Ratio 0.00 Urine Total Protein 5 OB - PN: A/P Delivery Assessment and Plan (1) Gestational hypertension: Status: Acute (2) S/P section: Status: Acute Plan day: 1 Plan: routine care Comments: The nursing staff can remove the dressing later today and the patient can shower. If there are any concerns about appearance of the incision, I can be contacted.
[2023-06-30 13:53] LABS: Rapid Plasma Reagin (RPR) Non Reactive (Non Reactive)
[2023-07-01 01:30] VITALS: BP 114/74; PULSE 81; RESP 16; O2SAT 98
[2023-07-01] MEDS: KETOROLAC 30 MG/ML inj IVP (02:20)
[2023-07-01 04:29] VITALS: BP 122/75; PULSE 88; RESP 16; TEMP 37; O2SAT 97
[2023-07-01] MEDS: IBUPROFEN 600 MG TABLET PO (07:25)
--- NOTE | 2023-07-01 09:31 | PM.OBDSVD1 ---
DS: Providers Provider Time Seen by Provider: 09:15 Date Seen: 07/01/23 Date of admission: 06/29/23 05:45 Primary care physician: Celeste Bo MD Admitting Clinician: Celeste Bo MD Attending Physician on discharge: Johanna King MD Date of Discharge: 07/01/23 DS: Diagnosis Discharge Diagnosis (1) S/P section: Status: Acute (2) Gestational hypertension: Status: Acute Exam Const: Vital Signs, click to edit/add: Vital Signs - 24 hr 06/30/23 11:07 06/30/23 11:55 06/30/23 12:07 Temperature 97.4 F L Pulse Rate [Pulse Oximeter] 72 Respiratory Rate 16 16 16 Blood Pressure [Le ft Arm] 108/72 Pulse Oximetry 98 Oxygen Delivery Me thod Room Air 06/30/23 16:00 06/30/23 16:07 06/30/23 17:07 Temperature 97.9 F Pulse Rate [Pulse Oximeter] 72 Respiratory Rate 16 16 16 Blood Pressure [Le ft Arm] 111/69 Pulse Oximetry 97 Oxygen Delivery Me thod Room Air 06/30/23 20:29 07/01/23 01:30 07/01/23 04:29 Temperature 97.7 F 98.6 F Pulse Rate [Pulse Oximeter] 90 81 88 Respiratory Rate 16 16 16 Blood Pressure [Le ft Arm] 113/78 114/74 122/75 Pulse Oximetry 98 98 97 Oxygen Delivery Me thod Room Air Room Air Room Air Documenting provider has reviewed patient's vital signs: yes Common normals: no apparent distress and oriented x3 General appearance: cooperative and comfortable HENMT: Common normals: normocephalic Head and scalp: normocephalic Resp: Common normals: normal respiratory effort Cardio: Common normals: regular rate and regular rhythm Rate: regular rate Rhythm: regular rhythm GI: Common normals: soft to palpation and non-tender Inspection: incision (clean, dry, intact) Inspection of incision: healing well Palpation: soft Extremity: Common normals: normal to inspection and no pedal edema Neuro: Common normals: oriented x3 Psych: Common normals: affect normal OB - DS: Summary Hospital Course Hospital Course: The patient is a 32 year old G 1 now P 1001 admitted at 40 3/7 weeks gestation on 06/29/23 for latent labor. She had an uncomplicated primary delivery for non-reassuring status remote from delivery. She delivered a viable female infant. She is breast feeding. the patient has done well. Pain has been well controlled. Vital signs have been stable. Peripartum Data delivery method: Primary C/S; Labored Procedures: Procedures Operation Date: 06/29/23 18:15 Actual Procedure Side Surgeon p Section Celeste Bo MD complications: none Gender: Female Discharge Plan: Home Status at Discharge Functional status at discharge: independent ambulation Overall status at discharge: patient is back to baseline Time Spent with Patient Time attestation: Total time spent providing and/or coordinating discharge services: Discharge Plan Discharge Disposition: Home, Self-Care Date of Admission: 06/29/23 05:45 Attending Provider on Discharge: Johanna King Primary Care Provider: Celeste Bo Condition: Stable Anticipated Discharge Date/Time: 07/01/23 09:36 Discharge Medications: New docusate sodium 100 mg Capsule 100 mg PO DAILY Qty: 30 0RF ibuprofen 600 mg Tablet 600 mg PO Q6H PRN (Reason: Pain) Qty: 30 0RF oxycodone 5 mg Tablet 5 - 10 mg PO Q6H PRN (Reason: Pain) Qty: 12 0RF Continued acetaminophen [Tylenol Extra Strength] 500 mg tablet 500 mg PO Q6H PRN (DME) [place] Strips [facility] [place] .MEDSUPPLY Qty: 100 3RF Rx Instructions: Test blood sugar 4 times daily. (DME) lancets Misc See Rx Instructions .MEDSUPPLY Qty: 100 3RF Rx Instructions: Test blood sugar 4 times daily. (DME) Blood Glucose Meter [facility] [place] .MEDSUPPLY Qty: 1 0RF Rx Instructions: As directed DHA 200 mg capsule 200 mg PO DAILY cetirizine [Zyrtec] 10 mg tablet 10 mg PO QDAY PRN calcium carbonate [Tums] 200 mg calcium (500 mg) tablet,chewable 200 mg PO BID [id number] [Fioricet] 50-300-40 mg capsule 1 - 2 cap PO Q4-6H PRN (Reason: pain) Qty: 14 0RF omeprazole 40 mg capsule,delayed release(DR/EC) 40 mg PO QDAY Qty: 60 1RF Hold Instructions: PATIENT REQUEST Discharge Orders: Discharge Order (Routine); Ordered 07/01/23 Ordered By: Johanna King Patient Education: OB Over the Counter Medication Information, OB /Breast Feeding Additional Instructions: Discharge instructions were reviewed with the patient including signs and symptoms of infection and home going medications Lifting Restrictions: 20 pounds for 6 weeks No not submerge incision under water X 2 weeks? Nothing vaginally for 6 weeks: no tampons or intercourse Do not drive while taking narcotic pain medication(s) Off Work or School for 8 weeks Symptoms to report to doctor: Bleeding that saturates more than one pad per hour Passing clots larger than the size of a golf ball Pain not relieved by prescribed medication Fever above 100.4 degrees Fahrenheit A foul vaginal odor Difficulty in emotions, mood, and functions Thoughts of hurting yourself and/or Painful, reddened area in your breast Any drainage, redness, or tenderness in your IV/epidural site Severe headache that doesn't improve after taking medications Changes in vision, including temporary loss of vision, blurred vision, and/or light sensitivity Upper abdominal pain (usually under ribs on the right side) Decrease in urination or painful, frequent urinating Chest pain Shortness of breath Tenderness or pain with redness and/swelling in the calf(s) of your leg Optional 2-week visit: incision check, discuss feeding concerns, review control options and screen for anxiety/depression. 6-week visit for an annual exam. consultation services are available to all mothers and babies for the first year after delivery.? To make an appointment, please call [phone]. Activity Level: Activity as Tolerated Discharge Diet: Regular Follow Up Appointments: Celeste Bo MD [Primary Care Provider] - Forms: [employer] Info Instructions DS:Data Additional Comments Additional comments: Hgb 11.0.
[2023-07-01] MEDS: DOCUSATE SODIUM 100 MG CAPSULE PO (09:33)
[2023-07-01 10:13] VITALS: BP 119/77; PULSE 89; RESP 16; TEMP 36.8; O2SAT 96
[2023-07-01] MEDS: ACETAMINOPHEN 500 MG TABLET 1000 MG PO (13:22)
[2023-07-01] MEDS: OXYCODONE 5 MG TABLET PO (13:22)
== END 2023-07-01 13:45 | disposition home or self-care (01) | DRG 788 ==
PROVIDERS: Admitting Provider Obstetrics & Gynecology; PCP Obstetrics & Gynecology; Visit Provider Obstetrics & Gynecology
PROC: (CPT 59514; principal; 2023-06-29 18:00)
DX: O76 Abnormality in fetal heart rate and rhythm complicating labor and delivery (principal); O13.4 Gestational [pregnancy-induced] hypertension without significant proteinuria, complicating childbirth; Z3A.40 40 weeks gestation of pregnancy; Z37.0 Single live birth; G89.18 Other acute postprocedural pain; Z15.89 Genetic susceptibility to other disease; G43.909 Migraine, unspecified, not intractable, without status migrainosus
CPT/HCPCS: 01967; 01968; 36415; 59200; 64488; 76942; 82565; 82570; 84156; 84450; 84460; 84520; 85018; 85025; 85027; 86592; 86850; 86900; 86901; 88307; 99140; A9270; C9290; J0456; J0665; J1100; J1200; J1885; J2274; J2371; J2405; J2590; J2795; J3010; J7050; J7120

== ENCOUNTER 2023-12-26 15:09 | Outpatient (CLI) | payer MEDICAID, SELFPAY ==
--- OUTSIDE RECORDS SUMMARY | 2023-12-26 15:18 | XMS_ITS | Referral Summary ---
Author Organization [facility] Address [address] [place] [address] Care Team Providers Care Hairspring Vibrator Name Role Phone Karen Peña MD [facility] Unavailable Allergies No known active allergies Medications cetirizine (ZYRTEC) 10 MG tablet Take 10 mg by mouth daily Active medroxyPROGESTERo ne (DEPO-PROVERA) 150 MG/ML IM injectionIndicati ons:Dysmenorrhea, Depo-Provera contraceptive status Inject 1 mL (150 mg) into the muscle every 3 months 3 mL 3 0 Active Additional Information Patient not taking.Reported on 04/11/2021 cyclobenzaprine (FLEXERIL) 10 MG tabletIndications :Acute right-sided low back pain without sciatica Take 0.5-1 tablets (5-10 mg) by mouth 3 times daily as needed for muscle spasms 20 tablet 2 Active Hospital, Clinic, or Other Facility Administered [...] 06/29/2016 Abnormal Pap smear of cervix 09/19/2014 Overview (03/10/2020): 09/19/13 Abnormal pap, patient reported 10/18/14 Normal pap, pt reported 06/20/15 Normal pap, pt reported 07/31/17 ASCUS pap, neg HR HPV. Plan 1 year pap per provider 10/17/18 NIL pap, + HR HPV (16/18). 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 Overview (09/17/2018): Overview: Paternal aunt ovarian cancer, dad with colon cancer by age 44, needs genetic evaluation External hemorrhoid 05/28/2013 Family history of colon cancer 05/28/2013 Resolved Problems Problem Noted Date Diagnosed Date [...] School Help Needed Not on file 11/10 Comments No Sex and Gender Information Value Date Recorded Sex Assigned at Not on file Legal Sex Female 11:07 AM CDT Gender Identity Not on file Sexual Orientation Not on file Last Filed Vital Signs Vital Sign Reading Time Taken Comments Blood Pressure 124/76 04/11/2021 2:28 PM FLEET ADMINISTRATIVE ASSISTANT Pulse 78 04/11/2021 2:28 PM FLEET ADMINISTRATIVE ASSISTANT Temperature 36.9 ??C (98.5 ??F) 04/11/2021 2:28 PM CS T Respiratory Rate 16 04/11/2021 2:28 PM FLEET ADMINISTRATIVE ASSISTANT Oxygen Saturation 99% 04/11/2021 2:28 PM FLEET ADMINISTRATIVE ASSISTANT Inhaled Oxygen Concentration - - Weight 88.9 kg (196 lb) 04/11/2021 2:28 PM FLEET ADMINISTRATIVE ASSISTANT Height 162.6 cm (5' 4) 04/11/2021 2:28 PM FLEET ADMINISTRATIVE ASSISTANT Body Mass Index 33.64 04/11/2021 2:28 PM FLEET ADMINISTRATIVE ASSISTANT Plan of Treatment Not on file Procedures Procedure Name Priority Date/Time Associated Diagnosis Comments COLONOSCOPY - HIM SCAN 9 12:00 AM CDT PAP IMAGED THIN LAYER SCREEN Routine 10/17/2018 5:50 PM CDT Routine general medical examination at a health care facility HPV HIGH RISK TYPES DNA CERVICAL Routine 10/17/2018 5:30 PM CDT Routine general medical examination at a health care facility COMPREHENSIVE METABOLIC PANEL STAT 10/01/2018 4:08 PM CDT LIPID PROFILE Routine 07/31/2017 3:31 PM CDT Hyperlipidemia with target LDL less than 130 from Last 3 Months or Most Recently Relevant to Health Maintenance Results * COLONOSCOPY - HIM SCAN (10/24/2018 12:00 AM CDT) 10/24/2018 us Provider Outside PROCEDURES Final Result * Pap imaged thin layer screen with HPV - recommended age 30 - 65 years (select HPV order below) (10/17/2018 5:50 PM CDT) PAP NIL COPATH Copath Report Patient Name: NAMAN CORTÉS MR#: [id number] Specimen #: [id number] Collected: 10/17/2018 Received: 10/22/2018 Reported: 10/23/2018 13:53 [...] adenocarcinomas or other cancers. COLLECTION SITE: Client: ??[facility] Location: [facility] ([place]) The technical component of this testing was completed at the [facility], with the professional component performed at the [facility], [address] [place] [id number] ([phone]) COPATH Cytologic material (specimen) 10/17/2018 5:50 PM CDT 10/22/2018 7:35 AM CDT us Karen Peña MD LAB - [facility] INICAL SPECIMEN Final Result COPATH * (ABNORMAL) HPV High Risk Types [...] and its performance characteristics determined by the [facility], Molecular Diagnostics Laboratory. It has [...] 10/24/2018 8:05 AM CDT [facility] Comment:[id number] 10/17/2018 5:30 PM CDT 10/17/2018 6:10 PM CDT us Karen Peña MD LAB - BLOOD ORD ERABLES Final Result [address] [address] * Comprehensive metabolic panel (10/01/2018 4:08 PM CDT) Sodium 138 133 - 144 mmol/L 10/01/2018 4:30 PM [facility] Potassium 3.9 3.4 - 5.3 mmol/L 10/01/2018 4:30 PM [facility] Chloride 106 94 - 109 mmol/L 10/01/2018 4:30 PM [facility] Carbon Dioxide 29 20 - 32 mmol/L 10/01/2018 4:35 PM [facility] Anion Gap 3 3 - 14 mmol/L 10/01/2018 4:35 PM [facility] Glucose 85 70 - 99 mg/dL 10/01/2018 4:35 PM [facility] Urea Nitrogen 9 7 - 30 mg/dL 10/01/2018 4:35 PM [facility] Creatinine 0.78 0.52 - 1.04 mg/dL 10/01/2018 4:35 PM [facility] GFR Estimate >90 >60 mL/min/{1. 73_m2} 10/01/2018 4:35 PM [facility] Comment: Non GFR Calc Starting 02/05/2018, serum creatinine based estimated GFR (eGFR) will be calculated using the Chronic Kidney Disease Epidemiology Collaboration (CKD-EPI) equation. GFR Estimate If Black >90 >60 mL/min/{1. 73_m2} 10/01/2018 4:35 PM [facility] Comment: GFR Calc Starting 02/05/2018, serum creatinine based estimated GFR (eGFR) will be calculated using the Chronic Kidney Disease Epidemiology Collaboration (CKD-EPI) equation. Calcium 9.4 8.5 - 10.1 mg/dL 10/01/2018 4:35 PM [facility] Bilirubin Total 0.4 0.2 - 1.3 mg/dL 10/01/2018 4:[address] [facility] Albumin 4.2 3.4 - 5.0 g/dL 10/01/2018 4:[address] [facility] Protein Total 8.4 6.8 - 8.8 g/dL 10/01/2018 4:38 PM CDT [facility] Alkaline Phosphatase 70 40 - 150 U/L 10/01/2018 4:38 PM CDT [facility] ALT 27 0 - 50 U/L 10/01/2018 4:38 PM CDT [facility] AST 18 0 - 45 U/L 10/01/2018 4:38 PM CDT [facility] Blood specimen (specimen) 10/01/2018 4:08 PM CDT 10/01/2018 4:17 PM CDT us Rogelio Westbrook MD LAB - BLOOD ORDERABLES Final R esult [facility] [address] [place] [address], [facility] [phone] [facility] [address] [place] [address], [facility] [phone] * (ABNORMAL) Lipid Profile (07/31/2017 3:31 PM CDT) Cholesterol 172 <200 mg/dL 08/01/2017 5:51 PM CDT [facility] Triglycerides 183(H) <150 mg/dL 08/01/2017 5:51 PM CDT [facility] Comment: Borderline high: ??150-199 mg/dl High: ? 200-499 mg/dl Very high: ? >499 mg/dl Fasting specimen HDL Cholesterol 41(L) >49 mg/dL 8 6:01 PM CDT [facility] LDL Cholesterol Calculated 94 <100 mg/dL 08/01/2017 6:01 PM CDT [facility] Comment:Desirable: <100 mg/d l Non HDL Cholesterol 131(H) <130 mg/dL 08/01/2017 6:01 PM CDT [facility] Comment: Above Desirable: ??130-159 mg/dl Borderline high: ??160-189 mg/dl High: ? 190-219 mg/dl Very high: ? >219 mg/dl Blood specimen (specimen) 07/31/2017 3:31 PM CDT 07/31/2017 3:36 PM CDT Yolanda Chowdary TRACK LAYER WAREHOUSE PERSON LAB - BLOOD ORDERAB LES Final Result Performing Organization Address City/State/[facility] Co de Phone Number [facility] [address] [place] [address] from Last 3 Months or Most Recently Relevant to Health Maintenance Insurance [facility] Care Teams Hairspring Vibrator Relationship Specialty Start Date End Date Karen Peña MD [address] [place] [address] PCP - General Internal Medicine 09/16/18 Benita Gonsales NP [facility] [address] [place], [place] [address] Nurse Practitioner Nurse Practitioner Psych/Mental Health 09/17/18
--- OUTSIDE RECORDS SUMMARY | 2023-12-26 15:18 | XMS_ITS | Encounter Summary ---
Author Organization [facility] Address [address] [place] [address] Care Team Providers Care Medical Csr Name Role Phone [facility], [facility] Primary Care Provide r None Primary Care Provider Unavailabl e No Ref-Primary, Physician Primary Care Provider Yolanda Chowdary APRN SUSTAINABLE AGRICULTURE SPECIALIST Primary Care Provi renetta Unavailable Yolanda Chowdary APRN, CNP Unavailable Un available Yolanda Chowdary APRN, CNP Unavailable Un available Karen Peña MD Unavailable Karen Peña MD Primary Care P rovider [facility], Benita L PROGRAM SUPPORT CLERK Unavailable [phone] Yolanda Chowdary APRN SUSTAINABLE AGRICULTURE SPECIALIST Unavailable Un available [facility], Benita David PROGRAM SUPPORT CLERK Unavailable [phone] Karen Peña MD Unavailable Yolanda Chowdary APRN SUSTAINABLE AGRICULTURE SPECIALIST Unavailable Un available Karen Peña MD Unavailable Yolanda Chowdary APRN SUSTAINABLE AGRICULTURE SPECIALIST Unavailable Un available Yolanda Chowdary APRN, CNP Unavailable Un available Reason for Visit * Reason Onset Date Comments Panel Management 09/29/2014 pap due Encounter Details Date Type Department Care Team (Late st Contact Info) Description 09/29/[address], [address] [place] [address] [place] [address] [place] [address] Panel Management (pap due) Social History Tobacco Use Types Packs/Day Years Used Date Smoking Tobacco: Former Cigarettes Alcohol Use Standard Drinks/Week Comments Yes 0 (1 standard drink = 0.6 oz pur e alcohol) Comments No Sex and Gender Information Value Date Recorded Sex Assigned at Not on file Legal Sex Female 11:07 AM CDT Gender Identity Not on file Sexual Orientation Not on file documented as of this encounter Miscellaneous Notes * Telephone Encounter - Tiffany Malik - 09/29/2014 1:43 PM CDT Panel Management Review Date of last visit with a [facility] provider: Juan Miguel Wallace on 06/02/14. Date of next visit with a [facility] provider: None. Problem List There is no [...] Juan Miguel Wallace MD LAB - [facility] CLINICAL SP ECIMEN Final Result MISYS documented in this encounter Visit Diagnoses Diagnosis Screening for malignant neoplasm of cervix- Primary Screening for malignant neoplasm of the cervix documented in this encounter Care Teams Medical Csr Relationship Specialty Start Date End Date [facility], [facility] [id number] [place] [phone] PCP - General 04/16/14 06/20/16 None PCP - General 06/21/16 10/19/16 No Ref-Primary, Physician PCP - General 04/03/17 07/30/17 Yolanda Chowdary APRN SUSTAINABLE AGRICULTURE SPECIALIST PCP - General Nurse Practitioner - Adult Health 07/31/17 09/15/18 Yolanda Chowdary APRN SUSTAINABLE AGRICULTURE SPECIALIST PCP - Assigned PCP 08/05/17 04/23/18 Kaern Peña MD [address] [place] [address] PCP - General Internal Medicine 09/16/18 Yolanda Chowdary APRN SUSTAINABLE AGRICULTURE SPECIALIST Assigned PCP 08/05/17 08/03/18 Karen Peña MD [address] [place] [address] Assigned PCP 08/04/18 11/01/19 Benita Gonsales PROGRAM SUPPORT CLERK [facility] [address] [place] [address] Nurse Practitioner Nurse Practitioner Psych/Mental Health 09/17/18 Yolanda Chowdary APRN SUSTAINABLE AGRICULTURE SPECIALIST Assigned PCP 11/02/19 10/30/20 Benita Gonsales, PROGRAM SUPPORT CLERK [address] [place] [address] Assigned Behavioral Health Provider 12/12/19 03/20/20 Karen Peña MD [address] [place] [address] Assigned PCP 10/31/20 02/26/21 Yolanda Chowdary APRN SUSTAINABLE AGRICULTURE SPECIALIST Assigned PCP 02/27/21 04/30/21 Karen Peña MD [address] [place] [address] Assigned PCP 05/01/21 10/21/21 Yolanda Chowdary APRN SUSTAINABLE AGRICULTURE SPECIALIST Assigned PCP 10/22/21 02/03/22 Yolanda Chowdary APRN SUSTAINABLE AGRICULTURE SPECIALIST Assigned PCP 04/15/22 04/21/22 documented as of this encounter
--- OUTSIDE RECORDS SUMMARY | 2023-12-26 15:18 | XMS_ITS | Encounter Summary ---
Author Organization [facility] Address [address] [place] [address] Care Team Providers Care Software Test Technician Name Role Phone Karen Peña MD Unavailable Karen Peña MD Primary Care P rovider [facility], Benita Hernandez LUMBER STRAIGHTENED Unavailable [phone] Yolanda Chowdary APRN JAVA SOLUTIONS ARCHITECT Unavailable Un available [facility], Benita L LUMBER STRAIGHTENED Unavailable [phone] Karen Peña MD Unavailable Yolanda Chowdary APRN JAVA SOLUTIONS ARCHITECT Unavailable Un available Karen Peña MD Unavailable Yolanda Chowdary APRN JAVA SOLUTIONS ARCHITECT Unavailable Un available Yolanda Chowdary APRN JAVA SOLUTIONS ARCHITECT Unavailable Un available Encounter Details Date Type Department Care Team (Latest Contact Info) Description 10/29/2019 Historic Results Social History Tobacco Use Types Packs/Day Years Used Date Smoking Tobacco: Every Day Cigarettes Smokeless Tobacco: Never Alcohol Use Standard Drinks/Week Comments Yes 0 (1 standard drink = 0.6 oz pur e alcohol) occ PHQ-2 Answer Date Recorded PHQ-2 Score 3 10/29/2019 Comments No Sex and Gender Information Value [...] documented as of this encounter Care Teams Software Test Technician Relationship Specialty Start Date End Date Karen Peña MD [address] [place] [address] PCP - General Internal Medicine 09/16/18 Karen Peña MD [address] [place] [address] Assigned PCP 08/04/18 11/01/19 Benita Gonsales LUMBER STRAIGHTENED [facility] [address] [place], [place] [address] Nurse Practitioner Nurse Practitioner Psych/Mental Health 09/17/18 Yolanda Chowdary APRN JAVA SOLUTIONS ARCHITECT Assigned PCP 11/02/19 10/30/20 [place] [id number] [place] [address] Assigned Behavioral Health Provider 12/12/19 03/20/20 Karen Peña MD [address] [place] [address] Assigned PCP 10/31/20 02/26/21 Yolanda Chowdary APRN JAVA SOLUTIONS ARCHITECT Assigned PCP 02/27/21 04/30/21 Karen Peña MD [address] [place] [address] Assigned PCP 05/01/21 10/21/21 Yolanda Chowdary APRN JAVA SOLUTIONS ARCHITECT Assigned PCP 10/22/21 02/03/22 Yolanda Chowdary APRN JAVA SOLUTIONS ARCHITECT Assigned PCP 04/15/22 04/21/22 documented as of this encounter
--- OUTSIDE RECORDS SUMMARY | 2023-12-26 15:18 | XMS_ITS | Clinical Summary ---
Author Organization [facility] Address [address] [place] [id number] Care Team Providers Care Teacher Cclc Name Role Phone Karen Peña MD [facility] JOBS TRAINER Unavailable [phone] Allergies No known active allergies Medications cetirizine [...] 02/14/2018 Active medroxyPROGESTERone (DEPO-PROVERA) syringe 150 mgIndications:Contracept vreito management 150 mg IM EVERY 3 MONTHS [...] Comments Blood Pressure 124/76 04/11/2021 2:28 PM DEPARTMENT CLINICIAN Pulse 78 04/11/2021 2:28 PM DEPARTMENT CLINICIAN Temperature 36.9 ??C (98.5 ??F) 04/11/2021 2:28 PM CS T Respiratory Rate 16 04/11/2021 2:28 PM DEPARTMENT CLINICIAN Oxygen Saturation 99% 04/11/2021 2:28 PM DEPARTMENT CLINICIAN Inhaled Oxygen Concentration - - Weight 88.9 kg (196 lb) 04/11/2021 2:28 PM DEPARTMENT CLINICIAN Height 162.6 cm (5' 4) 04/11/2021 2:28 PM DEPARTMENT CLINICIAN Body Mass Index 33.64 04/11/2021 2:28 PM DEPARTMENT CLINICIAN Plan of Treatment Health Maintenance Due Date [...] of 3 - 19+ 3-dose series) 09/10/2007 LIPID 07/31/2018 07/31/2017 HPV FOLLOW-UP 10/18/2019 10/17/2018, 07/31/2017 NICOTINE/TOBACCO CESSATION COUNSELING Q 1 YR 10/18/2019 10/17/2018, 07/31/2017 PAP FOLLOW-UP 10/18/2019 10/17/2018, 07/20, 06/20/2015, Additional history exists YEARLY PREVENTIVE VISIT 10/18/2019 10/17/2018, 07/31 PHQ-9 04/27/2020 10/29/2019, 09/20, 09/17/2018, Additional history exists GLUCOSE 10/01/2021 10/01/2018, 07/20, 09/22/2015, Additional history exists COVID-19 Vaccine ( - 2023- season) 2023 INFLUENZA VACCINE (#1) 2023 COLONOSCOPY 10/25/2023 10/24/2018, 06/2018, 04/03/2017, Additional history exists COLORECTAL CANCER SCREENING 10/25/2023 DTAP/TDAP/TD IMMUNIZATION (7 - Td or Tdap) 03/22/2024 03/22/2014, 08/15/1993, 04/09/1990, Additional history exists RSV VACCINE (1 - 1-dose 75+ series) 09/10/2063 PAP Discontinued 10/17/2018, 07/20, 06/20/2015, Additional history exists HPV IMMUNIZATION Aged Out No longer e ligible based on patient's age to complete this topic MENINGITIS IMMUNIZATION Aged Out No l onger eligible based on patient's age to complete this topic RSV MONOCLONAL ANTIBODY Aged Out No l onger eligible based on patient's age to complete this topic Procedures Procedure Name Priority Date/Time Associated Diagnosis [...] Reyna Report Patient Name: TATA CORTÉS MR#: [id number] Specimen #: [id number] Collected: 10/17/2018 Received: 10/22/2018 Reported: 10/23/2018 13:53 [...] adenocarcinomas or other cancers. COLLECTION SITE: Client: ??[facility] Location: [facility] (R) The technical component of this testing was completed at the [facility], with the professional component performed at the [facility], [address] [place] [phone] ([phone]) LOPEZ Cytologic material (specimen) 10/17/2018 5:50 PM CDT 10/22/2018 7:35 AM CDT us Karen Peña MD LAB - OPTIME CL INICAL SPECIMEN Final Result [facility] * (ABNORMAL) HPV High Risk Types DNA Cervical (10/17/2018 5:30 PM CDT) HPV Source [facility] 10/24/2018 8:05 AM CDT [facility] HPV 16 DNA Negative NEG^Nega tive 10/24/2018 2:44 PM CDT [facility] HPV 18 DNA Negative NEG^Nega tive 10/24/2018 2:44 PM CDT [facility] Other HR HPV Positive(A) NEG^Nega tive 10/24/2018 2:44 PM CDT [facility] Final Diagnosis This patient's sample is positive for other HR HPV DNA (types 31, 33, 35, 39, 45, 51, 52, 56, 58, 59, 66 or 68), not HPV 16 or HPV 18 DNA. This result requires clinical correlation with concurrent cytology findings. 10/24/2018 2:44 PM CDT [facility] Comment: This test was developed and its performance characteristics determined by the [facility], Molecular Diagnostics [facility]. It has [...] Description Cervical Cells 10/24/2018 8:05 AM CDT [facility] Comment:[id number] 10/17/2018 5:30 PM CDT 10/17/2018 6:10 PM CDT us Karen Peña MD LAB - BLOOD ORD ERABLES Final Result [facility] [address] [place] [address] * Comprehensive metabolic panel (10/01/2018 4:08 PM CDT) Sodium 138 133 - 144 mmol/L 10/01/2018 4:30 PM T [facility] Potassium 3.9 3.4 - 5.3 mmol/L 10/01/2018 4:[address] [facility] Chloride 106 94 - 109 mmol/L 10/01/2018 4:[address] [facility] Carbon Dioxide 29 20 - 32 mmol/L 10/01/2018 4:[address] [facility] Anion Gap 3 3 - 14 mmol/L 10/01/2018 4:[address] [facility] Glucose 85 70 - 99 mg/dL 10/01/2018 4:[address] [facility] Urea Nitrogen 9 7 - 30 mg/dL 10/01/2018 4:[address] [facility] Creatinine 0.78 0.52 - 1.04 mg/dL 10/01/2018 4:[address] [facility] GFR Estimate >90 >60 mL/min/{1. 73_m2} 10/01/2018 4:[address] [facility] Comment: Non GFR Calc Starting 02/05/2018, serum creatinine based estimated GFR (eGFR) will be calculated using the Chronic Kidney Disease Epidemiology Collaboration (CKD-EPI) equation. GFR Estimate If Black >90 >60 mL/min/{1. 73_m2} 10/01/2018 4:[address] [facility] Comment: GFR Calc Starting 02/05/2018, serum creatinine based estimated GFR (eGFR) will be calculated using the Chronic Kidney Disease Epidemiology Collaboration (CKD-EPI) equation. Calcium 9.4 8.5 - 10.1 mg/dL 10/01/2018 4:35 PM CDT [facility] Bilirubin Total 0.4 0.2 - 1.3 mg/dL 10/01/2018 4:38 PM CDT [facility] Albumin 4.2 3.4 - 5.0 g/dL 10/01/2018 4:38 PM CDT [facility] Protein Total 8.4 6.8 - 8.8 g/dL 10/01/2018 4:38 PM CDT [facility] Alkaline Phosphatase 70 40 - 150 U/L 10/01/2018 4:38 PM CDT [facility] ALT 27 0 - 50 U/L 10/01/2018 4:38 PM CDT [facility] AST 18 0 - 45 U/L 10/01/2018 4:38 PM CDT [facility] Blood specimen (specimen) 10/01/2018 4:08 PM CDT 10/01/2018 4:17 PM CDT us Rogelio Westbrook MD LAB - BLOOD ORDERABLES Final R esult [facility] [address] [place] [address], [facility] [phone] [facility] [address] [place] [address], [facility] [phone] * (ABNORMAL) Lipid Profile (07/31/2017 3:31 PM CDT) Cholesterol 172 <200 mg/dL 08/01/2017 5:51 PM CDT [facility] Triglycerides 183(H) <150 mg/dL 08/01/2017 5:51 PM CDT [facility] Comment: Borderline high: ??150-199 mg/dl High: ? 200-499 mg/dl Very high: ? >499 mg/dl Fasting specimen HDL Cholesterol 41(L) >49 mg/dL 8 6:01 PM CDT [facility] LDL Cholesterol Calculated 94 <100 mg/dL 08/01/2017 6:01 PM CDT [facility] Comment:Desirable: <100 mg/d l Non HDL Cholesterol 131(H) <130 mg/dL 08/01/2017 6:01 PM CDT [facility] Comment: Above Desirable: ??130-159 mg/dl Borderline high: ??160-189 mg/dl High: ? 190-219 mg/dl Very high: ? >219 mg/dl Blood specimen (specimen) 07/31/2017 3:31 PM CDT 07/31/2017 3:36 PM CDT us Yolanda Chowdary PROFESSOR OF HISTORICAL THEOLOGY INTERMEDIATE ACCOUNTANT LAB - BLOOD ORDERAB LES Final Result [facility] [address] [place] [address] from Last 3 Months or Most Recently Relevant to Health Maintenance Insurance [facility] Care Teams Teacher Cclc Relationship Specialty Start Date End Date Karen Peña MD [address], [place] [address] PCP - General Internal Medicine 09/16/18 Benita Gonsales NP [facility] [address] [place], [place] [address] Nurse Practitioner Nurse Practitioner Psych/Mental Health 09/17/18
--- OUTSIDE RECORDS SUMMARY | 2023-12-26 15:18 | XMS_ITS | Encounter Summary ---
Author Organization [facility] Address [address] [place] [id number] Care Team Providers Care Grey Washer Name Role Phone Karen Peña MD Primary Care P rovider [facility], Benita Hernandez SHUTTLE BUGGY OPERATOR Unavailable [phone] Yolanda Chowdary APRN FRAME BANDER Unavailable Un available [facility], Benita Hernandez SHUTTLE BUGGY OPERATOR Unavailable [phone] Karen Peña MD Unavailable Yolanda Chowdary APRN FRAME BANDER Unavailable Un available Kraen Peña MD Unavailable Yolanda Chowdary APRN FRAME BANDER Unavailable Un available Yolanda Chowdary APRN FRAME BANDER Unavailable Un available Encounter Details Date Type Department Care Team (Late st Contact Info) Description 03/10/2020 MyC Medical Advice [address] [place] [address] Cherelle Romero, RN Social History [...] documented as of this encounter Care Teams Grey Washer Relationship Specialty Start Date End Date Karen Peña MD [address] [place] [address] PCP - General Internal Medicine 09/16/18 Benita Gonsales NP [facility] [address] [place] [address] Nurse Practitioner Nurse Practitioner Psych/Mental Health 09/17/18 Yolanda Chowdary APRN FRAME BANDER Assigned PCP 11/02/19 10/30/20 [place] [address] [place] [address] Assigned Behavioral Health Provider 12/12/19 03/20/20 Karen Peña MD [address] [place] [address] Assigned PCP 10/31/20 02/26/21 Yolanda Chowdary APRN FRAME BANDER Assigned PCP 02/27/21 04/30/21 Karen Peña MD [address] [place] [address] Assigned PCP 05/01/21 10/21/21 Yolanda Chowdary APRN FRAME BANDER Assigned PCP 10/22/21 02/03/22 Yolanda Chowdary APRN FRAME BANDER Assigned PCP 04/15/22 04/21/22 documented as of this encounter
== END 2023-12-26 15:10 | disposition home or self-care (01) ==
PROVIDERS: Visit Provider Registered Nurse
DX: R11.15 Cyclical vomiting syndrome unrelated to migraine (principal)
CPT/HCPCS: 80053; 83690; 84702

== ENCOUNTER 2024-06-09 09:15 | Outpatient (CLI) | payer MEDICAID, SELFPAY ==
--- NOTE | 2024-06-09 09:15 | CRLHL7_ITS ---
For Patients: As a result of the Cures Act, medical imaging exams and procedure reports are released immediately into your electronic medical record. You may view this report before your referring provider. If you have questions, please contact your health care provider. OB ULTRASOUND LESS THAN 14 WEEKS, 06/09/2024 CLINICAL HISTORY: Dating and viability. COMPARISON: None. TECHNIQUE: Real time seay scale imaging of the fetus was performed transvaginally. FINDINGS: LMP: 04/08/2024. MP by LMP: 01/13/2025. GA: 8 weeks 6 days. CRL: 2.5 cm, 9 weeks 2 days. MP: . FHR: 173 bpm. GEST SAC: 4.1 cm, appears within normal limits. YOLK SAC: 4.8 mm, appears within normal limits. RIGHT OV: 2.5 x 2.2 x 1.8 cm, CL. Within normal limits. LEFT OV: 3.4 x 1.8 x 1.6 cm, within normal limits. IMPRESSION: Single living intrauterine with sonographic gestational age 9 weeks 2 days and sonographic due date 01/10/2025. Sergio Bradley M.D. Diagnostic Radiologist [email or web address] Transcribed: 12:27 pm DW/Dictated by: Sergio Bradley MD @ 06/09/2024 10:58:00 AM (Electronically Signed)
== END 2024-06-09 09:16 | disposition home or self-care (01) ==
LOC: US 09:16
PROVIDERS: Visit Provider Advanced Practice Midwife
DX: Z34.91 Encounter for supervision of normal pregnancy, unspecified, first trimester (principal); Z3A.09 9 weeks gestation of pregnancy
CPT/HCPCS: 76817

== ENCOUNTER 2024-06-09 10:25 | Outpatient (CLI) | payer MEDICAID, SELFPAY | END 2024-06-09 10:26 | disposition home or self-care (01) | PROVIDERS: Visit Provider Advanced Practice Midwife | DX: Z34.81 Encounter for supervision of other normal pregnancy, first trimester (principal); Z67.10 Type A blood, Rh positive | CPT/HCPCS: 82565; 82570; 83020; 83021; 84156; 84450; 84460; 84520; 85660; 86592; 86703; 86704; 86706; 86762; 86787; 86803; 86850; 86900; 86901; 87086; 87340 ==

== ENCOUNTER 2024-08-20 09:24 | Outpatient (CLI) | payer MEDICAID, SELFPAY | END 2024-08-20 09:25 | disposition home or self-care (01) | LOC: US 09:24 | PROVIDERS: Visit Provider Obstetrics & Gynecology | DX: O09.522 Supervision of elderly multigravida, second trimester (principal); O99.212 Obesity complicating pregnancy, second trimester; Z84.89 Family history of other specified conditions; Z3A.19 19 weeks gestation of pregnancy | CPT/HCPCS: 76811 ==

== ENCOUNTER 2024-09-24 13:45 | Outpatient (CLI) | payer MEDICAID, SELFPAY | END 2024-09-24 13:46 | disposition home or self-care (01) | LOC: US 13:45 | PROVIDERS: Visit Provider Obstetrics & Gynecology | DX: O09.522 Supervision of elderly multigravida, second trimester (principal); Z36.2 Encounter for other antenatal screening follow-up; Z3A.24 24 weeks gestation of pregnancy | CPT/HCPCS: 76816 ==

== ENCOUNTER 2024-10-22 10:51 | Outpatient (CLI) | payer MEDICAID, SELFPAY | END 2024-10-22 10:52 | disposition home or self-care (01) | LOC: NFLDREF 10-27 21:17 | PROVIDERS: Visit Provider Obstetrics & Gynecology | DX: Z34.83 Encounter for supervision of other normal pregnancy, third trimester (principal) | CPT/HCPCS: 86592 ==

== ENCOUNTER 2024-10-29 08:35 | Outpatient (CLI) | payer MEDICAID, SELFPAY | END 2024-10-29 08:36 | disposition home or self-care (01) | LOC: NFLDREF 11-06 01:51 | PROVIDERS: Visit Provider Obstetrics & Gynecology | DX: R73.09 Other abnormal glucose (principal) | CPT/HCPCS: 82951; 82952 ==

== ENCOUNTER 2024-11-17 14:08 | Outpatient (CLI) | payer MEDICAID, SELFPAY ==
--- NOTE | 2024-11-17 14:00 | CRLHL7_ITS ---
For Patients: As a result of the Century Cures Act, medical imaging exams and procedure reports are released immediately into your electronic medical record. You may view this report before your referring provider. If you have questions, please contact your health care provider. OB ULTRASOUND LMP: 04/08/2024. MP by LMP: 01/13/2025. GA: 31 w, 6 d. Single. Comparison: 09/24/2024, 08/20/2024. INDICATION: Supervision of elderly multigravida. TECHNIQUE: Real time grayscale imaging of the fetus was performed. Transabdominal. CERVIX: Not visualized. POSITIONING: Vertex. AMNIOTIC FLUID: 5.8 cm. SDP (N: greater than 2 x 1 cm) PLACENTA: Technique: Transabdominal. PLACENTA POSITION: Posterior. DOPPLER: heart rate: 152 bpm. BIOMETRY: BPD: 8.6 cm. 34 w, 4 d, 97 percent. HC: 32.0 cm. 36 w, 0 d, >97 percent. AC: 29.8 cm. 33 w, 5 d, 93 percent. FL: 6.2 cm. 32 w, 0 d, 39 percent. FL/AC ratio: 20.68 percent. HC/AC ratio: 1.07. EFW: 2221 g. Weight: 4 lbs, 14 oz. age by this US: 34 w, 1 d. MP by this US: 12/28/2024. Percentile by MP: 89 percent. IMPRESSION: 1. Sonographic gestational age 34 weeks 1 day and sonographic due date 12/28/2024. Sonographic age is 16 days ahead of the clinical age. 2. Estimated weight 89th percentile. Abdominal circumference is 93rd percentile. Head circumference greater than 97th percentile. Sergio Bradley M.D. Diagnostic Radiologist [email or web address] ALAN/[email or web address]/Dictated by: Sergio Bradley MD @ 11/18/2024 7:45:00 AM (Electronically Signed)
== END 2024-11-17 14:09 | disposition home or self-care (01) ==
LOC: US 14:09
PROVIDERS: Visit Provider Obstetrics & Gynecology
DX: O09.523 Supervision of elderly multigravida, third trimester (principal); O36.63X0 Maternal care for excessive fetal growth, third trimester, not applicable or unspecified; Z3A.31 31 weeks gestation of pregnancy
CPT/HCPCS: 76816

== ENCOUNTER 2024-12-15 10:34 | Outpatient (CLI) | payer MEDICAID, SELFPAY ==
[2024-12-16 11:04] LABS: Strep B DNA Probe POSITIVE (Negative)
[2024-12-16 11:05] LABS: Strep B Susceptibility Needed? No
== END 2024-12-15 10:35 | disposition home or self-care (01) ==
LOC: NFLDREF 10:35
PROVIDERS: Visit Provider Advanced Practice Midwife
DX: Z34.93 Encounter for supervision of normal pregnancy, unspecified, third trimester (principal)
CPT/HCPCS: 87081; 87653

== ENCOUNTER 2024-12-22 10:23 | Outpatient (CLI) | payer MEDICAID, SELFPAY ==
--- NOTE | 2024-12-22 10:15 | CRLHL7_ITS ---
For Patients: As a result of the Cures Act, medical imaging exams and procedure reports are released immediately into your electronic medical record. You may view this report before your referring provider. If you have questions, please contact your health care provider. OB ULTRASOUND LMP: 04/08/2024. MP by LMP or US: 01/13/2025. GA: 36 w, 6 d. Single. Comparison: 11/17/2024, 09/24/2024, 08/20/2024. INDICATION: Obesity. TECHNIQUE: Real time grayscale imaging of the fetus was performed. Transabdominal. CERVIX: Not visualized. POSITIONING: Vertex. AMNIOTIC FLUID: 5.2 cm. SDP (N: greater than 2 x 1 cm) BIOPHYSICAL PROFILE: 2: Gross body movements 2: tone 0: Respiratory activity 2: Amniotic fluid SDP (N: greater than 2 x 1 cm) 6/8: Total score PLACENTA: Technique: Transabdominal. PLACENTA POSITION: Posterior, right wall. DOPPLER: heart rate: 147 bpm. IMPRESSION: Biophysical profile score 6/8 with absent respiratory activity. Sergio Bradley M.D. Diagnostic Radiologist [email or web address] ALAN/[email or web address] cabrera/Dictated by: Sergio Bradley MD @ 12/22/2024 11:22:00 AM (Electronically Signed)
== END 2024-12-22 10:24 | disposition home or self-care (01) ==
LOC: US 10:24
PROVIDERS: Visit Provider Obstetrics & Gynecology
DX: O99.213 Obesity complicating pregnancy, third trimester (principal); Z3A.36 36 weeks gestation of pregnancy
CPT/HCPCS: 76819

== ENCOUNTER 2025-01-01 14:02 | Outpatient (CLI) | payer MEDICAID, SELFPAY ==
--- NOTE | 2025-01-01 14:00 | CRLHL7_ITS ---
For Patients: As a result of the Century Cures Act, medical imaging exams and procedure reports are released immediately into your electronic medical record. You may view this report before your referring provider. If you have questions, please contact your health care provider. INDICATION: Obesity. COMPARISON: OB ultrasound 12/22/2024. TECHNIQUE: Ultrasound OB pelvis transabdominal. Real time grayscale imaging of the fetus was performed without non-stress testing. FINDINGS: Sonographic imaging demonstrates a single living intrauterine gestation. The fetus has a regular cardiac rate of 137 beats per minute. The fetus has a cephalic orientation. The placenta lies posteriorly. Single deepest pocket measures 7.2 cm. breathing movements: 2/2 Gross body movements: 2/2 tone: 2/2 Amniotic fluid volume: 2/2 Total: 09/26 IMPRESSION: Normal biophysical profile score 8 out of 8. Dictated by Alix Hyman MD @ 01/02/2025 4:27:36 AM (Electronically Signed)
== END 2025-01-01 14:03 | disposition home or self-care (01) ==
LOC: US 14:02
PROVIDERS: Visit Provider Obstetrics & Gynecology
DX: O99.210 Obesity complicating pregnancy, unspecified trimester (principal)
CPT/HCPCS: 76819

== ENCOUNTER 2025-01-05 10:03 | Outpatient (CLI) | payer MEDICAID, SELFPAY ==
--- NOTE | 2025-01-05 10:00 | CRLHL7_ITS ---
For Patients: As a result of the Cures Act, medical imaging exams and procedure reports are released immediately into your electronic medical record. You may view this report before your referring provider. If you have questions, please contact your health care provider. OB ULTRASOUND BIOPHYSICAL PROFILE CLINICAL HISTORY: Obesity. TECHNIQUE: Real time seay scale imaging of the fetus was performed. Transabdominal imaging performed. FINDINGS: MP by LMP: 01/13/2025. GA: 38 weeks 6 days. Gestation: Single. Cervix: Not visualized. Positioning: Vertex. Amniotic Fluid: 6.3 cm SDP. BIOPHYSICAL PROFILE Gross Body Movements: 2 Tone: 2 Respiratory Activity: 2 Amniotic Fluid SDP: 2 Total Score: 8 Placenta: Technique: TA. Placenta Position: Posterior, right wall. Dopplers: Heart Rate: 139 bpm. IMPRESSION: Normal biophysical profile score of 8/8. Sergio Bradley M.D. Diagnostic Radiologist [email or web address] Transcribed: 11:55 am DW/Dictated by: Sergio Bradley MD @ 01/05/2025 11:19:00 AM (Electronically Signed)
== END 2025-01-05 10:04 | disposition home or self-care (01) ==
LOC: US 10:04
PROVIDERS: Visit Provider Obstetrics & Gynecology
DX: O99.213 Obesity complicating pregnancy, third trimester (principal); Z3A.38 38 weeks gestation of pregnancy
CPT/HCPCS: 76819

== ENCOUNTER 2025-01-06 05:51 | Inpatient (IN) | payer MEDICAID, SELFPAY ==
[2025-01-06] VITALS (19 sets, daily range): BP systolic 94–113; BP diastolic 55–75; PULSE 58–86; RESP 16; TEMP 36.6–36.9; O2SAT 96–100; BMI 38.6
[2025-01-06 06:48] LABS: Hematocrit* 37.6 % (33.0-51.0); Hemoglobin* 12.3 gm/dL (12.0-16.0); Immature Granulocytes Abs Auto 0.17 K/uL (0.00-0.30); Immature Granulocytes Pct Auto 1.6 %; Mean Corpuscular HGB Conc 33 gm/dL (32-36); Mean Corpuscular Hemoglobin 29 pg (26-34); Mean Corpuscular Volume 89 fL (80-100); RDW Coefficient of Variation % 14.8 % (11.5-15.5); Red Blood Count* 4.22 m/uL (4.00-5.20); White Blood Count* 10.87 K/uL (4.50-11.00)
[2025-01-06 06:50] LABS: Lymphocytes Absolute Auto 1.70 K/uL (0.90-2.90); Slide Review Reflex No
--- NOTE | 2025-01-06 07:06 | P.LDBA_ITS ---
Subjective History of Present Illness Date Seen: 01/06/25 Narrative: Patient is being admitted to Labor and Delivery for scheduled section. She is a 34 year old at weeks gestation. Her full history and physical was dictated by myself on 01/06/25. Please see this for details. Active movement. Denies LOF, vaginal bleeding or abnormal vaginal discharge. Intermittent nonpainful contractions. She's very nervous but ready to deliver this baby. Specific Issues/Plans Partner: Talib? Daughter: Kellen Baby Girl: Dana Ramirez H&P: 12/22/24 # Hx GHTN dx during labor * baseline preE labs ordered? * 24 hour urine ordered at [facility], not completed. Reviewed recommendation at 07/08 visit. #? Advanced maternal age? NIPT low risk 20-week Level II detailed ultrasound with MFM: ordered #? Previous C/S Planning repeat at or after 39 weeks Surgery request form sent 11/17/24 #Obesity, Pre- BMI 35-39.9? Weekly testing starting at 37 weeks? Growth US at 32 weeks? Delivery recommended: elective delivery considered at >39 0/7 weeks.? surveillance form filled out on 08/27/24 #Hx of asthma as child #Failed 1hr - A1C 5.5% - 1 hr: 178 - 3 hr passed: 107,161, 121, 120. # Fhx Friedeich ataxia in several sisters - Pt had genetic screening in last , negative # GBS +, recommend antibiotic in labor # Pt considering carrier screening via [facility] - would need to be redrawn; declined Imaging:??? level II: Graf at 19w1d gestational age. No anomalies commonly detected by ultrasound were identified, however some views were suboptimal, as described above. Growth parameters and estimated weight were consistent with gestational age predicted by assigned MP. The amniotic fluid volume appeared normal. On transabdominal imaging the cervix appeared long and closed. [facility] reassess anatomy that was suboptimally seen today.?Following this, I recommend repeat growth assessment at 32 weeks and weekly testing starting at 37 weeks. surveillance form filled out on 08/27/24. 11/17/24: Vertex, EFW: 2221 g, 89th percentile, AC: 93%. SDP: 5.8 cm. Vaccinations:?? COVID: declined? Flu:declined Tdap: 12/03/24 RSV: 12/03/24 32 week mental health: 11/17/2024 Last pap:? [Only high-risk abnormal pap results in problem list] ? OB - Problem Based A/P Additional Plan (1) History of : Status: Acute (2) AMA (advanced maternal age) multigravida 35+: Status: Acute (3) Obesity (BMI 35.0-39.9 without comorbidity): Status: Acute (4) Depression: Status: Chronic (5) Anxiety: Status: Chronic Plan - Reviewed surgical plan with patient. R/B/A discussed. Patient and spouse has no further questions. - Hgb 12.3 gm/dL - Plt 258 - T&S, A+ with negative antibody - Plan for repeat ceserean delivery. OB Exam Physical Exam Vital signs: Temp Pulse Resp BP 97.8 F 85 16 111/70 01/06/25 06:34 01/06/25 06:31 01/06/25 06:34 01/06/25 06:31 Narrative: Physical exam: General: No acute distress Psych: Alert and oriented x3, full affect HEENT: Normocephalic, atraumatic Lungs: Unlabored breathing Neuro: No focal deficit. Mentating appropriately Pelvic exam: Deferred
[2025-01-06] MEDS: CEFAZOLIN 2 GM in 0.9 % SODIUM CHLORIDE Mini-bag 100 ML IVPB (07:32)
--- NOTE | 2025-01-06 09:06 | PM.OBPRCCS ---
Procedure Date of procedure: 01/06/25 Will [facility] bill your pro fee for this procedure?: Yes Procedure Description: DELIVERY BY SECTION Date of Service: 01/06/25 Delivery time: 0752 Summary: Admitted for scheduled at 39.0 weeks, repeat lower uterine transverse section - Laufe forceps assisted, Pfannenstiel, Closed with sutures, QBL 695 cc, No complications, Findings: Normal uterus, bilateral ovaries. Filmy adhesion of right fallopian fimbria right side of the uterus. Normal left fallopian tube. 8/9 Weight 3770 g. Primary Indication: 1. History of section x 1 2. Declined TOLAC Procedures: Repeat lower uterine transverse section Specimens Removed: Placenta Surgeon: Celeste Bo MD Manufacturing Finance Manager: KENNETH Ponce Anesthesia: Spinal and TAP Report: Prophylactic antibiotic, 2 g of Ancef was given before patient was taken to OR. After arrival to the operating room patient was placed in the supine position with left lateral tilt after administration of spinal anesthesia. She was prepped and draped in the usual sterile manner. Laparotomy A pfannenstiel incision was made through the anterior abdominal wall with #10 scalpel approximately 2 cm above the pubic symphysis. The incision was extended sharply with the #10 scalpel through the subcutaneous tissue to the level of fascia. The fascia was entered sharply with a #10 scalpel (Pfannenstiel) in the midline and extended in semi-elliptical fashion with Faustin scissor. The underlying muscles were dissected off the overlying fascia by grasping the superior aspect of fascia with two rohan clamps and blunt dissection was used along the midline. The fascia was further from rectus muscle with Faustin scissor and/or cautery. In similar fashion, the lower aspect of fascia was also grasped with two Rohan clamps and both blunt and sharp dissection was used to separate fascia from rectus muscle. The rectus muscles were in the midline bluntly with digits. The peritoneum was then entered bluntly. The peritoneal incision was then extended superiorly and inferiorly under direct visualization with care being taken to avoid bladder and bowel. No adhesions were noted. The peritoneal incision was unable to be enlarged bluntly by lateral traction from the surgeon's and engineer first assistant's hand. Sharp dissection performed to open more space. Patient did not have have much adhesion but tissues were extremely rigid. No elasticity. Ismael retractor was inserted into the abdomen. Delivery A bladder flap was developed by grasping with [place] forcep and enter with Metzenbaun scissor. Then sharp and blunt dissection with Metzenbaum scissor and fingers were performed. A low transverse hysterotomy was made then with #10 scalpel and extended laterally and cephalad with fingers in a low transverse fashion with Manu Willis technique with care being taken to avoid injury to the fetus. The amniotic cavity (membrane) was then entered with spontaneous rupture of membrane, and the amniotic fluid was noted to be clear. Due to inelasticity of rectus abdominis muscle, Laufe forceps applied in an atraumatic manner. Fetus was delivered cephalic. No blade barnard noted. With delivery of the baby, a 3 cm extension inferior to hysterotomy noted at midline. Placenta was delivered spontaneously with steady traction on cord and manual separation of placenta from uterine wall. Closure Uterine cavity was cleaned after placental delivery with lap sponge x 3. The uterine extension repaired with 2-0 vicryl in a continuos non locking manner. Bladder back filled with 250 cc of sterile milk as the apex is close to the bladder border. No defected noted and bladder border well delineated from suture line. The hysterotomy was closed in one layers with stitches using 0 vicryl with continuous locking stitches. Second layer deferred due to proximity of hysterotomy to the bladder. 2 fingure of 8 placed at right hysterotomy angle. Two ygupin-lh-tstbpm placed in the middle of the hysterotomy as well. Hemostasis was achieved as needed with electrocautery. The ovaries/tubes/uterine surface were evaluated. Ismael retractor removed. Hugo applied and hemostasis was confirmed again. Fascia was closed with running stitches using 0 looped PDS. Subcutaneous layer was irrigated. Hemostasis was checked for and found to be adequate. The subcutaneous layer was closed with running 2-0 vicryl sutures. The skin was closed with 3-0 monocryl subcuticular sutures . The incision was cleaned, Exofin applied, and Mepilex dressing placed. The procedure considered terminate at this time. Intraoperative Complications: None QBL: 695 cc Uterotonics/hemostatic agents: 30 u of pitocin, 1g of TXA Disposition: The patient tolerated the procedure well. She was recovered in Obstetric PACU for close monitoring in stable condition, with a contracted uterus and normal transvaginal bleeding. The infant was sent to mother?s bedside. A segment of the cord was obtained for umbilical cord gases due to operative delivery. Cord blood gas was not available at time of operative note entered. The placenta was not sent to pathology. Debrief with OR team performed and specimen reviewed at the conclusion of the procedure.
--- NOTE | 2025-01-06 09:18 | P.ANES_ITS ---
Anesthesia Charges Start Date/Time Anesthesia Start Date: 01/06/25 Anesthesia Start Time: 07:19 Stop Date/Time Anesthesia Stop Date: 01/06/25 Anesthesia Stop Time: 09:13 Coding CPT Codes CPT Codes: ANESTH CS DELIVERY - 71288 ([id number]) P3 - PATIENT W/SEVERE SYS DISEASE, QK - ELECTRIC TRUCK DRIVER 2-4 CNCRNT ANES PROC, QX - BAG FILLER MACHINE OPERATOR SVC W/ MD MED DIRECTION
--- NOTE | 2025-01-06 09:18 | W.ANESCHARGE ---
Anesthesia Charges Start Date/Time Anesthesia Start Date: 01/06/25 Anesthesia Start Time: 07:19 Stop Date/Time Anesthesia Stop Date: 01/06/25 Anesthesia Stop Time: 09:13 Coding CPT Codes CPT Codes: ANESTH CS DELIVERY - 97258 ([id number]) P3 - PATIENT W/SEVERE SYS DISEASE, QK - DRAIN CLEANER PLUMBER 2-4 CNCRNT ANES PROC, QX - APPRENTICE COOK SVC W/ MD MED DIRECTION
--- NOTE | 2025-01-06 09:19 | W.PM.NB ---
Nerve Block Nerve Block Time Seen by Provider: 08:58 Date Seen: 01/06/25 Type of block requested by surgeon for post-operative analgesia: TAP Side: bilateral Time out performed: Yes Verification of patient name: Yes Verification of date of : Yes Name of person performing procedure: Brayden Zachery Continuous monitoring Was continuous monitoring of O2 sat, B/P, air sampling and monitoring, recorded every 15 minutes?: Yes Procedure Checklist: sterile prep, needles and gloves Ultrasound guided. Images saved: Yes Medications given in 5ml increments after negative aspiration: Marcaine %: 0.25 mL: 30 Needle gauge: 20 and Exparel mL: 10 Needle gauge: 20 Patient tolerated procedure well: Yes Block Charges Block Charge (with Pro Fee): TAP Bilateral Use of Ultrasound Machine for Block: Yes- US Guidance/pain block
--- NOTE | 2025-01-06 09:52 | P.ANES_ITS ---
Anesthesia Charges Start Date/Time Anesthesia Start Date: 01/06/25 Anesthesia Start Time: 07:19 Stop Date/Time Anesthesia Stop Date: 01/06/25 Anesthesia Stop Time: 09:13 Coding CPT Codes CPT Codes: ANESTH CS DELIVERY - 37044 ([id number]) QK - DAIRY EQUIPMENT REPAIRER 2-4 CNCRNT ANES PROC, QX - CHROME TANNER SVC W/ MD MED DIRECTION, P3 - PATIENT W/SEVERE SYS DISEASE
--- NOTE | 2025-01-06 09:52 | W.ANESCHARGE ---
Anesthesia Charges Start Date/Time Anesthesia Start Date: 01/06/25 Anesthesia Start Time: 07:19 Stop Date/Time Anesthesia Stop Date: 01/06/25 Anesthesia Stop Time: 09:13 Coding CPT Codes CPT Codes: ANESTH CS DELIVERY - 12642 ([id number]) QK - DOUGHNUT FRYER 2-4 CNCRNT ANES PROC, QX - RESTAURANT SERVICE MANAGER SVC W/ MD MED DIRECTION, P3 - PATIENT W/SEVERE SYS DISEASE
[2025-01-06] MEDS: ACETAMINOPHEN 500 MG TABLET 1000 MG PO (22:44)
[2025-01-07 01:40] VITALS: BP 112/69; PULSE 77; RESP 16; TEMP 36.8; O2SAT 97
[2025-01-07 04:55] VITALS: BP 83/53; PULSE 88; RESP 16; TEMP 36.8; O2SAT 98
[2025-01-07 06:23] LABS: Hemoglobin* 10.3 gm/dL (12.0-16.0)
[2025-01-07 08:30] VITALS: BP 105/69; PULSE 85; RESP 18; TEMP 36.8; O2SAT 98
[2025-01-07] MEDS: DOCUSATE SODIUM 100 MG CAPSULE PO (09:40)
[2025-01-07] MEDS: SODIUM CHLORIDE 0.9 % (FLUSH) 10 ML SYRINGE IVF ×2 (09:40→16:16)
--- NOTE | 2025-01-07 10:06 | P.DS_ITS ---
DS: Providers Provider Date Seen: 01/07/25 Date of admission: 01/06/25 05:51 Primary care physician: Not a Local Provider Admitting Clinician: Celeste Bo MD Attending Physician on discharge: Lotus Ag CNM Date of Discharge: 01/07/25 DS: Diagnosis Discharge Diagnosis (1) History of gestational hypertension: Status: Acute (2) care following delivery: Status: Acute (3) Lactating mother: Status: Acute Exam Narrative: Exam Narrative: GENERAL APPEARANCE:? normal affect, alert, no distress MOOD:? appropriate CHEST:? clear to auscultation HEART:? regular rate and rhythm ABDOMEN:? soft, non-tender the uterine fundus is At Umbilicus, Midline and is appropriate for the stage of recovery. EXTREMITIES:? normal and trace edema Incision: Healing well, no surrounding erythema, abnormal induration or discharge Const: Vital Signs, click to edit/add: Vital Signs - 24 hr 01/06/25 10:16 01/06/25 10:31 01/06/25 10:46 Temperature 97.9 F Pulse Rate [Pulse Oximeter] 66 58 L 70 Respiratory Rate 16 16 16 Blood Pressure [Le ft Arm] 104/55 L 112/68 101/64 Pulse Oximetry 100 100 100 Oxygen Delivery Me thod 01/06/25 11:00 01/06/25 11:16 01/06/25 11:31 Temperature Pulse Rate [Pulse Oximeter] 71 75 84 Respiratory Rate 16 16 16 Blood Pressure [Le ft Arm] 112/75 108/64 99/63 Pulse Oximetry 100 100 99 Oxygen Delivery Me thod 01/06/25 11:45 01/06/25 16:05 01/06/25 20:05 Temperature 98.5 F 97.9 F Pulse Rate [Pulse Oximeter] 73 86 81 Respiratory Rate 16 16 16 Blood Pressure [Le ft Arm] 103/69 103/69 106/67 Pulse Oximetry 100 96 97 Oxygen Delivery Me thod Room Air Room Air 01/07/25 01:40 01/07/25 04:55 01/07/25 08:30 Temperature 98.2 F 98.2 F 98.3 F Pulse Rate [Pulse Oximeter] 77 88 85 Respiratory Rate 16 16 18 Blood Pressure [Le ft Arm] 112/69 83/53 L 105/69 Pulse Oximetry 97 98 98 Oxygen Delivery Me thod Room Air Room Air Room Air OB - DS: Summary Hospital Course Hospital Course: Tata is a 34 y.o. G 2 P 2 who was admitted to [facility] for scheduled repeat section. ?She had a section that was uncomplicated. The patient feels well. ?The pain is well controlled with current medications. ?She has no new complaints. ?She is pumping and feeding EBM and donor milk. reports she feels her milk supply is down this time. the patient has done well.? Vitals have been stable.? She has remained afebrile.? Has a good appetite, is tolerating a general diet. ?She is voiding without difficulty.? She is passing gas and has not had a bowel movement.? She is ambulating and denies any dizziness.? Has small amount of rubra lochia. She is planning the pill for prevention. discussed prrogesterone only pill if she plans to continue pumping and feeding EBM. last time she stopped BF at 8 weeks or so when she went back to work. Discharge home with baby.? Follow up in 2 weeks and 6 weeks.? , may see if needed? Hgb: stable. ?? Labs WNL or stable with trending??? For pain control of perineum, breast and pelvic pain, take 600 mg Ibuprofen every 6 hours as needed by mouth or 1000 mg acetaminophen (Tylenol) every 6 hours by mouth as needed. You can alternate these so you are taking something every 3 hours as needed. A heating pad can also be used for your abdomen or breasts. You may also take docusate sodium up to twice daily to soften your stools and help to prevent constipation. You may wean off of it when your stools return to normal.? Problems: none Peripartum Data Procedures: Procedures Operation Date: 01/06/25 07:15 Actual Procedure Side Surgeon p Repeat Section, Forceps Assisted Celestejass Bo MD complications: none Gender: Female Discharge Plan: Home Time Spent with Patient Time attestation: Total time spent providing and/or coordinating discharge services: Discharge Plan Discharge Disposition: Home, Self-Care Date of Admission: 01/06/25 05:51 Attending Provider on Discharge: Lotus Ag Primary Care Provider: Provider,Not a Local Condition: Stable Anticipated Discharge Date/Time: 01/07/25 19:00 Discharge Medications: New acetaminophen 500 mg Tablet 1,000 mg PO Q6H PRN (Reason: Pain) Qty: 30 0RF docusate sodium 100 mg Capsule 100 mg PO DAILY Qty: 30 0RF ibuprofen 600 mg Tablet 600 mg PO Q6H PRN (Reason: Pain) Qty: 30 0RF oxycodone 5 mg Tablet 5 - 10 mg PO Q4H PRN (Reason: Pain) Qty: 10 0RF Lanolin (HPA) 100 % Cream 1 applic topical TID PRNQty: 7 0RF Continued QQN-eiya-EA-omega 3 fatty no.1 27-1-300 mg capsule 1 cap PO DAILY PRN cetirizine [Zyrtec] 10 mg tablet 10 mg PO QDAY PRN Discontinued acetaminophen [Tylenol Extra Strength] 500 mg tablet 500 mg PO Q6H PRN metoclopramide HCl [Reglan] 10 mg tablet 10 mg PO Q6H PRN (Reason: nausea and vomiting) Qty: 30 2RF ondansetron 4 mg tablet,disintegrating 4 mg PO Q8H PRN (Reason: nausea and vomiting) Qty: 30 0RF Discharge Orders: Discharge Order (Routine); Ordered 01/07/25 Ordered By: Lotus Ag Patient Education: OB Over the Counter Medication Information, OB /Breast Feeding Additional Instructions: Discharge instructions were reviewed with the patient including signs and symptoms of infection and home going medications Lifting Restrictions: 20 pounds for 6 weeks No not submerge incision under water X 2 weeks? Nothing vaginally for 6 weeks: no tampons or intercourse Do not drive while taking narcotic pain medication(s) Off Work or School for 8 weeks Symptoms to report to doctor: * Bleeding that saturates more than one pad per hour * Passing clots larger than the size of a golf ball * Pain not relieved by prescribed medication * Fever above 100.4 degrees Fahrenheit * A foul vaginal odor * Difficulty in emotions, mood, and functions * Thoughts of hurting yourself and/or * Painful, reddened area in your breast * Any drainage, redness, or tenderness in your IV/epidural site * Severe headache that doesn't improve after taking medications * Changes in vision, including temporary loss of vision, blurred vision, and/or light sensitivity * Upper abdominal pain (usually under ribs on the right side) * Decrease in urination or painful, frequent urinating * Chest pain * Shortness of breath * Tenderness or pain with redness and/swelling in the calf(s) of your leg Optional 2-week visit: incision check, discuss feeding concerns, review control options and screen for anxiety/dep ression. 6-week visit for an annual exam. consultation services are available to all mothers and babies for the first year after delivery.? To make an appointment, please call [phone]. Activity Level: Activity as Tolerated and No strenuous activity Discharge Diet: Regular Follow Up Appointments: Provider,Not a Local [Primary Care Provider, Family Practice] [facility] [Provider Group] Forms: [employer] Info Instructions
[2025-01-07 15:00] VITALS: BP 109/75; PULSE 88; RESP 18; TEMP 36.6; O2SAT 97
== END 2025-01-07 18:35 | disposition home or self-care (01) | DRG 788 ==
PROVIDERS: Admitting Provider Obstetrics & Gynecology; Visit Provider Obstetrics & Gynecology
PROC: 10D00Z1 Extraction of Products of Conception, Low, Open Approach (ICD-10-PCS; CPT 59514; principal; 2025-01-06 07:15)
DX: O34.211 Maternal care for low transverse scar from previous cesarean delivery (principal); G89.18 Other acute postprocedural pain; O99.824 Streptococcus B carrier state complicating childbirth; O99.214 Obesity complicating childbirth; O99.344 Other mental disorders complicating childbirth; F32.A Depression, unspecified; F41.9 Anxiety disorder, unspecified; Z3A.39 39 weeks gestation of pregnancy; Z37.0 Single live birth
CPT/HCPCS: 01961; 36415; 64488; 76942; 85018; 85025; 86592; 86850; 86900; 86901; A4314; A9270; J0665; J0666; J0690; J1100; J1885; J2371; J2405; J2590; J3010